=== PATIENT | male | born 1930 | race Caucasian/White ===

== ENCOUNTER 2018-04-06 18:01 | Inpatient (IN) | payer MEDICARE, BC ==
[2018-04-06 18:24] LABS: Hemoglobin 15.1 g/dL (14.0-18.0); Mean Corpuscular HGB CONC 32.2 g/dL (32.0-36.0); Mean Corpuscular Hemoglobin 29.1 pg (27.0-31.0); Mean Corpuscular Volume 90.1 fl (80.0-94.0); Mean Platelet Volume 6.5 fL (7.4-10.4); Platelet Count 284 thou/uL (130-400); RBC Distribution Width 13.9 % (11.5-14.5); Red Blood Cell (RBC) Count 5.21 mill/uL (4.70-6.10); White Blood Cell (WBC) Count 26.2 thou/uL (4.8-10.8)
[2018-04-06 18:26] LABS: INR-International Normal Ratio 1.2; PTT 25.7 SEC (22.9-36.1); Prothrombin Time 15.7 SEC (12.0-14.7)
[2018-04-06 18:32] LABS: ALT (SGPT) 14 U/L (8-55); AST (SGOT) 42 U/L (5-34); Albumin 4.3 g/dL (3.4-4.8); Alkaline Phosphatase 98 U/L (40-150); Anion Gap 15 mmol/L (10-20); BUN (Urea Nitrogen) 20 mg/dL (8.4-25.7); Bilirubin, Total 1.6 mg/dL (0.2-1.2); CK (CPK) 898 U/L (30-200); Calc. Creatinine Clearance 0 mL/min (70-130); Calcium 9.5 mg/dL (7.8-10.44); Carbon Dioxide 23 mmol/L (23-31); Chloride 107 mmol/L (98-107); Estimated GFR-MDRD 60; Globulin 2.3 g/dL (2.4-3.5); Glucose 120 mg/dL (83-110); Potassium 4.6 mmol/L (3.5-5.1); Protein, Total 6.6 g/dL (5.8-8.1); Sodium 140 mmol/L (136-145)
[2018-04-06 18:36] LABS: Troponin I 0.061 ng/mL (< 0.028)
[2018-04-06 18:38] LABS: CKMB 8.1 ng/mL (0-6.6)
[2018-04-06 18:46] LABS: Lymphocytes 19 % (21-51); MDiff Complete? YES; Monocytes 6 % (0-10); Neutrophil 74 % (42-75); Reactive Lymphocytes 1 % (0-10)
--- NOTE | 2018-04-06 19:19 | CT ---
CT OF BRAIN PERFORMED WITHOUT CONTRAST ENHANCEMENT: 04/06/18 HISTORY: Left sided weakness. There is generalized ventricular and sulcal prominence. There is some asymmetric decreased attenuatio n of the right middle cerebral artery territory and in the right posterior [id number]- occipital junction there is a foci of hemorrhage measuring slightly greater than 1 cm. There is also a smaller foci of hemorrhage along the gyri in the parietal region. There is no mass effect associate d with this. The mastoid air cells and visualized sinuses are clear. IMPRESSION: Decreased attenuation of the right middle cerebral artery territory suggesting a right MCA infarct wh ich appears acute. There is a hemorrhagic component to this. The findings discussed with Dr. Johnson. POS: [facility]
--- NOTE | 2018-04-06 20:30 | RAD ---
PORTABLE CHEST: 04/06/18 COMPARISON: 12/28/14 study. HISTORY: Stroke symptoms. Heart size is borderline. There are atherosclerotic changes of the aorta. The lungs are clear of infi ltrates. No signs of failure. A right humeral prosthesis is present. IMPRESSION: Borderline heart size. POS: [facility]
[2018-04-06 20:45] LABS: Bilirubin Negative (Negative); Blood, Urine Large (Negative); Clarity CLOUDY (Clear); Glucose, Urine (Dipstick) Negative (Negative); Leukocyte Negative (Negative); Nitrite Negative (Negative); Protein, Urine (Dipstick) Trace mg/dL (Neg-Trace); Specific Gravity, Urine 1.013 (1.002-1.036); Urobilinogen 0.2 mg/dL (0.2-1.0)
[2018-04-06 20:49] LABS: Bacteria/HPF None Seen HPF (None Seen); Hyaline Casts/LPF 0-3 HYALINE CAST LPF (0-3 Hyaline); Pathc Cast-AUWi Flag 0.29 (0-2.49); Squamous Epithelial 0-3 HPF (0-3); WBC/HPF 0-3 HPF (0-3)
[2018-04-06 23:11] LABS: Lactic Acid 1.7 mmol/L (0.5-2.2)
[2018-04-07] MEDS ORDERED: Sodium Chloride 0.9% 1,000 ML IV SCH ×2 (00:45→02:30)
[2018-04-07 01:55] LABS: Troponin I 0.064 ng/mL (< 0.028)
[2018-04-07] MEDS ORDERED: Nitroglycerin 0.4 MG TAB (25 Tab Bottle) PO PRN (01:59)
[2018-04-07] MEDS ORDERED: Ondansetron ODT 4 MG TAB PO PRN (02:14)
[2018-04-07] MEDS ORDERED: Senokot 8.6 MG TAB PO PRN (02:14)
[2018-04-07] MEDS ORDERED: Ondansetron HCl/PF 4 MG/2 ML Vial IVP PRN (02:14)
[2018-04-07] MEDS ORDERED: Calcium Carbonate 500 MG ChewTAB PO PRN (02:14)
--- NOTE | 2018-04-07 02:50 | HP ---
DATE OF ADMISSION: 04/06/2018 PRIMARY CARE PHYSICIAN: Rikki Capps M.D. PRIMARY TRANSPORTATION CONSULTANT: Dr. Chauhan. CHIEF COMPLAINT: Sudden onset of left-sided weakness. HISTORY OF PRESENT ILLNESS: The patient is an 88-year-old white male with paroxysmal atrial fibrilla tion on Eliquis, presented to the emergency room with stroke like symptoms. Around 2:00 p.m. while he was at home, he had sudden onset of left-sided weakness along with numbness and slurring of speech with facial droop. He was alone at that time. He was last seen normal by amina ladd around 12:00 p.m. He denies any double vision, blurring of vision, chest pain, palpitations or fall. He is compliant with all of his medications. In the emergency room, his initial vital signs showed temperature 98.4, respirations 16, pulse of 97, blood pressure of 164/102 with O2 saturation 96% on room air. CT scan of the brain without contrast showed right MCA territory infarct with a hemorrhagic component. Neurology and Neurosurgery were no tified by the ER. His EKG showed atrial fibrillation with left bundle branch block. PAST MEDICAL HISTORY: 1. Paroxysmal atrial fibrillation on anticoagulation. 2. Coronary artery disease. 3. Hypertension. 4. Hypothyroidism. 5. Hyperlipidemia. 6. Anxiety and depression. 7. History of hemothorax in 2013 requiring chest tube. His INR at that time was 16. 8. Urinary retention requiring intermittent straight catheterization. 9. Diverticulosis. PAST SURGICAL HISTORY: 1. Chest tube placement. 2. Colonoscopy. 3. Partial colectomy. 4. Tonsillectomy. 5. Vasectomy. 6. Thyroidectomy. 7. Prostate biopsies. 8. Shoulder replacement. ALLERGIES: The patient is allergic to PENICILLIN. CURRENT HOME MEDICATIONS: The patient is unable to recall all of his home medications. Family to br ing the accurate list of medications. SOCIAL HISTORY: The patient currently lives at home alone. His last year. He rosemary es current use of tobacco, alcohol, or drug use. He makes his own decisions with the help of his fam yudy. FAMILY HISTORY: Father with liver cancer. REVIEW OF SYSTEMS: The following complete review of systems was negative, unless otherwise mentioned in the HPI or below: Constitutional: Weight loss or gain, ability to conduct usual activities. Sk in: Rash, itching. Eyes: Double vision, pain. ENT/Mouth: Nose bleeding, neck stiffness, pain, ten derness. Cardiovascular: Palpitations, dyspnea on exertion, orthopnea. Respiratory: Shortness of breath, wheezing, cough, hemoptysis, fever or night sweats. Gastrointestinal: Poor appetite, abdomi nal pain, heartburn, nausea, vomiting, constipation, or diarrhea. Genitourinary: Urgency, frequency , dysuria, nocturia. Musculoskeletal: Pain, swelling. Neurologic/Psychiatric: Anxiety, depression . Allergy/Immunologic: Skin rash, bleeding tendency. PHYSICAL EXAMINATION: VITAL SIGNS: As discussed above. GENERAL: An 88-year-old male in no apparent distress, facial droop noted. HEENT: Head atraumatic, normocephalic. Sclerae are anicteric. Moist mucous membranes. No oral les ion. NECK: Supple, no JVD appreciated. No carotid bruit. LUNGS: Clear to auscultation bilaterally, no wheezing, rales or rhonchi appreciated. HEART: S1, S2 present. Irregularly irregular, 2/6 systolic murmur over the mitral area. ABDOMEN: Soft and nontender. Bowel sounds present, no rebound or guarding. EXTREMITIES: No significant edema or calf tenderness. NEUROLOGIC: There was 2-3/5 weakness in the left upper extremity and 3/5 weakness in the left lower extremity. His NIH score in the ER was 17. Sensation was diminished on the left. Right side had no rmal power. Facial droop was noted. Otherwise, cranial nerves II-XII were normal on examination. PSYCHIATRY: Alert, awake, oriented x3. SKIN: Warm and dry. LYMPH NODES: No palpable lymph nodes in the neck. PERIPHERAL VASCULAR: Radial pulses palpable bilaterally. MUSCULOSKELETAL: No joint swelling or tenderness. LABORATORY FINDINGS: CBC showed WBC 26.2 without left shift. INR 1.2. Chemistries showed sodium 14 0, potassium 4.6, chloride 107, bicarbonate 23, BUN 20, creatinine 1.1, glucose of 120. Lactic acid 2.6, repeat lactic acid 1.7. Troponin was 0.061. CK was 898, total bilirubin 1.6, AST 42. Urinalys is was negative for wbc or bacteria. Chest x-ray by my review was negative for infiltrate or edema. CT scan of the brain by my review as discussed above. EKG by my review as discussed above. IMPRESSION: 1. 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 Eliquis will be discontinued. Neurology and Neurosurgery will be consulted. We will repeat CT scan of the brain in a.m. 2. Chronic atrial fibrillation with intermittent rapid ventricular response. We will consult Cardio logy. The patient normally follows Dr. Chauhan. Anticoagulation will be discontinued as discussed above. We will resume his home medications once confirmed. 3. Hypothyroidism. We will resume levothyroxine once dose confirmed. 4. Hypertension. We will continue to monitor. We will keep his blood pressure below 150-160. 5. Urinary retention. The patient requires urinary straight catheterization on and off at home. We will place a Palm catheter. 6. Anxiety and depression. The patient denies any suicidal ideation. We will resume home medicatio ns once confirmed. 7. Hyperlipidemia. The patient will be started on statins. 8. PENICILLIN allergy. 9. Leukocytosis without significant left shift. We will continue to monitor. A chest x-ray was neg ative. Urinalysis was negative. 10. Lactic acidosis, probably secondary to dehydration. His lactic acid improved after IV hydration . 11. Elevated CK. The patient denies any recent fall or injuries. We will continue IV hydration. 12. Elevated troponins, probably secondary to demand ischemia. 13. Chronic kidney disease stage 2. 14. Abnormal liver function tests of unclear etiology. We will monitor. 15. Coronary artery disease. 16. 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 17. Degenerative joint disease. Plan of care was discussed with the patient in detail. He stated understanding.
[2018-04-07] MEDS: Labetalol HCl 100 MG/20 ML VIAL SLOW IVP PRN (03:59)
[2018-04-07 05:20] LABS: Anion Gap 11 mmol/L (10-20); BUN (Urea Nitrogen) 17 mg/dL (8.4-25.7); Calc. Creatinine Clearance 82 mL/min (70-130); Calcium 9.1 mg/dL (7.8-10.44); Carbon Dioxide 26 mmol/L (23-31); Chloride 104 mmol/L (98-107); Estimated GFR-MDRD 75; Glucose 116 mg/dL (83-110); Magnesium 1.9 mg/dL (1.6-2.6); Phosphorus 2.5 mg/dL (2.3-4.7); Potassium 3.8 mmol/L (3.5-5.1); Sodium 137 mmol/L (136-145)
[2018-04-07 05:46] LABS: Hemoglobin 14.1 g/dL (14.0-18.0); Mean Corpuscular HGB CONC 32.6 g/dL (32.0-36.0); Mean Corpuscular Hemoglobin 29.1 pg (27.0-31.0); Mean Corpuscular Volume 89.2 fl (80.0-94.0); Mean Platelet Volume 6.5 fL (7.4-10.4); Platelet Count 196 thou/uL (130-400); RBC Distribution Width 13.7 % (11.5-14.5); Red Blood Cell (RBC) Count 4.83 mill/uL (4.70-6.10); White Blood Cell (WBC) Count 19.3 thou/uL (4.8-10.8)
[2018-04-07 05:47] LABS: Band 2 % (5-11); Lymphocytes 16 % (21-51); MDiff Complete? YES; Monocytes 6 % (0-10); Neutrophil 76 % (42-75)
--- NOTE | 2018-04-07 07:26 | CON ---
DATE OF CONSULTATION: 04/07/2018 REASON FOR EVALUATION: Small amount of hemorrhagic conversion of an ischemic stroke. HISTORY OF PRESENT ILLNESS: Mr. Russ Flores is a very pleasant 88-year-old gentleman with paroxys mal atrial fibrillation on Eliquis who came to the emergency room yesterday with new onset dysarthria and left-sided weakness that started at 2:00 p.m. when he was at home where this is painless and by the time he is in the emergency department, CT examination of the brain showed hypodensity in the MCA distribution in the right hemisphere. There was a small amount of hemorrhagic conversion of the wed ge shaped ischemic defect. Neurosurgery was consulted for that reason. He was admitted to the ICU o vernight and watched carefully by our nursing staff. His neurological examination has been stable to slightly improved this morning and a new CT scan has been done. PAST MEDICAL HISTORY: Atrial fibrillation, coronary artery disease, hypertension, hypothyroidism, hy perlipidemia, anxiety, depression, history of hemothorax in 2018 (his INR at that time on Coumadin wa s 16) urinary retention, diverticulosis. PAST SURGICAL HISTORY: Chest tube placement, colonoscopy, partial colectomy, tonsillectomy, vasectom y, thyroidectomy, prostate biopsies and shoulder replacement. ALLERGIES: PENICILLIN. HOME MEDICATIONS: Family has brought an accurate list of medications which is on the chart. SOCIAL HISTORY: Mr. Flores is recently . He does not currently use tobacco, alcohol or cameron gs. He lives independently. FAMILY HISTORY: His father had liver cancer. REVIEW OF SYSTEMS: Otherwise negative. PHYSICAL EXAMINATION: VITAL SIGNS: This morning, blood pressure of 147/57, heart rate of 80, respiratory rate is 17, oxyge n saturation of 98. Most recent temperature was 98.2 degrees Fahrenheit. GENERAL: When I entered the room, Mr. Flores is speaking with his nurses on return from his CAT sc an. HEENT: His speech is slurred, but appropriate. He has difficulty getting the words out with good pr onunciation, but the content of his speech is perfectly normal and his comprehension is normal. EXTREMITIES: There is pronator drift and weakness of the left upper extremity. There is weakness of the left lower extremity, but is not as profound as the arm and face. NEUROLOGIC: There is upper motor neuron weakness of the left face. There is no severe neglect. He does extinguish to double simultaneous stimulation, but when I asked him about feeling the left side independently, he does appreciate touch. He can converse with me as I am standing on the left side o f his visual field and on his left body. IMAGING FINDINGS: Reviewed. CT examination of the brain this morning when compared with a CT examin ation last night, I do not see any significant increase in the hemorrhagic portion of the large ische nacho stroke. This is very unlikely to require any surgical intervention. The ischemic stroke is than kfully not the entire MCA distribution, the wedge that looks infarcted may have some swelling, but I think there is room to tolerate it and without any consideration for craniectomy or decompressive pro cedure. PLAN: He will be monitored closely by the medical and Neurology team for his ischemic stroke. Decis ions will be made on how to proceed with a blood thinning going forward as the Eliquis seem to be ine ffective. The Neurosurgery team will be available for questions should the need arise during this hospitalizati on. I would stay off of Eliquis until all blood products are resolved and a decision for future anti coagulation should be made once there is resolution of the hypodensities on the CT.
--- NOTE | 2018-04-07 08:21 | CT ---
CT OF HEAD NONCONTRAST: INDICATION: Intracranial hemorrhage, followup, stroke with hemorrhagic conversion. FINDINGS: Redemonstration of intracranial hemorrhage centered about the right frontoparietal region including i ntraparenchymal and adjacent extraaxial hemorrhage. There is surrounding vasogenic/cytotoxic edema. No significant shift of midline structures. Ventricular system is stable in size. There is mild ag e-related atrophy. There has been interval evolution since exam of previous day with progressive andres ma and slight increase in hemorrhage. There is prominence of the right frontoparietal and temporal s calp. Correlate clinically. IMPRESSION: Progressive hemorrhage and edema in the right frontoparietal region. Continued followup is advised. POS: [facility]
[2018-04-07] MEDS: Famotidine 20 MG TAB PO SCH (10:52)
[2018-04-07] MEDS: Docusate 100 MG CAP PO SCH ×2 (10:53→20:54)
[2018-04-07] MEDS ORDERED: Furosemide 20 MG/2 ML VIAL SLOW IVP SCH (11:00)
[2018-04-07] MEDS: Sodium Chloride 0.9% 1,000 ML IV SCH (11:00)
[2018-04-07] MEDS ORDERED: Potassium Chloride 10 MEQ TAB PO SCH (11:00)
[2018-04-07] MEDS: Furosemide 20 MG/2 ML VIAL SLOW IVP SCH (11:01)
[2018-04-07] MEDS: Potassium Chloride 10 MEQ TAB PO SCH ×2 (11:01→16:52)
--- NOTE | 2018-04-07 14:37 | PQF ---
CLINICAL DOCUMENTATION IMPROVEMENT CLARIFICATION FORM: ICD-10 Updated PLEASE DO AN ADDENDUM TO THE PROGRESS NOTE WITH ANY DOCUMENTATION UPDATES OR ADDITIONS AND CARRY THROUGH TO DC SUMMARY. THANK YOU. DATE: 04/07 ATTN: DR. Juan SMITH Please exercise your independent, professional judgment in responding to the clarification form. Clinical indicators are provided on the bottom of this form for your review Please check appropriate box(s): [ x ] Concur with 04/07 CT findings of Vasogenic/cytotoxic edema [ ] Do not concur with 04/07 CT findings of Vasogenic/cytotoxic edema [ ] Other diagnosis [ ] Unable to determine For continuity of documentation, please document condition throughout progress notes and discharge summary. Thank You. CLINICAL INDICATORS - SIGNS / SYMPTOMS / LABS 04/07 CT FINDINGS: THERE IS SURROUNDING VASOGENIC/CYTOTOXIC EDEMA. NO SIGNIFICANT SHIFT OF MIDLINE STRUCTURES. ...THERE HAS BEEN INTERVAL EVOLUTION SINCE EXAM OF PREVIOUS DAY W/PROGRESSIVE EDEMA & SLIGHT INCREASE IN HEMORRHAGE. NEUROSURGERY CONSULT DOCUMENTATION 04/07: IMAGING FINDINGS: CT EXAMINATION OF THE BRAIN THIS MORNING (04/07) WHEN COMPARED W/CT EXAMINATION LAST NIGHT, I DO NOT SEE ANY SIGNIFICANT INCREASE IN THE HEMORRHAGIC PORTION... THE WEDGE THAT LOOKS INFARCTED MAY HAVE SOME SWELLING, BUT I THINK THERE IS ROOM TO TOLERATE IT... RISK FACTORS: ACUTE R MCA CVA W/HEMORRHAGIC CONVERSION CHRONIC AFIB ON ELIQUIS AT HOME TREATMENTS: IV LASIX (STARTED 04/07) CCU MONITORING NEURO SURGERY CONSULT THANK YOU! Magda (This form is maintained as a part of the permanent medical record) 2014 [employer]. All Rights Reserved Magda Rogel RN, BSN [email or web address] Office: [phone] [facility]
--- NOTE | 2018-04-07 15:50 | PDOC.PN ---
- Subjective Encounter Start Date: 04/07/18 Encounter Start Time: 12:15 Subjective: awake, no sob or chest pain -: responds well to verbal questions -: is moving all extremities including left leg - Objective Resuscitation Status: Resuscitation Status FULL:Full Resuscitation MAR Reviewed: Yes Vital Signs & Weight: Vital Signs (12 hours) Temp Pulse Pulse Pulse Resp BP BP 04/07/18 12:00 98.2 F 04/07/18 11:38 94 88 154/77 H 04/07/18 08:24 86 82 150/79 H 04/07/18 08:00 98.9 F 90 20 04/07/18 04:00 98.2 F 04/07/18 03:59 88 184/79 H BP Pulse Ox Pulse Ox Pulse Ox 04/07/18 12:00 04/07/18 11:38 160/76 H 99 100 04/07/18 08:24 144/76 H 99 100 04/07/18 08:00 100 04/07/18 04:00 04/07/18 03:59 Weight Admit Weight 235 lb Weight 235 lb 14.314 oz Most Recent Monitor Data Heart Rate from ECG 99 NIBP 157/75 NIBP BP-Mean 106 Respiration from ECG 18 SpO2 100 I&O: 04/06/18 04/07/18 04/08/18 06:59 06:59 06:59 Intake Total 513 Output Total 635 1775 Balance -122 -1775 Result Diagrams: 04/07/18 04:22 04/07/18 04:22 Phys Exam - Physical Examination HEENT: PERRLA dry mucosa Neck: no JVD, supple Respiratory: no wheezing, no rales Cardiovascular: RRR, no significant murmur Gastrointestinal: soft, non-tender, positive bowel sounds Musculoskeletal: pulses present, edema present Neurological: moves all 4 limbs left hemiparesis, facial palsy, dysarthria Psychiatric: A&O x 3 Dx/Plan (1) Acute CVA (cerebrovascular accident) Code(s): I63.9 - CEREBRAL INFARCTION, UNSPECIFIED Status: Acute Comment: right mca infarct with hemorrhagic conversion, dysarthria, left hemiparesis improving, facial palsy (2) Cerebral hemorrhage Code(s): I61.9 - NONTRAUMATIC INTRACEREBRAL HEMORRHAGE, UNSPECIFIED Status: Acute Comment: sec to above with vasogenic edema (3) Afib Code(s): I48.91 - UNSPECIFIED ATRIAL FIBRILLATION Status: Chronic Qualifiers: Atrial fibrillation type: chronic Qualified Code(s): I48.2 - Chronic atrial fibrillation (4) CLL (chronic lymphocytic leukemia) Code(s): C91.90 - LYMPHOID LEUKEMIA, UNSPECIFIED NOT HAVING ACHIEVED REMISSION Status: Chronic (5) HTN (hypertension) Code(s): I10 - ESSENTIAL (PRIMARY) HYPERTENSION Status: Chronic Qualifiers: Hypertension type: essential hypertension Qualified Code(s): I10 - Essential (primary) hypertension (6) Dyslipidemia Code(s): E78.5 - HYPERLIPIDEMIA, UNSPECIFIED Status: Chronic (7) Hypothyroidism Code(s): E03.9 - HYPOTHYROIDISM, UNSPECIFIED Status: Chronic Qualifiers: Hypothyroidism type: unspecified Qualified Code(s): E03.9 - Hypothyroidism , unspecified (8) Demand ischemia of myocardium Code(s): I24.8 - OTHER FORMS OF ACUTE ISCHEMIC HEART DISEASE Status: Acute - Plan is off eliquis, sbp to less than 140's and above 120 -: oral diet per speech advice -: is on oral cardizem, lasix, lipitor and pepcid -: may tx to stroke unit, bleed is stable in size -: inr is 1.2, ptt is 25, to mobilize with PT as tolerated * . Review of Systems - Medications/Allergies Allergies/Adverse Reactions: Allergies Allergy/AdvReac Type Severity Reaction Status Date / Time Penicillins Allergy Anaphylaxis Verified 09/06/16 15:33 Medications: Current Medications Acetaminophen (Tylenol) 650 mg PO Q4H PRN PRN Reason: Headache/Fever or Pain Atorvastatin Calcium (Lipitor) 20 mg PO HS PENDING SALE TO [facility] Calcium Carbonate (Tums) 1,000 mg PO Q4H PRN PRN Reason: Heartburn or Indigestion Diltiazem HCl (Cardizem) 30 mg PO Q6H PRN PRN Reason: HR >120 sustained Docusate Sodium (Colace) 100 mg PO BID PENDING SALE TO [facility] Last Admin: 04/07/18 10:53 Dose: 100 mg Famotidine (Pepcid) 20 mg PO DAILY PENDING SALE TO [facility] Last Admin: 04/07/18 10:52 Dose: 20 mg Furosemide (Lasix) 20 mg SLOW IVP DAILY PENDING SALE TO [facility] Last Admin: 04/07/18 11:01 Dose: Not Given Sodium Chloride (Normal Saline 0.9%) 1,000 mls @ 80 mls/hr IV .[id number] PENDING SALE TO [facility] Last Admin: 04/07/18 11:00 Dose: 1,000 mls Labetalol HCl (Normodyne) 10 mg SLOW IVP Q1H PRN PRN Reason: Systolic BP > 160 Last Admin: 04/07/18 03:59 Dose: 10 mg Nitroglycerin (Nitrostat) 0.4 mg PO Q5MIN PRN PRN Reason: Chest Pain Ondansetron HCl (Zofran Odt) 4 mg PO Q6H PRN PRN Reason: Nausea/Vomiting Ondansetron HCl (Zofran) 4 mg IVP Q6H PRN PRN Reason: Nausea/Vomiting Potassium Chloride (Klor-Con 10) 10 meq PO BID-[facility] Last Admin: 04/07/18 11:01 Dose: Not Given Senna (Senokot) 2 tab PO HSPRN PRN PRN Reason: Constipation Sodium Chloride (Flush - Normal Saline) 10 ml IVF PRN PRN PRN Reason: Saline Flush
--- NOTE | 2018-04-07 18:03 | CON ---
DATE OF CONSULTATION: 04/07/2018 REASON FOR CONSULTATION: Stroke and atrial fibrillation. HISTORY OF PRESENT ILLNESS: Mr. Russ Flores is a pleasant 88-year-old gentleman, a patient of Dr. Rock Chauhan in [place]. The patient was admitted to the hospital with stroke symptoms and has been found to have an ischemic stroke, which was converted to hemorrhagic. The patient has severe left-sided weakness. From what I can tell in talking to him is chronic atrial fibrillation. He is on Coumadin years ago, but had significant bleeding into his chest including chest tube placement. Eventually had to take him off Coumadin. He has been maintained on Eliquis. He has done well up until at this time. He does not have any coronary disease as far as he knows. He does have history of hypertension. PAST MEDICAL HISTORY: 1. Atrial fibrillation. 2. Coronary artery disease. 3. Hyperlipidemia. 4. History of hemothorax, it is noted in the chart that his INR was 16 at that time. PAST SURGICAL HISTORY: 1. Chest tube placement. 2. Colonoscopy. 3. Partial colectomy. ALLERGIES: PENICILLIN. MEDICATIONS: The patient tells me he was taking Eliquis 2.5 mg twice a day. SOCIAL HISTORY: No alcohol or tobacco. FAMILY HISTORY: Father with cancer. REVIEW OF SYSTEMS: CONSTITUTIONAL: No significant weight gain or loss. VISION : No changes. HEARING: No changes. PULMONARY: No cough or wheezing. GASTROINTESTINAL: No nausea, vomiting, diarrhea. SKIN: No rashes. NEUROLOGIC : No unilateral weakness or numbness. PSYCHIATRIC: No unusual depression or anxiety. HEMATOLOGIC: No unusual bruising. GENITOURINARY: No burning with urination. PHYSICAL EXAMINATION: GENERAL: This is a pleasant gentleman resting comfortably. VITAL SIGNS: His blood pressure is 142/72, pulse is 80, its irregular, atrial fibrillation. EYES: Sclerae nonicteric. MOUTH: Mucous membranes moist. NECK: Supple, no lymphadenopathy. LUNGS: Clear, no wheezing, rales or rhonchi. CARDIAC: Irregularly irregular. ABDOMEN: Soft, nontender. EXTREMITIES: There is moderate to severe peripheral edema. SKIN: Warm and dry. PSYCHIATRIC: Not moving his left side. He is conversing. PERTINENT LABORATORY DATA AND X-RAY FINDINGS: Lactic acid was 2.6. Troponin 0.07. Creatinine is 0.95. EKG reveals atrial fibrillation. CONCLUSION: 1. Atrial fibrillation, status post stroke, probably ischemic, with converted to hemorrhagic, right middle cerebral artery, most likely embolic from heart. 2. History of hemothorax, on Coumadin. PLAN: 1. Obviously have to stop anticoagulation at this point. 2. Will give him intravenous Lasix as appears somewhat volume overloaded. 3. Echocardiogram pending. 4. Reduce intravenous fluid. 5. We have requested from Dr. Chauhan office recent note to see what his medications are. MTDD
--- NOTE | 2018-04-07 19:44 | CON ---
DATE OF CONSULTATION: 04/07/2018 HISTORY OF PRESENT ILLNESS: The patient is an 88-year-old male. He presented to this hospital with right frontoparietal hemorrhage. CT this morning showed interval progression. He has been seen by the Hospitalist, Neurosurgery and Cardiology. I was consulted to assist in his management in the ICU. He has a history of paroxysmal atrial fibrillation, on anticoagulants. He presented with dysarthria and left-sided weakness. PAST MEDICAL HISTORY: Otherwise remarkable for; 1. Coronary artery disease. 2. Hypertension. 3. Hypothyroidism. 4. Lipid disorder. 5. Anxiety and depression. 6. History of a hemothorax with excessive anticoagulation (he had an INR on warfarin was 16). 7. History of urinary retention. 8. History of diverticulosis. 9. History of chest tube placement with his hemothorax. 10. History of colonoscopy. 11. History of a colectomy. 12. History of tonsillectomy. 13. History of vasectomy. 14. History of thyroidectomy. 15. History of prostate biopsies. 16. History of shoulder replacement. SOCIAL HISTORY: He is nonsmoker, nondrinker. He does not use drugs. ALLERGIES: Reports PENICILLIN allergy. MEDICATIONS: Have been reviewed. FAMILY HISTORY: Positive for cancer. Negative for lung disease in early age. REVIEW OF SYSTEMS: 10 point otherwise negative. PHYSICAL EXAMINATION: GENERAL: 88 y/o male with right frontoparietal hemorrhage. VITAL SIGNS: Blood pressure is 135/75, heart rate 74, respiratory rate is 18, oximetry is 97. He is protecting his airways, in no distress. HEENT: Pupils react. Sclerae is anicteric. He is still dysarthric. LUNGS: Clear. HEART: Regular rhythm. S1 and S2 are normal. ABDOMEN: Soft and nontender. EXTREMITIES: Without clubbing, cyanosis, or edema. NEUROLOGICAL: Shows equal 4 extremities strength. The neurosurgeons opinion was a CT had not changed significantly since yesterday. IMPRESSION: Brain hemorrhage on anticoagulants, paroxysmal atrial fibrillation. PLAN: Continue supportive care. He probably should never have anticoagulation again since he has had two major complications from anticoagulation. He appears to be stable. He is protecting his airway. There are no acute pulmonary issues at this point in time. If Neurosurgery agrees, he would appear to be stable to move to the stroke unit. This is a 70-minute consult with greater than 50% of the consult time was spent on the unit coordinating care. CLARK
[2018-04-07] MEDS: Acetaminophen 325 MG TAB PO PRN (20:53)
[2018-04-07] MEDS: Atorvastatin Calcium 20 MG TAB PO SCH (20:54)
--- NOTE | 2018-04-07 21:16 | CON ---
DATE OF CONSULTATION: 04/07/2018 REFERRING PHYSICIAN: PÉREZ Ariza REASON FOR CONSULTATION: Stroke. HISTORY OF PRESENT ILLNESS: Mr. Flores is a pleasant 88-year-old male who has been consu lted for evaluation of a stroke. History was obtained from patient as well as the patient's medical chart. The patient reports that yesterday around 2:00 p.m., he had a sudden onset of left-sided weak ness along with numbness and slurring of his speech with facial droop. He was alone at that time. Jeff marcos was last seen normal by his caregiver around 12:00 p.m. He was brought to the [facility] where he had a CT scan of the head done, which showed acute hypodensity in the right MCA distri bution with a small hemorrhagic conversion. For this reason, stroke alert was not initiated. He was not a candidate for IV TPA due to this reason. I am being asked to further evaluate for this new fi ndings on the CT scan of the head. Today, patient reports that he feels somewhat better and improved in his strength. He denies any headache, chest pain, palpitation, nausea, vomiting, abdominal pain. He does have a history of atrial fibrillation. He had been on Coumadin in the past; however, had a complication with a supratherapeutic INR and thus he was switched to Eliquis about 2 years ago. He has been doing well on Eliquis up until this visit. 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 PAST SURGICAL HISTORY: Significant for chest tube placement, colonoscopy, partial colectomy, tonsill ectomy, vasectomy, thyroidectomy, and shoulder replacement. CURRENT MEDICATIONS: Please review MAR. ALLERGIES: Include PENICILLIN. SOCIAL HISTORY: He denies smoking, alcohol use, or illicit drug use. FAMILY HISTORY: Significant for father with liver cancer. REVIEW OF SYSTEMS: As mentioned in HPI, otherwise negative. PHYSICAL EXAMINATION: VITAL SIGNS: Blood pressure of 157/75, pulse of 99, temperature of 98.2, respirations of 18, O2 sats of 100% on room air. GENERAL: Well-developed, well-nourished male in no apparent distress. RESPIRATORY: Clear to auscultation bilaterally. CARDIOVASCULAR: Regular rate and rhythm. NEUROLOGIC: Mental status: The patient is awake, alert, oriented x3. Speech and language: Mildly dysarthric speech noted. Cranial nerves: Pupils are 3 mm and reactive. Visual sparks are intact. External muscles are intact. He has a left facial droop. Tongue and uvula are midline. Motor exam showed normal tone and bulk on the right upper and right lower extremity. He has a decreased tone on the left upper and left lower extremity. His strength in the left upper extremity is 3-4/5 with a p ronator drift on the left upper extremity. His strength in the left lower extremity is 4+/5 with a p ronator drift present on the left lower extremity. Sensory: Sensation is diminished on the left upp er and left lower extremity. Babinski: Plantar responses extensor on the left, flexion on the right . Gait and Romberg coordination could not be tested. LABORATORY DATA: Reviewed, which included CBC, coag panel, CMP, troponin, urinalysis which is signif icant for WBC of 19.3. PT of 15.7, INR 1.2, PTT of 25.7. Troponin of 0.064. Otherwise, unremarkabl e. IMAGING STUDIES: CT head without contrast done from today was reviewed which showed right frontal pa rietal region ischemic infarct with hemorrhagic conversion. IMPRESSION: 1. 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 2. Hemorrhagic conversion to the ischemic infarct. 3. Left-sided weakness, noted to #1. PLAN: Mr. Flores is a pleasant 88-year-old male who presented with the acute onset left- sided weakness and numbness. He has a history of atrial fibrillation. He is on Eliquis. He did hav e a CT head without contrast which did show acute right middle cerebral artery distribution ischemic infarct with mild hemorrhagic conversion. At this time, I will hold off on using Eliquis. I would r ecommend repeating CT head without contrast on tomorrow morning. If he continues to have a hemorrhag ic conversion, we will hold off until the hemorrhage is resolved and then can restart on anticoagulat ion therapy. Since he had a stroke while on Eliquis, he feels Eliquis therapy and thus I would recom mend switching him to Xarelto when he is able to continue supportive care.
[2018-04-08] MEDS: Sodium Chloride 0.9% 1,000 ML IV SCH (00:08)
[2018-04-08] MEDS: Acetaminophen 325 MG TAB PO PRN ×3 (00:56→14:38)
[2018-04-08 04:39] LABS: #Lymphocytes 2.6 thou/uL (1.20-3.40); #Monocytes 0.9 thou/uL (0.11-0.59); #Neutrophils 9.9 thou/uL (1.40-6.50); %Basophils 0.1 % (0.0-1.0); %Eosinophils 0.1 % (0.0-10.0); %Lymphocytes 19.3 % (21.0-51.0); %Monocytes 6.8 % (0.0-10.0); %Neutrophils 73.7 % (42.0-75.0); Hemoglobin 13.9 g/dL (14.0-18.0); Mean Corpuscular HGB CONC 33.9 g/dL (32.0-36.0); Mean Corpuscular Hemoglobin 30.2 pg (27.0-31.0); Mean Platelet Volume 6.2 fL (7.4-10.4); Platelet Count 152 thou/uL (130-400); RBC Distribution Width 13.6 % (11.5-14.5); Red Blood Cell (RBC) Count 4.61 mill/uL (4.70-6.10); White Blood Cell (WBC) Count 13.4 thou/uL (4.8-10.8)
[2018-04-08 05:08] LABS: Anion Gap 11 mmol/L (10-20); BUN (Urea Nitrogen) 17 mg/dL (8.4-25.7); CK (CPK) 241 U/L (30-200); Calc. Creatinine Clearance 81 mL/min (70-130); Calcium 8.8 mg/dL (7.8-10.44); Carbon Dioxide 27 mmol/L (23-31); Cardiac Risk 2.9 (Less than 4.5); Chloride 103 mmol/L (98-107); Cholesterol 118 mg/dl (< 200 Desired); Estimated GFR-MDRD 78; Glucose 114 mg/dL (83-110); HDL Cholesterol 41 mg/dL (>60 Neg Risk); LDL Cholesterol, Calculated 57 mg/dL; Magnesium 1.8 mg/dL (1.6-2.6); Phosphorus 2.8 mg/dL (2.3-4.7); Potassium 3.6 mmol/L (3.5-5.1); Sodium 137 mmol/L (136-145); Triglycerides 98 mg/dL (Less than 150)
[2018-04-08] MEDS: Docusate 100 MG CAP PO SCH ×2 (09:19→21:02)
[2018-04-08] MEDS: Famotidine 20 MG TAB PO SCH (09:19)
[2018-04-08] MEDS: Potassium Chloride 10 MEQ TAB PO SCH ×2 (09:19→16:56)
[2018-04-08] MEDS: Furosemide 20 MG/2 ML VIAL SLOW IVP SCH (09:19)
[2018-04-08] MEDS ORDERED: Morphine 4 MG/ML VIAL SLOW IVP PRN (09:32)
--- NOTE | 2018-04-08 10:09 | CT ---
NONCONTRAST HEAD CT: COMPARISON: 04/07/18. History Followup intracranial hemorrhage. FINDINGS: Redemonstration of a hemorrhagic contusion centered in the right temporal lobe. This contusion appea rs to be associated with an intraparenchymal mass. Overall, this mass measures 1.5 x 1.5 cm. There is evidence of associated vasogenic edema. Additional areas of subarachnoid blood are noted. Small foci of cytotoxic edema may also be present. When compared to the previous examination, no significa nt interval change. No new areas of hemorrhage. IMPRESSION: Stable intracranial hemorrhage. Redemonstration of vasogenic and cytotoxic edema. The possibility o f a hemorrhagic metastatic lesion in the right cerebrum cannot be completely excluded. MRI would be beneficial. POS: NILESH
--- NOTE | 2018-04-08 11:02 | PDOC.PN ---
- Subjective Encounter Start Date: 04/08/18 Encounter Start Time: 09:00 Subjective: awake, a bit lethargic than yesterday -: has good trademark paralegal in his left hand but cant lift his elbow or shoulder up -: no nausea or headache, daughter and brother at bedside - Objective Resuscitation Status: Resuscitation Status FULL:Full Resuscitation MAR Reviewed: Yes Vital Signs & Weight: Vital Signs (12 hours) Temp Pulse Resp BP Pulse Ox 04/08/18 08:00 97.4 F L 102 H 20 165/93 H 97 04/08/18 05:55 80 155/89 H 04/08/18 03:51 98.1 F 79 16 163/88 H 97 04/08/18 00:09 98.7 F 83 16 154/81 H 97 Weight Admit Weight 235 lb Weight 223 lb 14.4 oz Most Recent Monitor Data Heart Rate from ECG 99 NIBP 157/75 NIBP BP-Mean 106 Respiration from ECG 18 SpO2 100 I&O: 04/07/18 04/08/18 04/09/18 06:59 06:59 06:59 Intake Total 513 797 720 Output Total 635 2825 250 Balance -122 -2027 470 Result Diagrams: 04/08/18 04:29 04/08/18 04:29 Phys Exam - Physical Examination HEENT: PERRLA, sclera anicteric Neck: no JVD, supple Respiratory: no wheezing, no rales Cardiovascular: RRR, no significant murmur Gastrointestinal: soft, non-tender, positive bowel sounds Musculoskeletal: pulses present, edema present left UE skin tear x2 with oozing left hemiparesis, dysarthria+ oriented well Dx/Plan (1) Acute CVA (cerebrovascular accident) Code(s): I63.9 - CEREBRAL INFARCTION, UNSPECIFIED Status: Acute Comment: right mca infarct with hemorrhagic conversion, dysarthria, left hemiparesis improving, facial palsy (2) Cerebral hemorrhage Code(s): I61.9 - NONTRAUMATIC INTRACEREBRAL HEMORRHAGE, UNSPECIFIED Status: Acute Comment: sec to above with vasogenic edema (3) Afib Code(s): I48.91 - UNSPECIFIED ATRIAL FIBRILLATION Status: Chronic Qualifiers: Atrial fibrillation type: chronic Qualified Code(s): I48.2 - Chronic atrial fibrillation (4) CLL (chronic lymphocytic leukemia) Code(s): C91.90 - LYMPHOID LEUKEMIA, UNSPECIFIED NOT HAVING ACHIEVED REMISSION Status: Chronic (5) HTN (hypertension) Code(s): I10 - ESSENTIAL (PRIMARY) HYPERTENSION Status: Chronic Qualifiers: Hypertension type: essential hypertension Qualified Code(s): I10 - Essential (primary) hypertension (6) Dyslipidemia Code(s): E78.5 - HYPERLIPIDEMIA, UNSPECIFIED Status: Chronic (7) Hypothyroidism Code(s): E03.9 - HYPOTHYROIDISM, UNSPECIFIED Status: Chronic Qualifiers: Hypothyroidism type: unspecified Qualified Code(s): E03.9 - Hypothyroidism , unspecified (8) Demand ischemia of myocardium Code(s): I24.8 - OTHER FORMS OF ACUTE ISCHEMIC HEART DISEASE Status: Acute - Plan repeat CT brain results noted, MRI per radio advice to r/o met (has vasogen -: -ic edema), on lipitor, lasix 20mg iv (edema in lower extr has reduced sign -: -ificantly), dc iv fluids for now -: ldl is 57, will get CT of chest/abd/pelvis if MRI confirms it to be met -: PT to mobilize as tolerated, elevated wbc is due to CLL * . D/w daughter who is also cotton gin yard supervisor extensively at bedside, is aware of all w/u done so far including imaging. Review of Systems - Medications/Allergies Allergies/Adverse Reactions: Allergies Allergy/AdvReac Type Severity Reaction Status Date / Time Penicillins Allergy Anaphylaxis Verified 09/06/16 15:33 Medications: Current Medications Acetaminophen (Tylenol) 650 mg PO Q4H PRN PRN Reason: Headache/Fever or Pain Last Admin: 04/08/18 05:27 Dose: 650 mg Atorvastatin Calcium (Lipitor) 20 mg PO HS [facility] Last Admin: 04/07/18 20:54 Dose: 20 mg Calcium Carbonate (Tums) 1,000 mg PO Q4H PRN PRN Reason: Heartburn or Indigestion Diltiazem HCl (Cardizem) 30 mg PO Q6H PRN PRN Reason: HR >120 sustained Docusate Sodium (Colace) 100 mg PO BID [facility] Last Admin: 04/08/18 09:19 Dose: 100 mg Famotidine (Pepcid) 20 mg PO DAILY [facility] Last Admin: 04/08/18 09:19 Dose: 20 mg Furosemide (Lasix) 20 mg SLOW IVP DAILY [facility] Last Admin: 04/08/18 09:19 Dose: 20 mg Labetalol HCl (Normodyne) 10 mg SLOW IVP Q1H PRN PRN Reason: Systolic BP > 160 Last Admin: 04/07/18 03:59 Dose: 10 mg Levothyroxine Sodium (Synthroid) 125 mcg PO 0600 [facility] Lorazepam (Ativan) 0.5 mg PO BID [facility] Metoprolol Tartrate (Lopressor) 25 mg PO BID [facility] Morphine Sulfate (Morphine) 2 mg SLOW IVP Q4H PRN PRN Reason: Chest Pain/BP Elevations Nitroglycerin (Nitrostat) 0.4 mg PO Q5MIN PRN PRN Reason: Chest Pain Ondansetron HCl (Zofran Odt) 4 mg PO Q6H PRN PRN Reason: Nausea/Vomiting Ondansetron HCl (Zofran) 4 mg IVP Q6H PRN PRN Reason: Nausea/Vomiting Potassium Chloride (Klor-Con 10) 10 meq PO BID-[facility] Last Admin: 04/08/18 09:19 Dose: 10 meq Senna (Senokot) 2 tab PO HSPRN PRN PRN Reason: Constipation Sertraline HCl (Zoloft) 50 mg PO QAM [facility] Sodium Chloride (Flush - Normal Saline) 10 ml IVF PRN PRN PRN Reason: Saline Flush Tramadol HCl (Ultram) 50 mg PO QID PRN PRN Reason: Moderate Pain (4-6)
[2018-04-08] MEDS: traMADol HCl 50 MG TAB PO PRN (11:10)
--- NOTE | 2018-04-08 15:18 | PRG ---
DATE OF SERVICE: 04/08/2018 SUBJECTIVE: Mr. Flores is a pleasant 88-year-old male with a history of chronic atrial f ibrillation, on Eliquis, presented with an acute onset of left hemiparesis and dysarthria. He is fou nd to have a right MCA distribution ischemic infarct with hemorrhagic conversion. Today, there is no t significant change in his neurological exam. The daughter is at bedside, who is a aesthetics instructor [facility] [employer] [facility], who reports that according to his son, he felt that there may be some weakness on his l eft upper extremity, but his left lower extremity has improved compared to yesterday. His speech and swallowing they feel is also improved. PHYSICAL EXAMINATION: VITAL SIGNS: Blood pressure 155/91, pulse of 84, temperature of 98.5, respirations of 18, and sats 9 7% on room air. GENERAL: A well-developed, well-nourished male in no apparent distress. RESPIRATORY: Clear to auscultation bilaterally. CARDIOVASCULAR: Regular rate and rhythm. NEUROLOGICAL EXAM: Essentially unchanged compared to yesterday. IMAGING STUDIES: CT head without contrast from today was reviewed, which showed stable appearance of the right middle cerebral artery distribution ischemic infarct with hemorrhagic conversion. Per Rad iology, there may be a possibility of hemorrhagic metastatic lesion that cannot be completely exclude d. IMPRESSION: 1. 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 2. Chronic atrial fibrillation, on anticoagulation therapy. 3. Left-sided weakness, due to #1. ASSESSMENT AND PLAN: Mr. Flores is a pleasant 88-year-old male with a history of chronic atrial fibrillation, on Eliquis, presented with acute onset left hemiparesis and dysarthria. He is found to have large right MCA distribution ischemic infarct with the hemorrhagic conversion. His rep eat CT head did not show any significant changes. It appears stable. I have discussed this with the patient's daughter and explained that we will continue to hold anticoagulation therapy. I will obta in MRI brain with and without contrast on Tuesday. As per Radiology, there is a concern for possible hemorrhagic metastatic lesion. We will continue PT, OT, speech therapy. I have explained to the win hinton that given his risk for hemorrhage in the past with the Coumadin as well as Eliquis, restarting on another anticoagulation therapy may increase the risk for hemorrhage in the future. The risk of having a stroke while off of anticoagulation therapy is there; however, the risk for hemorrhagic comp lication is higher and thus I would probably prefer to use antiplatelet therapy with aspirin. She wi ll decide on this and let us know. Continue supportive care.
--- NOTE | 2018-04-08 18:24 | PRG ---
DATE OF SERVICE: 04/08/2018 SUBJECTIVE: Mr. Flores is doing well. He is recovering from a stroke. OBJECTIVE: VITAL SIGNS: His blood pressure is variable, most recent 146/74, pulse is in the 80s. LUNGS: Clear. CARDIAC: Irregular. IMAGING: Echocardiogram reveals ejection fraction of 50% to 55%, moderately enlarged left atrium, ma rkedly enlarged right atrium, elevation of pulmonary artery pressure. ASSESSMENT: 1. Recent embolic stroke, which is a hemorrhagic conversion. 2. Atrial fibrillation, chronic. 3. Left bundle branch block pattern. PLAN: 1. Continue rate controlled. 2. Not a candidate for anticoagulation at this point. 3. Long discussion with the family, especially his daughter, who is visiting from [place], about the possibility of a Watchman device ultimately. Once the anticoagulation can be resumed, then this could be placed and he could go off the anticoagulation after 6 weeks.
[2018-04-08] MEDS: Metoprolol Tartrate 25 MG TAB PO SCH (21:02)
[2018-04-08] MEDS: Atorvastatin Calcium 20 MG TAB PO SCH (21:02)
[2018-04-08] MEDS: Lorazepam 0.5 MG TAB PO SCH (21:02)
[2018-04-09] MEDS: Labetalol HCl 100 MG/20 ML VIAL SLOW IVP PRN ×2 (00:38→06:06)
[2018-04-09] MEDS: Levothyroxine Sodium 125 MCG TAB PO SCH (06:06)
[2018-04-09] MEDS ORDERED: Potassium Chloride 20 MEQ TAB PO SCH (07:45)
[2018-04-09] MEDS ORDERED: Furosemide 20 MG/2 ML VIAL SLOW IVP SCH (08:00)
[2018-04-09] MEDS: Famotidine 20 MG TAB PO SCH (08:57)
[2018-04-09] MEDS: Potassium Chloride 10 MEQ TAB PO SCH ×2 (08:57→16:07)
[2018-04-09] MEDS: Metoprolol Tartrate 25 MG TAB PO SCH ×2 (08:57→21:24)
[2018-04-09] MEDS: Potassium Chloride 20 MEQ TAB PO SCH (08:57)
[2018-04-09] MEDS: Docusate 100 MG CAP PO SCH ×2 (08:57→21:24)
[2018-04-09] MEDS: Lorazepam 0.5 MG TAB PO SCH ×2 (08:57→21:24)
[2018-04-09 09:21] LABS: Anion Gap 13 mmol/L (10-20); BUN (Urea Nitrogen) 19 mg/dL (8.4-25.7); Calc. Creatinine Clearance 81 mL/min (70-130); Calcium 8.8 mg/dL (7.8-10.44); Carbon Dioxide 28 mmol/L (23-31); Chloride 101 mmol/L (98-107); Estimated GFR-MDRD 81; Glucose 95 mg/dL (83-110); Potassium 3.8 mmol/L (3.5-5.1); Sodium 138 mmol/L (136-145)
--- NOTE | 2018-04-09 12:32 | PDOC.PN ---
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 -: no headache - Objective Resuscitation Status: Resuscitation Status FULL:Full Resuscitation MAR Reviewed: Yes Vital Signs & Weight: Vital Signs (12 hours) Temp Pulse Resp BP BP Pulse Ox 04/09/18 12:00 97.5 F L 72 14 144/70 H 96 04/09/18 08:00 97.4 F L 71 16 04/09/18 07:36 97.4 F L 71 16 160/89 H 96 04/09/18 06:06 72 164/91 H 04/09/18 05:34 98 04/09/18 05:30 97.2 F L 71 18 164/91 H 93 L 04/09/18 02:48 156/99 H 04/09/18 00:38 70 167/97 H Weight Admit Weight 235 lb Weight 216 lb 14.4 oz Most Recent Monitor Data Heart Rate from ECG 99 NIBP 157/75 NIBP BP-Mean 106 Respiration from ECG 18 SpO2 100 I&O: 04/08/18 04/09/18 04/10/18 06:59 06:59 06:59 Intake Total 797 2054 Output Total 2825 250 Balance -2027 1804 Result Diagrams: 04/08/18 04:29 04/09/18 08:47 Phys Exam - Physical Examination HEENT: PERRLA, moist MMs Neck: no JVD, supple Respiratory: no wheezing, no rales Cardiovascular: RRR, no significant murmur Gastrointestinal: soft, non-tender, positive bowel sounds Musculoskeletal: no edema, pulses present Neurological: moves all 4 limbs left hemiparesis, dysarthria Psychiatric: A&O x 3 Dx/Plan (1) Acute CVA (cerebrovascular accident) Code(s): I63.9 - CEREBRAL INFARCTION, UNSPECIFIED Status: Acute Comment: right mca infarct with hemorrhagic conversion, dysarthria, left hemiparesis improving, facial palsy (2) Cerebral hemorrhage Code(s): I61.9 - NONTRAUMATIC INTRACEREBRAL HEMORRHAGE, UNSPECIFIED Status: Acute Comment: sec to above with vasogenic edema (3) Afib Code(s): I48.91 - UNSPECIFIED ATRIAL FIBRILLATION Status: Chronic Qualifiers: Atrial fibrillation type: chronic Qualified Code(s): I48.2 - Chronic atrial fibrillation (4) CLL (chronic lymphocytic leukemia) Code(s): C91.90 - LYMPHOID LEUKEMIA, UNSPECIFIED NOT HAVING ACHIEVED REMISSION Status: Chronic (5) HTN (hypertension) Code(s): I10 - ESSENTIAL (PRIMARY) HYPERTENSION Status: Chronic Qualifiers: Hypertension type: essential hypertension Qualified Code(s): I10 - Essential (primary) hypertension (6) Dyslipidemia Code(s): E78.5 - HYPERLIPIDEMIA, UNSPECIFIED Status: Chronic (7) Hypothyroidism Code(s): E03.9 - HYPOTHYROIDISM, UNSPECIFIED Status: Chronic Qualifiers: Hypothyroidism type: unspecified Qualified Code(s): E03.9 - Hypothyroidism , unspecified (8) Demand ischemia of myocardium Code(s): I24.8 - OTHER FORMS OF ACUTE ISCHEMIC HEART DISEASE Status: Acute - Plan MRI official results are pending, will f/u -: d/w daughter at bedside, PT to mobilize as tolerated, rehab eval -: encourage po intake, ensure 1 can tid -: speech to advance diet as tolerated -: increase lasix to bid iv, continue lopressor, kdur * . Review of Systems - Medications/Allergies Allergies/Adverse Reactions: Allergies Allergy/AdvReac Type Severity Reaction Status Date / Time Penicillins Allergy Anaphylaxis Verified 09/06/16 15:33 Medications: Current Medications Acetaminophen (Tylenol) 650 mg PO Q4H PRN PRN Reason: Headache/Fever or Pain Last Admin: 04/08/18 14:38 Dose: 650 mg Atorvastatin Calcium (Lipitor) 20 mg PO HS [facility] Last Admin: 04/08/18 21:02 Dose: 20 mg Calcium Carbonate (Tums) 1,000 mg PO Q4H PRN PRN Reason: Heartburn or Indigestion Diltiazem HCl (Cardizem) 30 mg PO Q6H PRN PRN Reason: HR >120 sustained Docusate Sodium (Colace) 100 mg PO BID [facility] Last Admin: 04/09/18 08:57 Dose: 100 mg Famotidine (Pepcid) 20 mg PO DAILY [facility] Last Admin: 04/09/18 08:57 Dose: 20 mg Furosemide (Lasix) 20 mg SLOW IVP 0600,1400 [facility] Labetalol HCl (Normodyne) 10 mg SLOW IVP Q1H PRN PRN Reason: Systolic BP > 160 Last Admin: 04/09/18 06:06 Dose: 10 mg Levothyroxine Sodium (Synthroid) 125 mcg PO 0600 [facility] Last Admin: 04/09/18 06:06 Dose: 125 mcg Lorazepam (Ativan) 0.5 mg PO BID [facility] Last Admin: 04/09/18 08:57 Dose: 0.5 mg Metoprolol Tartrate (Lopressor) 25 mg PO BID [facility] Last Admin: 04/09/18 08:57 Dose: 25 mg Morphine Sulfate (Morphine) 2 mg SLOW IVP Q4H PRN PRN Reason: Chest Pain/BP Elevations Nitroglycerin (Nitrostat) 0.4 mg PO Q5MIN PRN PRN Reason: Chest Pain Ondansetron HCl (Zofran Odt) 4 mg PO Q6H PRN PRN Reason: Nausea/Vomiting Ondansetron HCl (Zofran) 4 mg IVP Q6H PRN PRN Reason: Nausea/Vomiting Potassium Chloride (Klor-Con 10) 10 meq PO BID-[facility] Last Admin: 04/09/18 08:57 Dose: 10 meq Potassium Chloride (K-Dur) 40 meq PO QAM-[facility] Last Admin: 04/09/18 08:57 Dose: 40 meq Senna (Senokot) 2 tab PO HSPRN PRN PRN Reason: Constipation Sertraline HCl (Zoloft) 50 mg PO QAM [facility] Last Admin: 04/09/18 08:57 Dose: 50 mg Sodium Chloride (Flush - Normal Saline) 10 ml IVF PRN PRN PRN Reason: Saline Flush Tramadol HCl (Ultram) 50 mg PO QID PRN PRN Reason: Moderate Pain (4-6) Last Admin: 04/08/18 11:10 Dose: 50 mg
--- NOTE | 2018-04-09 12:51 | MRI ---
BRAIN MRI WITH AND WITHOUT CONTRAST: HISTORY: Abnormal CT with areas of hyperdensity and cytotoxic/vasogenic edema. Evaluate for stroke versus hem orrhagic metastases. COMPARISON: None. TECHNIQUE: Brain MRI is performed with and without intravenous Gadolinium administration. Multisequential, mult iplanar imaging is performed. FINDINGS: There is evidence of hemorrhage in the area of abnormal attenuation noted on previous CT. There is a ssociated T2 and FLAIR white matter hyperintensity due to edema. There is no evidence of enhancement to suggest an underlying neoplastic process. There is evidence of heterogeneous restricted diffusio n, compatible with infarct. The remainder of the right cerebrum and the left cerebrum have appropriate signal intensity. Small f oci of cortical restricted diffusion in the right frontal lobe are noted. No restricted diffusion in the cerebellum or left cerebrum. No pathologic enhancement of the brain parenchyma. There is evidence of edema and sulcal effacement involving the right temporal lobe and parietal lobe. Findings are compatible with an MCA distribution infarction. Adequate aeration of the sinuses and mastoid air cells. IMPRESSION: Right middle cerebral artery distribution infarction with areas of hemorrhagic conversion. POS: [facility]
[2018-04-09] MEDS: Furosemide 20 MG/2 ML VIAL SLOW IVP SCH (14:36)
[2018-04-09] MEDS: traMADol HCl 50 MG TAB PO PRN (16:07)
[2018-04-09] MEDS ORDERED: Oxybutynin 5 MG TAB PO SCH (17:45)
[2018-04-09] MEDS ORDERED: Tamsulosin HCl 0.4 MG CAP PO SCH (17:45)
[2018-04-09] MEDS: Phenazopyridine HCl 97.5 MG TABLET PO SCH (18:49)
[2018-04-09] MEDS: Atorvastatin Calcium 20 MG TAB PO SCH (21:24)
[2018-04-10] MEDS: Furosemide 20 MG/2 ML VIAL SLOW IVP SCH (05:47)
[2018-04-10] MEDS: Levothyroxine Sodium 125 MCG TAB PO SCH (05:47)
[2018-04-10 05:52] LABS: Anion Gap 13 mmol/L (10-20); BUN (Urea Nitrogen) 30 mg/dL (8.4-25.7); Calc. Creatinine Clearance 61 mL/min (70-130); Calcium 9.7 mg/dL (7.8-10.44); Carbon Dioxide 30 mmol/L (23-31); Chloride 98 mmol/L (98-107); Estimated GFR-MDRD 58; Glucose 102 mg/dL (83-110); Potassium 4.2 mmol/L (3.5-5.1); Sodium 137 mmol/L (136-145)
[2018-04-10] MEDS ORDERED: Tamsulosin HCl 0.4 MG CAP PO SCH (09:00)
[2018-04-10] MEDS ORDERED: Oxybutynin 5 MG TAB PO SCH (09:00)
[2018-04-10 09:23] VITALS: BMI 26.0
[2018-04-10] MEDS: Famotidine 20 MG TAB PO SCH (10:48)
[2018-04-10] MEDS: Docusate 100 MG CAP PO SCH (10:50)
[2018-04-10] MEDS: Phenazopyridine HCl 97.5 MG TABLET PO SCH ×2 (10:52→12:50)
[2018-04-10] MEDS: Potassium Chloride 10 MEQ TAB PO SCH (10:59)
[2018-04-10] MEDS: Metoprolol Tartrate 25 MG TAB PO SCH (10:59)
[2018-04-10] MEDS: Potassium Chloride 20 MEQ TAB PO SCH (10:59)
[2018-04-10] MEDS: Lorazepam 0.5 MG TAB PO SCH (11:07)
--- NOTE | 2018-04-10 15:34 | PDOC.PN ---
- Subjective Encounter Start Date: 04/10/18 Encounter Start Time: 08:45 Subjective: awake, eating breakfast by self -: no new weakness, feels good -: no chest pain or palpitations - Objective Resuscitation Status: Resuscitation Status FULL:Full Resuscitation MAR Reviewed: Yes Vital Signs & Weight: Vital Signs (12 hours) Temp Pulse Pulse Pulse Resp BP BP 04/10/18 11:21 97.8 F 98 16 04/10/18 09:14 72 77 140/78 143/75 H 04/10/18 08:05 97.8 F 98 16 04/10/18 07:35 97.3 F L 84 16 04/10/18 04:00 97.9 F 84 16 BP Pulse Ox 04/10/18 11:21 153/80 H 98 04/10/18 09:14 04/10/18 08:05 94 L 04/10/18 07:35 145/83 H 94 L 04/10/18 04:00 131/79 96 Weight Admit Weight 235 lb Weight 203 lb Most Recent Monitor Data Heart Rate from ECG 99 NIBP 157/75 NIBP BP-Mean 106 Respiration from ECG 18 SpO2 100 I&O: 04/09/18 04/10/18 04/11/18 06:59 06:59 06:59 Intake Total 2054 550 Output Total 250 600 Balance 1804 -50 Result Diagrams: 04/08/18 04:29 04/10/18 04:54 Phys Exam - Physical Examination HEENT: PERRLA, moist MMs Neck: no JVD, supple Respiratory: no wheezing, no rales Cardiovascular: RRR, no significant murmur Gastrointestinal: soft, non-tender, positive bowel sounds Musculoskeletal: no edema, pulses present Neurological: non-focal left hemiparesis Psychiatric: A&O x 3 Dx/Plan (1) Acute CVA (cerebrovascular accident) Code(s): I63.9 - CEREBRAL INFARCTION, UNSPECIFIED Status: Acute Comment: right mca infarct with hemorrhagic conversion, dysarthria, left hemiparesis improving, facial palsy (2) Cerebral hemorrhage Code(s): I61.9 - NONTRAUMATIC INTRACEREBRAL HEMORRHAGE, UNSPECIFIED Status: Acute Comment: sec to above with vasogenic edema (3) Afib Code(s): I48.91 - UNSPECIFIED ATRIAL FIBRILLATION Status: Chronic Qualifiers: Atrial fibrillation type: chronic Qualified Code(s): I48.2 - Chronic atrial fibrillation (4) CLL (chronic lymphocytic leukemia) Code(s): C91.90 - LYMPHOID LEUKEMIA, UNSPECIFIED NOT HAVING ACHIEVED REMISSION Status: Chronic (5) HTN (hypertension) Code(s): I10 - ESSENTIAL (PRIMARY) HYPERTENSION Status: Chronic Qualifiers: Hypertension type: essential hypertension Qualified Code(s): I10 - Essential (primary) hypertension (6) Dyslipidemia Code(s): E78.5 - HYPERLIPIDEMIA, UNSPECIFIED Status: Chronic (7) Hypothyroidism Code(s): E03.9 - HYPOTHYROIDISM, UNSPECIFIED Status: Chronic Qualifiers: Hypothyroidism type: unspecified Qualified Code(s): E03.9 - Hypothyroidism , unspecified (8) Demand ischemia of myocardium Code(s): I24.8 - OTHER FORMS OF ACUTE ISCHEMIC HEART DISEASE Status: Acute - Plan hemostable -: had 2 sec pauses overnight, likely due to labetalol prn, norvasc and lopres -: dc all av akila blockers -: dc pt to [facility], d/w daughter at bedside -: to f/u with and Sharita * . Review of Systems - Medications/Allergies Allergies/Adverse Reactions: Allergies Allergy/AdvReac Type Severity Reaction Status Date / Time Penicillins Allergy Anaphylaxis Verified 09/06/16 15:33 Medications: Current Medications Acetaminophen (Tylenol) 650 mg PO Q4H PRN PRN Reason: Headache/Fever or Pain Last Admin: 04/08/18 14:38 Dose: 650 mg Atorvastatin Calcium (Lipitor) 20 mg PO HS [facility] Last Admin: 04/09/18 21:24 Dose: 20 mg Calcium Carbonate (Tums) 1,000 mg PO Q4H PRN PRN Reason: Heartburn or Indigestion Docusate Sodium (Colace) 100 mg PO BID [facility] Last Admin: 04/10/18 10:50 Dose: Not Given Famotidine (Pepcid) 20 mg PO DAILY [facility] Last Admin: 04/10/18 10:48 Dose: 20 mg Levofloxacin (Levaquin) 500 mg PO 0600 [facility] Last Admin: 04/10/18 05:47 Dose: 500 mg Levothyroxine Sodium (Synthroid) 125 mcg PO 0600 [facility] Last Admin: 04/10/18 05:47 Dose: 125 mcg Lisinopril (Zestril) 5 mg PO BID [facility] Lorazepam (Ativan) 0.5 mg PO BID [facility] Last Admin: 04/10/18 11:07 Dose: Not Given Morphine Sulfate (Morphine) 2 mg SLOW IVP Q4H PRN PRN Reason: Chest Pain/BP Elevations Last Admin: 04/09/18 18:03 Dose: 2 mg Nitroglycerin (Nitrostat) 0.4 mg PO Q5MIN PRN PRN Reason: Chest Pain Ondansetron HCl (Zofran Odt) 4 mg PO Q6H PRN PRN Reason: Nausea/Vomiting Ondansetron HCl (Zofran) 4 mg IVP Q6H PRN PRN Reason: Nausea/Vomiting Oxybutynin Chloride (Ditropan) 5 mg PO DAILY [facility] Last Admin: 04/10/18 10:48 Dose: 5 mg Phenazopyridine HCl (Azo Standard) 97.5 mg PO PC [facility] Last Admin: 04/10/18 12:50 Dose: 97.5 mg Senna (Senokot) 2 tab PO HSPRN PRN PRN Reason: Constipation Sertraline HCl (Zoloft) 50 mg PO QAM [facility] Last Admin: 04/10/18 10:48 Dose: 50 mg Sodium Chloride (Flush - Normal Saline) 10 ml IVF PRN PRN PRN Reason: Saline Flush Last Admin: 04/10/18 10:53 Dose: 10 ml Tamsulosin HCl (Flomax) 0.4 mg PO DAILY [facility] Last Admin: 04/10/18 10:48 Dose: 0.4 mg Tramadol HCl (Ultram) 50 mg PO QID PRN PRN Reason: Moderate Pain (4-6) Last Admin: 04/09/18 16:07 Dose: 50 mg
[2018-04-10 15:49] VITALS: BP 109/75; TEMP 97.5
[2018-04-10] MEDS ORDERED: Lisinopril 5 MG TAB PO SCH (21:00)
--- NOTE | 2018-04-11 04:35 | DIS ---
DATE OF ADMISSION: 04/06/2018 DATE OF DISCHARGE: 04/10/2018 DISCHARGE DISPOSITION: To [facility]. 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 SECONDARY DISCHARGE DIAGNOSES: Chronic atrial fibrillation; chronic lymphatic leukemia; hypertension; dyslipidemia; hypothyroidism; demand ischemia due to cerebrovascular accident, stable. PROCEDURES DONE DURING HOSPITALIZATION: CT brain done on the day of admission showed right middle cerebral artery territory infarct with hemorrhagic component , a focus of hemorrhage was measuring slightly greater than 1 cm. Chest x-ray done showed mild cardiomegaly. The patient has had serial CAT scans done, which have not shown any further increase in the size of the hemorrhage. MRI brain done on 04/09/2018 confirmed the right middle cerebral artery distribution infarct with areas of hemorrhagic conversion. No pathologic enhancement of the brain parenchyma was seen. There was no evidence of enhancement to suggest an underlying neoplastic process. Echo with 2D Doppler showed EF of 50% to 55%, mild concentric LVH, bundle branch block was seen, paradoxical septal motion due to bundle branch block, severe elevated pulmonary artery pressure with PA systolic pressure measuring around 66 mmHg. Urine culture grew gram negative shyla less than 10,000 colony forming units per mL. Blood cultures x2 no growth. Had an initial white count of 26 with discharge numbers of 13 due to CLL, H&H 13 and 41, platelet count 152, MCV is 89. INR 1.2 on the day of admission. Troponin I was indeterminate, peaking up to 0.07. CK-MB 8.1, CK levels 898, albumin is 4.3, BUN 20, creatinine 1.1 on the day of admission. Total cholesterol 118, triglycerides 98, LDL 57, HDL 41. INPATIENT CONSULTS: Dr. Francisca Kathleen for Neurology, Dr. Truong for Neurosurgery, Dr. Prather for Cardiology. DISCHARGE MEDICATIONS: Norvasc 10 mg p.o. daily, Lipitor 20 mg p.o. q.a.m., Colace 100 mg twice daily, Pepcid 20 mg daily, Levaquin 500 mg p.o. daily for another 5 days for urinary tract infection for which the patient was symptomatic , levothyroxine 125 mcg p.o. daily, lisinopril 5 mg twice daily, lorazepam 0.5 mg twice daily, oxybutynin 5 mg daily for another 3 days for bladder spasms, phenazopyridine 97.5 mg p.o. daily for another 2 days for bladder spasms, sertraline 100 mg p.o. q.a.m., Flomax 0.4 mg p.o. daily, Ultram 50 mg 4 times daily p.r.n. ALLERGIES: PENICILLIN. DISCHARGE PLAN: The patient to follow up with Dr. Chauhan, his microstrategy bi developer, in 2 weeks and primary care physician in 1 week. He also needs follow up with Dr. Francisca Kathleen, Neurology in 2-4 weeks. BRIEF COURSE DURING HOSPITALIZATION: The patient initially was brought to emergency room for left-sided weakness. He had slurred speech and facial droop along with this. The initial CT on arrival done showed right MCA territory infarct with hemorrhagic component. The patient was admitted to ICU and has had consultation with Dr. Truong for Neurosurgery. His EKG showed atrial fibrillation, which was rate controlled with left bundle branch block. The patient was on Eliquis prior to arrival. This was held all through his hospitalization. He has had serial CAT scans done, which have shown stable right MCA infarct with no increase in the hemorrhage size. The patient has a known history of urinary retention and does straight catheterization prior to arrival at home. In view of this, he was on a Palm catheter, which has been removed. His atrial fibrillation is rate controlled on current medications. The patient had two-second pauses on the telemetry after he was downgraded due to p.r.n. medications including labetalol IV, Lopressor oral and in view of this , his Lopressor has been completely discontinued. His systolic blood pressure has remained stable around 140s and is currently on Norvasc and lisinopril. Please note, no anticoagulants or antiplatelet agents have been given to him in view of his hemorrhagic conversion from right MCA infarct. His left lower extremity strength is improving, it is around 3-4/5 and left upper extremity hand order runner is 5/5, but he is unable to lift his left upper extremity likely due to shoulder issue. His facial palsy and dysarthria is also improving. He is currently on mechanical soft diet and is improving with his dysarthria as well. He needs ongoing speech and physical therapy evaluations at the [facility]. I have given complete updates to patient's daughter who is also a cupola melting supervisor at bedside. A total of 35 minutes was spent on discharge plan. Please see a [id number] documentation on [facility] for the day of discharge. CLARK
== END 2018-04-10 18:17 | DRG 64 ==
LOC: ERS 18:01 → CCU 20:00 → 2SE 04-07 15:54
PROVIDERS: ADMIT Internal Medicine; ATTEND Internal Medicine
DX: I63.9 Cerebral infarction, unspecified (principal); G93.6 Cerebral edema; I61.9 Nontraumatic intracerebral hemorrhage, unspecified; E87.2 Acidosis; I24.8 Other forms of acute ischemic heart disease; G81.94 Hemiplegia, unspecified affecting left nondominant side; C91.90 Lymphoid leukemia, unspecified not having achieved remission; Z79.01 Long term (current) use of anticoagulants; I48.0 Paroxysmal atrial fibrillation; R29.810 Facial weakness; R47.81 Slurred speech; I44.7 Left bundle-branch block, unspecified; I25.10 Atherosclerotic heart disease of native coronary artery without angina pectoris; E78.5 Hyperlipidemia, unspecified; F32.9 Major depressive disorder, single episode, unspecified; F41.9 Anxiety disorder, unspecified; R33.9 Retention of urine, unspecified; K57.90 Diverticulosis of intestine, part unspecified, without perforation or abscess without bleeding; Z90.49 Acquired absence of other specified parts of digestive tract; Z96.619 Presence of unspecified artificial shoulder joint; E03.9 Hypothyroidism, unspecified; Z88.0 Allergy status to penicillin; E86.0 Dehydration; I12.9 Hypertensive chronic kidney disease with stage 1 through stage 4 chronic kidney disease, or unspecified chronic kidney disease; N18.2 Chronic kidney disease, stage 2 (mild)
CPT/HCPCS: 36415; 36416; 51701; 70450; 70553; 71045; 80048; 80053; 80061; 81003; 81015; 82550; 82553; 83605; 83735; 84100; 84484; 85025; 85610; 85730; 87040; 87086; 93005; 93306; 94760; 96361; 96365; G8978-GP-CM; G8979-GP-CK; G8987-GO-CM; G8988-GO-CK; G8996-GN-CK; G8997-GN-CI; J1940; J2270; J3370

== ENCOUNTER 2018-04-26 21:03 | Inpatient (IN) | payer MEDICARE, BC ==
[2018-04-26 23:34] LABS: Band 19 % (5-11); Hemoglobin 15.3 g/dL (14.0-18.0); Lymphocytes 28 % (21-51); MDiff Complete? YES; Mean Corpuscular HGB CONC 33.1 g/dL (32.0-36.0); Mean Corpuscular Hemoglobin 29.7 pg (27.0-31.0); Mean Corpuscular Volume 89.7 fl (80.0-94.0); Mean Platelet Volume 6.7 fL (7.4-10.4); Monocytes 2 % (0-10); Neutrophil 51 % (42-75); PLT Morphology Comment Appears Adequate; Platelet Count 179 thou/uL (130-400); RBC Distribution Width 14.1 % (11.5-14.5); Red Blood Cell (RBC) Count 5.17 mill/uL (4.70-6.10); White Blood Cell (WBC) Count 16.9 thou/uL (4.8-10.8)
--- NOTE | 2018-04-26 23:40 | ULT ---
RIGHT UPPER QUADRANT ABDOMINAL ULTRASOUND: 04/26/18 HISTORY: Epigastric and right upper quadrant abdominal pain with nausea and vomiting. COMPARISON: CT abdomen/pelvis 04/26/18. TECHNIQUE: Multiplanar lakhani scale and color doppler images were obtained in a right upper quadrant abdominal ult rasound. FINDINGS: The liver is normal in echogenicity without focal lesions or intrahepatic ductal dilatation. The gall bladder is distended and contains sludge. No shadowing stones are seen in the gallbladder. There is n o gallbladder wall thickening but a small amount of pericholecystic fluid. The common bile duct canno t be visualized. The pancreas was obscured by bowel gas. The right kidney demonstrates normal cortical echogenicity wi thout hydronephrosis and measures 9.7 cm in length. There is a nonshadowing echogenic focus in the ri ght kidney which likely does not represent a calcification as no calcification is seen in this locati on on CT. IMPRESSION: Distended gallbladder with pericholecystic fluid may be secondary to acalculous cholecystitis. POS: NILESH
[2018-04-27] MEDS ORDERED: Sodium Chloride 0.9% 1,000 ML IV SCH (02:05)
[2018-04-27] MEDS ORDERED: Morphine 4 MG/ML VIAL IV PRN (02:06)
[2018-04-27 02:25] VITALS: BMI 29.5
--- NOTE | 2018-04-27 02:51 | PDOC.PN ---
- Subjective Encounter Start Date: 04/27/18 Encounter Start Time: 02:49 Pt seen for management of medical comorbidities, including hypertension. Denies chest pain, shortness of breath, fevers or chills. c/o RUQ pain. - Objective MAR Reviewed: Yes Vital Signs & Weight: Vital Signs (12 hours) Temp Pulse Resp BP Pulse Ox 04/27/18 01:35 97.9 F 93 18 137/81 96 Weight Weight 218 lb Result Diagrams: 04/26/18 23:00 Additional Labs: Labs reviewed by me Phys Exam - Physical Examination Constitutional: NAD HEENT: moist MMs Neck: supple Respiratory: clear to auscultation bilateral Cardiovascular: RRR Gastrointestinal: soft, positive bowel sounds RUQ tenderness L sided weakness Psychiatric: normal affect Dx/Plan (1) HTN (hypertension) Code(s): I10 - ESSENTIAL (PRIMARY) HYPERTENSION Status: Chronic Qualifiers: Hypertension type: essential hypertension Qualified Code(s): I10 - Essential (primary) hypertension Comment: Start PRN IV hydralazine. Continue metoprolol during periop period (2) Afib Code(s): I48.91 - UNSPECIFIED ATRIAL FIBRILLATION Status: Chronic Qualifiers: Atrial fibrillation type: chronic Qualified Code(s): I48.2 - Chronic atrial fibrillation Comment: Pt not on anticoagulation due to hemorrhagic stroke (3) Dyslipidemia Code(s): E78.5 - HYPERLIPIDEMIA, UNSPECIFIED Status: Chronic Comment: continue statin when pt is able to take oral medications (4) Hypothyroidism Code(s): E03.9 - HYPOTHYROIDISM, UNSPECIFIED Status: Chronic Qualifiers: Hypothyroidism type: unspecified Qualified Code(s): E03.9 - Hypothyroidism , unspecified Comment: continue synthroid when pt is able to take oral medications - Plan * . Discussed with pt re: code status. He wishes to be DNR Review of Systems - Medications/Allergies Allergies/Adverse Reactions: Allergies Allergy/AdvReac Type Severity Reaction Status Date / Time Penicillins Allergy Anaphylaxis Verified 09/06/16 15:33 Medications: Current Medications Sodium Chloride (Normal Saline 0.9%) 1,000 mls @ 75 mls/hr IV .[id number] MAYRA Stop: 04/27/18 12:20 Levofloxacin 500 mg/ Device 100 mls @ 100 mls/hr IVPB Q24HR MAYAR Stop: 04/27/18 12:20 Morphine Sulfate (Morphine) 2 mg IV Q4H PRN PRN Reason: Pain Stop: 04/27/18 12:20 Sodium Chloride (Flush - Normal Saline) 10 ml IVF Q12HR MAYRA Sodium Chloride (Flush - Normal Saline) 10 ml IVF PRN PRN PRN Reason: Saline Flush
[2018-04-27] MEDS ORDERED: hydrALAZINE 20 MG/ML VIAL SLOW IVP PRN (04:15)
[2018-04-27] MEDS: Metoprolol Tartrate 25 MG TAB PO SCH ×3 (06:12→20:47)
[2018-04-27 10:12] LABS: ALT (SGPT) 19 U/L (8-55); AST (SGOT) 26 U/L (5-34); Alkaline Phosphatase 91 U/L (40-150); Bilirubin, Direct 0.6 mg/dL (0.1-0.3); Bilirubin, Total 1.1 mg/dL (0.2-1.2); Protein, Total 5.2 g/dL (5.8-8.1)
[2018-04-27] MEDS ORDERED: Ketorolac Tromethamine 30 MG/ML VIAL IVP PRN (10:31)
--- NOTE | 2018-04-27 10:44 | HP ---
HISTORY OF PRESENT ILLNESS: Russ Flores is an 88-year-old male patient, DNR, who presents with acute cholecystitis. He has been to [place] recovering from a right hemispheric stroke with re sidual left hemiplegia. He is nonambulatory, but physical therapy has been working with him. He had developed abdominal pain, right upper quadrant epigastrium thought initially to constipation, treate d for such and after multiple bowel movements he still had persistent pain. He has an elevated bilir ubin at 1.9. Ultrasound reveals gallbladder sludge with pericholecystic fluid and CAT scan reveals i nflammatory changes. He has persistent tenderness. His white count is 16, hemoglobin 15. He has be en admitted by hospitalist service and I have been consulted from the emergency room last night. The patient has history of atrial fibrillation, has been on anticoagulation in the past, but this was discontinued due to a hemorrhagic stroke suffered and hospitalized 04/06/2018 through 04/10/2018 and transferred to [facility]. The patient's speech has returned to normal. His anticoag ulation has been held due to the stroke. ALLERGIES: PENICILLIN. TOBACCO: Never. ALCOHOL: None. MEDICATIONS: Phenazopyridine 97.5 mg p.c., Ditropan 5 mg daily, calcium with iron and vitamins daily , cholecalciferol 2000 units daily, atorvastatin 20 mg p.m., Norvasc 5 mg daily, lisinopril 5 mg b.i. d., lorazepam 0.5 mg b.i.d., sertraline 50 mg a.m., Colace 100 mg b.i.d., Flomax 0.4 mg daily, levoth yroxine 125 mcg daily, Senokot 2 tabs p.m., Famotidine 20 mg daily, Tylenol p.r.n., Levaquin 500 mg p .o. daily, metoprolol 25 mg b.i.d., calcium 1 tab p.o. daily. PAST SURGICAL HISTORY: Right shoulder replacement, cataract surgery, thyroid surgery. He has inject ions in his knees due to degenerative arthritis. He has had a right colectomy for a cecal polyp. He had a colonoscopy in 2016 that was normal. PAST MEDICAL HISTORY: Atrial fibrillation, no history of coronary disease. Echocardiogram normal wi th minimal valvular disease evaluated earlier this year. He is followed by Dr. Chauhan. No history of chest pain. The patient is . His last year. REVIEW OF SYSTEMS: Ten point noncontributory. The patient does have some urinary problems since his stroke. He has to in and out cath himself abou t every two or three days, but has been urinating in between. He has been started on Flomax, which h as helped. PHYSICAL EXAMINATION: VITAL SIGNS: 6 feet tall, 218 pounds, 29 BMI, 97.8, 82, 16, 106/64. HEENT: Unremarkable. LUNGS: Clear to auscultation. CARDIAC: Regular rate and rhythm without murmur or gallop. ABDOMEN: Soft, tenderness in right upper quadrant with guarding and rebound, positive Smith's sign. EXTREMITIES: Unremarkable except for left hemiplegia. He is able to raise his left arm, left leg. He has some strength, but he is very weak. LABORATORY: White count 16, hemoglobin 15, bilirubin 1.1 this morning, 1.9 yesterday, direct bilirub in 0.6. ASSESSMENT AND PLAN: 1. Acute cholecystitis and cholelithiasis. He is on Levaquin IV. His renal function is normal. We will change his Levaquin to 500 mg IV daily. Continue his home medications, we will begin Toradol O firmev IV to avoid narcotics. 2. Recent stroke. We will order physical therapy. I expect him to be able to be discharged home ba to [facility], tomorrow, after laparoscopic cholecystectomy today. 3. Risk of infection, bleeding, visceral and biliary injury explained and he consents. 4. History of a hemorrhagic stroke. The patient is slowly recovering. His speech has returned to n ormal. He is having some urinary difficulty, controlled with Flomax. We will monitor this on this h ospitalization.
[2018-04-27 10:45] LABS: Anion Gap 15 mmol/L (10-20); BUN (Urea Nitrogen) 25 mg/dL (8.4-25.7); Calc. Creatinine Clearance 76 mL/min (70-130); Calcium 8.9 mg/dL (7.8-10.44); Carbon Dioxide 19 mmol/L (23-31); Chloride 110 mmol/L (98-107); Estimated GFR-MDRD 74; Glucose 100 mg/dL (83-110); Sodium 140 mmol/L (136-145)
[2018-04-27] MEDS: Acetaminophen 1,000 MG in Premix Bag 1 BAG IVPB SCH ×2 (11:37→17:06)
[2018-04-27] MEDS: Phenazopyridine HCl 97.5 MG TABLET PO SCH ×2 (14:40→17:06)
[2018-04-27] MEDS: Lisinopril 5 MG TAB PO SCH (20:47)
[2018-04-28] MEDS: Acetaminophen 1,000 MG in Premix Bag 1 BAG IVPB SCH ×3 (00:40→11:30)
[2018-04-28] MEDS: Metoprolol Tartrate 25 MG TAB PO SCH ×3 (05:41→21:58)
[2018-04-28] MEDS ORDERED: Fentanyl 100 MCG/2 ML VIAL ONE ×2 (06:41→08:59)
[2018-04-28] MEDS ORDERED: Iothalamate Meglumine 60% 50 ML VIAL FS ONE (06:45)
[2018-04-28] MEDS ORDERED: Bupivacaine HCl 0.5%/Epinephrine 1:200,000/PF 30 ml Vial ONE (06:45)
[2018-04-28] MEDS ORDERED: Levofloxacin 500 mg/D5W 100 ml Premix Bag ONE (06:54)
[2018-04-28] MEDS ORDERED: Morphine Sulfate 2 MG/ML SYRINGE SLOW IVP PRN (08:44)
[2018-04-28] MEDS: Amlodipine 10 MG TAB PO SCH (08:44)
[2018-04-28] MEDS ORDERED: Promethazine HCl 25 MG/ML VIAL SLOW IVP PRN (08:44)
[2018-04-28] MEDS ORDERED: Ondansetron HCl/PF 4 MG/2 ML Vial IVP PRN (08:44)
[2018-04-28] MEDS: Lisinopril 5 MG TAB PO SCH ×2 (08:44→21:58)
[2018-04-28] MEDS ORDERED: Promethazine HCl 25 MG/ML VIAL IM PRN (08:44)
[2018-04-28] MEDS: Phenazopyridine HCl 97.5 MG TABLET PO SCH ×3 (08:45→17:36)
[2018-04-28] MEDS: Tamsulosin HCl 0.4 MG CAP PO SCH (08:45)
[2018-04-28] MEDS: Oxybutynin 5 MG TAB PO SCH (08:45)
--- NOTE | 2018-04-28 08:52 | OP ---
DATE OF PROCEDURE: 04/28/2018 PREOPERATIVE DIAGNOSES: Acute cholecystitis, cholelithiasis. POSTOPERATIVE DIAGNOSES: Acute gangrenous cholecystitis, cholelithiasis. PROCEDURE: Laparoscopic video cholecystectomy, negative intraoperative cholangiograms using fluorosc opy. #19 Gold JOSEPHINE drain. FINDINGS: Acute cholecystitis with gangrenous gallbladder. SURGEON: Dr. Gurdeep Woods ANESTHESIA: General. Local 0.5% Marcaine with epinephrine, 30 mL. PROCEDURE IN DETAIL: The patient was taken to the operating room where under general anesthesia, abd omen was prepared with ChloraPrep, draped in routine fashion. Local anesthetic infiltrated into the skin and subcutaneous tissue about all port sites. Infraumbilical incision made and pneumoperitoneum to 15 mmHg obtained with Veress needle placing with a 5 port and video laparoscope inserted. The ga llbladder was acutely inflamed with gangrene. Liver appeared to be normal. Fundus cauterized, opene d, gallbladder contents evacuated with suction to enable grasping of the fundus reflecting cephalad. Acute inflammatory adhesions of small bowel, omentum and duodenum taken down carefully. Infundibulu m grasped and reflected laterally. Cystic artery and duct dissected free. Critical view obtained. Cystic artery double clipped proximally, single clipped distally. Cystic duct single clipped on the gallbladder side, opening made in the cystic duct, cholangiocath inserted and cholangiogram was obtai nancy using fluoroscopy revealing free flow of contrast into the duodenum without filling defects in th e common hepatic, common bile, left or right hepatic ducts. Cholangiocath removed. Cystic duct stum p doubly clipped. Cystic artery and duct divided. The gallbladder dissected free from inflammatory edematous adhesions and attachments using cautery and good hemostasis obtained with the cautery, the gallbladder and contents placed in Endobag and removed. Subxiphoid fascia was closed with figure-of- eight suture of 0 Vicryl. A #19 Gold JOSEPHINE drain placed in the subhepatic space and brought out through the lateral subcostal port secured with 3-0 nylon. Irrigant and pneumoperitoneum evacuated after en suring good hemostasis and all instruments removed and all skin incisions approximated with interrupt ed subdermal 4-0 Monocryl and DermaGlue applied.
[2018-04-28] MEDS ORDERED: Ibuprofen 600 MG TAB PO PRN (09:08)
[2018-04-28] MEDS ORDERED: Acetaminophen 500 MG TAB PO PRN (09:08)
[2018-04-28] MEDS ORDERED: traMADol HCl 50 MG TAB PO PRN ×2 (09:09)
--- NOTE | 2018-04-28 10:16 | RAD ---
INTRAOPERATIVE CHOLANGIOGRAM: EXPOSURE: 0.608 mGy 0.155 Gy per cm2. FINDINGS: A single fluoroscopic view demonstrates opacification of the cystic duct remnant. Contrast opacifies a normal appearing intrahepatic and extrahepatic biliary system. Contrast is noted in the duodenum. IMPRESSION: Intraoperative fluoroscopy as above. POS: NILESH
[2018-04-28] MEDS ORDERED: Morphine 4 MG/ML VIAL SLOW IVP PRN (12:12)
[2018-04-28] MEDS ORDERED: ePHEDrine/0.9% NaCl/PF SYRINGE 50 mg/10 ml ONE (13:45)
[2018-04-28] MEDS ORDERED: PHENYLEPHRINE-NS 100 MCG/ML 10 ML SYRINGE ONE (13:45)
[2018-04-28] MEDS ORDERED: PROPOFOL 200 MG/20 ML VIAL ONE (13:45)
[2018-04-28] MEDS ORDERED: Glycopyrrolate 0.2 MG/ML 5 ML SYRINGE ONE ×2 (13:45)
[2018-04-28] MEDS ORDERED: Lidocaine 1% PF 5 ML VIAL ONE (13:45)
[2018-04-28] MEDS ORDERED: Sodium Chloride 0.9% 500 ML IVPB SCH (18:15)
--- NOTE | 2018-04-28 20:54 | PDOC.PN ---
- Subjective Encounter Start Date: 04/28/18 Encounter Start Time: 12:30 Subjective: pt up in bed has some pain to his surgical sites - Objective Resuscitation Status: Resuscitation Status DNR:Do Not Resuscitate Vital Signs & Weight: Vital Signs (12 hours) Temp Pulse Resp BP Pulse Ox 04/28/18 20:00 98.2 F 77 16 129/77 93 L 04/28/18 15:50 98.3 F 76 16 117/76 96 04/28/18 12:30 73 16 102/66 94 L 04/28/18 09:35 97.4 F L 61 16 94 L 04/28/18 09:25 97.4 F L 61 16 104/65 94 L Weight Admit Weight 218 lb Weight 218 lb I&O: 04/27/18 04/28/18 04/29/18 06:59 06:59 06:59 Intake Total 2845 1487 Output Total 170 Balance 2845 1317 Result Diagrams: 04/26/18 23:00 04/27/18 09:36 Phys Exam - Physical Examination HEENT: PERRLA, moist MMs, sclera anicteric, TM's clear, oral pharynx no lesions , 2+ tonsils Neck: no nodes, no JVD, supple, full ROM Respiratory: no wheezing, no rales, no rhonchi, wheezing present, clear to auscultation bilateral Cardiovascular: RRR, no significant murmur, no rub, gallop, irregular Gastrointestinal: soft x5 laproscopic inscisions with JOSEPHINE Musculoskeletal: no edema, pulses present, edema present decrease movement to left upper and lower ext Dx/Plan - Plan * R MCA infract with hemorrhagic conversion * s/p cholecystectomy gangernous gall bladder). * afib * htn * hypothyroidism * * plan: Per last discharge surgery no AC no antiplatelets. will continue statin. vitals stable. will add flagyl in additional to levaquin given his gangernous gallbladder and advance age. Afib rate controlled. will check labs in am. Review of Systems - Review of Systems Eyes: negative: Pain, Vision Change, Conjunctivae Inflammation, Eyelid Inflammation, Redness, Other ENT: negative: Ear Pain, Ear Discharge, Nose Pain, Nose Discharge, Nose Congestion, Mouth Pain, Mouth Swelling, Throat Pain, Throat Swelling, Other Respiratory: negative: Cough, Dry, Shortness of Breath, Hemoptysis, SOB with Excertion, Pleuritic Pain, Sputum, Wheezing Cardiovascular: negative: chest pain, palpitations, orthopnea, paroxysmal nocturnal dyspnea, edema, light headedness, other Gastrointestinal: Abdominal Pain Genitourinary: negative: Dysuria, Frequency, Incontinence, Hematuria, Retention , Other Musculoskeletal: negative: Neck Pain, Shoulder Pain, Arm Pain, Back Pain, Hand Pain, Leg Pain, Foot Pain, Other - Medications/Allergies Allergies/Adverse Reactions: Allergies Allergy/AdvReac Type Severity Reaction Status Date / Time Penicillins Allergy Anaphylaxis Verified 09/06/16 15:33 Medications: Current Medications Acetaminophen (Tylenol) 1,000 mg PO Q6H PRN PRN Reason: Moderate to Severe Pain (6-10) Amlodipine Besylate (Norvasc) 5 mg PO DAILY [facility] Last Admin: 04/28/18 08:44 Dose: Not Given Hydralazine HCl (Apresoline) 10 mg SLOW IVP Q6H PRN PRN Reason: SBP Greater Than 170 Levofloxacin 500 mg/ Device 100 mls @ 100 mls/hr IVPB 0600 [facility] Stop: 04/29/18 12:00 Sodium Chloride (Normal Saline 0.9%) 1,000 mls @ 125 mls/hr IV .Q8H [facility] Metronidazole 500 mg/ Device 100 mls @ 100 mls/hr IVPB Q8HR [facility] Ibuprofen (Motrin) 600 mg PO Q6H PRN PRN Reason: Pain Last Admin: 04/28/18 09:53 Dose: 600 mg Ketorolac Tromethamine (Toradol) 15 mg IVP Q6H PRN PRN Reason: Pain Stop: 05/02/18 10:32 Levofloxacin (Levaquin) 500 mg PO 0600 [facility] Stop: 05/04/18 16:00 Lisinopril (Zestril) 5 mg PO BID [facility] Last Admin: 04/28/18 08:44 Dose: Not Given Metoprolol Tartrate (Lopressor) 25 mg PO BID [facility] Last Admin: 04/28/18 08:44 Dose: Not Given Morphine Sulfate (Morphine) 2 mg SLOW IVP Q4H PRN PRN Reason: PAIN 1ST LINE Morphine Sulfate (Morphine) 4 mg SLOW IVP Q4H PRN PRN Reason: PAIN 2ND LINE Last Admin: 04/28/18 12:25 Dose: 4 mg Oxybutynin Chloride (Ditropan) 5 mg PO DAILY [facility] Last Admin: 04/28/18 08:45 Dose: Not Given Phenazopyridine HCl (Azo Standard) 97.5 mg PO PC [facility] Last Admin: 04/28/18 17:36 Dose: 97.5 mg Polyethylene Glycol (Miralax) 17 gm PO DAILY [facility] Sertraline HCl (Zoloft) 50 mg PO QAM [facility] Last Admin: 04/28/18 08:45 Dose: Not Given Sodium Chloride (Flush - Normal Saline) 10 ml IVF Q12HR [facility] Last Admin: 04/28/18 08:45 Dose: Not Given Sodium Chloride (Flush - Normal Saline) 10 ml IVF PRN PRN PRN Reason: Saline Flush Tamsulosin HCl (Flomax) 0.4 mg PO DAILY [facility] Last Admin: 04/28/18 08:45 Dose: Not Given Tramadol HCl (Ultram) 50 mg PO Q6H PRN PRN Reason: Pain Tramadol HCl (Ultram) 100 mg PO Q6H PRN PRN Reason: Pain
[2018-04-28] MEDS: metroNIDAZOLE 500 MG in Premix Bag 1 BAG IVPB SCH (21:54)
[2018-04-28] MEDS: Lorazepam 1 MG TAB PO SCH (21:56)
[2018-04-28] MEDS: Senokot 8.6 MG TAB PO SCH (21:58)
[2018-04-28] MEDS: Atorvastatin Calcium 20 MG TAB PO SCH (21:58)
[2018-04-28] MEDS: Sodium Chloride 0.9% 1,000 ML IV SCH (22:30)
[2018-04-28] MEDS: Morphine 4 MG/ML VIAL SLOW IVP PRN (22:30)
[2018-04-29] MEDS: Sodium Chloride 0.9% 1,000 ML IV SCH ×4 (03:30→22:28)
[2018-04-29 04:36] LABS: ALT (SGPT) 28 U/L (8-55); AST (SGOT) 41 U/L (5-34); Albumin 2.6 g/dL (3.4-4.8); Alkaline Phosphatase 86 U/L (40-150); Anion Gap 10 mmol/L (10-20); BUN (Urea Nitrogen) 23 mg/dL (8.4-25.7); Bilirubin, Total 0.5 mg/dL (0.2-1.2); Calc. Creatinine Clearance 96 mL/min (70-130); Calcium 8.5 mg/dL (7.8-10.44); Carbon Dioxide 21 mmol/L (23-31); Chloride 111 mmol/L (98-107); Estimated GFR-MDRD Greater than 90; Glucose 94 mg/dL (83-110); Potassium 3.9 mmol/L (3.5-5.1); Protein, Total 4.6 g/dL (5.8-8.1); Sodium 138 mmol/L (136-145)
[2018-04-29 04:38] LABS: Band 1 % (5-11); Eosinophils 3 % (0-10); Hemoglobin 12.4 g/dL (14.0-18.0); Lymphocytes 37 % (21-51); MDiff Complete? YES; Mean Corpuscular HGB CONC 32.8 g/dL (32.0-36.0); Mean Corpuscular Hemoglobin 29.9 pg (27.0-31.0); Mean Corpuscular Volume 91.1 fl (80.0-94.0); Mean Platelet Volume 7.1 fL (7.4-10.4); Monocytes 3 % (0-10); Neutrophil 56 % (42-75); PLT Morphology Comment Appears Adequate; Platelet Count 134 thou/uL (130-400); Red Blood Cell (RBC) Count 4.13 mill/uL (4.70-6.10); White Blood Cell (WBC) Count 9.1 thou/uL (4.8-10.8)
[2018-04-29] MEDS: Morphine 4 MG/ML VIAL SLOW IVP PRN ×2 (05:13→22:21)
[2018-04-29] MEDS: Levothyroxine Sodium 125 MCG TAB PO SCH (05:16)
[2018-04-29] MEDS: metroNIDAZOLE 500 MG in Premix Bag 1 BAG IVPB SCH (05:17)
[2018-04-29] MEDS: Amlodipine 10 MG TAB PO SCH (08:37)
[2018-04-29] MEDS: Oxybutynin 5 MG TAB PO SCH (08:38)
[2018-04-29] MEDS: Lisinopril 5 MG TAB PO SCH ×2 (08:39→20:08)
[2018-04-29] MEDS: Metoprolol Tartrate 25 MG TAB PO SCH ×2 (08:40→20:08)
[2018-04-29] MEDS: Tamsulosin HCl 0.4 MG CAP PO SCH (08:43)
[2018-04-29] MEDS: Phenazopyridine HCl 97.5 MG TABLET PO SCH ×3 (08:43→18:02)
[2018-04-29] MEDS: Polyethylene Glycol 3350 17 GM Packet PO SCH (08:44)
[2018-04-29] MEDS: Lorazepam 1 MG TAB PO SCH ×2 (08:44→20:05)
--- NOTE | 2018-04-29 13:06 | PDOC.PN ---
- Subjective Encounter Start Date: 04/29/18 Encounter Start Time: 12:30 Subjective: pt up in bed states he has some abdominal pain - Objective Resuscitation Status: Resuscitation Status DNR:Do Not Resuscitate Vital Signs & Weight: Vital Signs (12 hours) Temp Pulse Resp BP BP Pulse Ox 04/29/18 11:23 98.6 F 73 18 151/80 H 95 04/29/18 08:39 73 155/71 H 04/29/18 08:37 98.5 F 73 18 155/71 H 94 L 04/29/18 07:41 98.5 F 73 18 155/71 H 94 L 04/29/18 04:00 97.7 F 74 14 132/75 96 Weight Admit Weight 218 lb Weight 218 lb I&O: 04/28/18 04/29/18 04/30/18 06:59 06:59 06:59 Intake Total 2845 1487 Output Total 310 Balance 2845 1177 Result Diagrams: 04/29/18 03:33 04/29/18 03:33 Phys Exam - Physical Examination HEENT: PERRLA, moist MMs, sclera anicteric, TM's clear, oral pharynx no lesions , 2+ tonsils Neck: no nodes, no JVD, supple, full ROM Respiratory: no wheezing, no rales, no rhonchi, wheezing present, clear to auscultation bilateral Cardiovascular: RRR, no significant murmur, no rub, gallop, irregular Gastrointestinal: soft 5 incision with estephania Musculoskeletal: no edema mild weakness to left upper and lower ext Dx/Plan - Plan R MCA infract with hemorrhagic conversion * s/p cholecystectomy gangernous gall bladder). * afib * htn * hypothyroidism * * plan: Per last discharge surgery no AC no antiplatelets. will continue statin. vitals stable. will add flagyl in additional to levaquin given his gangernous gallbladder and advance age. Afib rate controlled. will check labs in am. * * 6/2 pt up in bed, encourage to dangle but pt complains of pain. pt was able to transfer to chair with assistance. Pt states his pain improves with morphine. will continue flagyl and levaquin. labs appear stable. scd for dvt ppx. * . Review of Systems - Review of Systems Eyes: negative: Pain, Vision Change, Conjunctivae Inflammation, Eyelid Inflammation, Redness, Other ENT: negative: Ear Pain, Ear Discharge, Nose Pain, Nose Discharge, Nose Congestion, Mouth Pain, Mouth Swelling, Throat Pain, Throat Swelling, Other Respiratory: negative: Cough, Dry, Shortness of Breath, Hemoptysis, SOB with Excertion, Pleuritic Pain, Sputum, Wheezing Cardiovascular: negative: chest pain, palpitations, orthopnea, paroxysmal nocturnal dyspnea, edema, light headedness, other Gastrointestinal: Abdominal Pain Genitourinary: negative: Dysuria, Frequency, Incontinence, Hematuria, Retention , Other Musculoskeletal: negative: Neck Pain, Shoulder Pain, Arm Pain, Back Pain, Hand Pain, Leg Pain, Foot Pain, Other - Medications/Allergies Allergies/Adverse Reactions: Allergies Allergy/AdvReac Type Severity Reaction Status Date / Time Penicillins Allergy Anaphylaxis Verified 09/06/16 15:33 Medications: Current Medications Acetaminophen (Tylenol) 1,000 mg PO Q6H PRN PRN Reason: Moderate to Severe Pain (6-10) Amlodipine Besylate (Norvasc) 5 mg PO DAILY [facility] Last Admin: 04/29/18 08:37 Dose: 5 mg Atorvastatin Calcium (Lipitor) 20 mg PO QPM [facility] Last Admin: 04/28/18 21:58 Dose: 20 mg Hydralazine HCl (Apresoline) 10 mg SLOW IVP Q6H PRN PRN Reason: SBP Greater Than 170 Sodium Chloride (Normal Saline 0.9%) 1,000 mls @ 70 mls/hr IV .[id number] [facility] Last Admin: 04/29/18 10:52 Dose: Not Given Ibuprofen (Motrin) 600 mg PO Q6H PRN PRN Reason: Pain Last Admin: 04/28/18 09:53 Dose: 600 mg Ketorolac Tromethamine (Toradol) 15 mg IVP Q6H PRN PRN Reason: Pain Stop: 05/02/18 10:32 Levofloxacin (Levaquin) 500 mg PO 0600 [facility] Stop: 05/04/18 16:00 Levothyroxine Sodium (Synthroid) 125 mcg PO 0600 [facility] Last Admin: 04/29/18 05:16 Dose: 125 mcg Lisinopril (Zestril) 5 mg PO BID [facility] Last Admin: 04/29/18 08:39 Dose: 5 mg Lorazepam (Ativan) 0.5 mg PO BID [facility] Last Admin: 04/29/18 08:44 Dose: 0.5 mg Metoprolol Tartrate (Lopressor) 25 mg PO BID [facility] Last Admin: 04/29/18 08:40 Dose: 25 mg Metronidazole (Flagyl) 500 mg PO TID [facility] Morphine Sulfate (Morphine) 2 mg SLOW IVP Q4H PRN PRN Reason: PAIN 1ST LINE Last Admin: 04/29/18 05:13 Dose: 2 mg Morphine Sulfate (Morphine) 4 mg SLOW IVP Q4H PRN PRN Reason: PAIN 2ND LINE Last Admin: 04/28/18 12:25 Dose: 4 mg Oxybutynin Chloride (Ditropan) 5 mg PO DAILY [facility] Last Admin: 04/29/18 08:38 Dose: 5 mg Phenazopyridine HCl (Azo Standard) 97.5 mg PO PC [facility] Last Admin: 04/29/18 12:59 Dose: 97.5 mg Polyethylene Glycol (Miralax) 17 gm PO DAILY [facility] Last Admin: 04/29/18 08:44 Dose: 17 gm Senna (Senokot) 2 tab PO QPM [facility] Last Admin: 04/28/18 21:58 Dose: 2 tab Sertraline HCl (Zoloft) 50 mg PO QAM [facility] Last Admin: 04/29/18 08:44 Dose: 50 mg Sodium Chloride (Flush - Normal Saline) 10 ml IVF Q12HR [facility] Last Admin: 04/29/18 08:48 Dose: Not Given Sodium Chloride (Flush - Normal Saline) 10 ml IVF PRN PRN PRN Reason: Saline Flush Tamsulosin HCl (Flomax) 0.4 mg PO DAILY [facility] Last Admin: 04/29/18 08:43 Dose: 0.4 mg Tramadol HCl (Ultram) 50 mg PO Q6H PRN PRN Reason: Pain Tramadol HCl (Ultram) 100 mg PO Q6H PRN PRN Reason: Pain
[2018-04-29] MEDS: metroNIDAZOLE 500 MG TAB PO SCH ×2 (15:59→20:02)
[2018-04-29] MEDS: Senokot 8.6 MG TAB PO SCH (20:02)
[2018-04-29] MEDS: Atorvastatin Calcium 20 MG TAB PO SCH (20:08)
[2018-04-30] MEDS: Levothyroxine Sodium 125 MCG TAB PO SCH (05:34)
[2018-04-30] MEDS: Tamsulosin HCl 0.4 MG CAP PO SCH (08:32)
[2018-04-30] MEDS: metroNIDAZOLE 500 MG TAB PO SCH (08:32)
[2018-04-30] MEDS: Amlodipine 10 MG TAB PO SCH (08:33)
[2018-04-30] MEDS: Oxybutynin 5 MG TAB PO SCH (08:33)
[2018-04-30] MEDS: Lorazepam 1 MG TAB PO SCH (08:33)
[2018-04-30] MEDS: Phenazopyridine HCl 97.5 MG TABLET PO SCH ×2 (08:33→12:47)
[2018-04-30] MEDS: Lisinopril 5 MG TAB PO SCH (08:34)
[2018-04-30] MEDS: Polyethylene Glycol 3350 17 GM Packet PO SCH (08:34)
[2018-04-30] MEDS: Metoprolol Tartrate 25 MG TAB PO SCH (08:34)
[2018-04-30] MEDS ORDERED: Lorazepam 0.5 MG TAB PO PRN (11:26)
[2018-04-30] MEDS ORDERED: Sodium Chloride 0.9% 1,000 ML IV SCH (11:30)
--- NOTE | 2018-04-30 14:14 | PDOC.PN ---
- Subjective Encounter Start Date: 04/30/18 Encounter Start Time: 12:00 Subjective: pt up in bed has some abdominal pain - Objective Resuscitation Status: Resuscitation Status DNR:Do Not Resuscitate Vital Signs & Weight: Vital Signs (12 hours) Temp Pulse Resp BP BP Pulse Ox 04/30/18 11:39 98.7 F 72 18 122/68 95 04/30/18 08:34 69 123/82 04/30/18 08:33 69 123/82 04/30/18 08:32 98.5 F 69 18 98 04/30/18 07:31 98.5 F 69 18 123/82 98 04/30/18 04:10 99 F 72 18 146/77 H 94 L Weight Admit Weight 218 lb Weight 218 lb I&O: 04/29/18 04/30/18 05/01/18 06:59 06:59 06:59 Intake Total 1487 2820 Output Total 310 300 Balance 1177 2520 Result Diagrams: 04/29/18 03:33 04/29/18 03:33 Phys Exam - Physical Examination HEENT: PERRLA, moist MMs, sclera anicteric, TM's clear, oral pharynx no lesions , 2+ tonsils Neck: no nodes, no JVD, supple, full ROM Respiratory: no wheezing, no rales, no rhonchi, wheezing present, clear to auscultation bilateral Cardiovascular: RRR, no significant murmur, no rub, gallop, irregular Gastrointestinal: soft mild tenderness on palpation around his surgical sites, estephania drain Musculoskeletal: no edema, pulses present, edema present Neurological: non-focal, normal sensation, moves all 4 limbs Dx/Plan - Plan R MCA infract with hemorrhagic conversion * s/p cholecystectomy gangernous gall bladder). * afib * htn * hypothyroidism * * plan: Per last discharge surgery no AC no antiplatelets. will continue statin. vitals stable. will add flagyl in additional to levaquin given his gangernous gallbladder and advance age. Afib rate controlled. will check labs in am. * * 6/2 pt up in bed, encourage to dangle but pt complains of pain. pt was able to transfer to chair with assistance. Pt states his pain improves with morphine. will continue flagyl and levaquin. labs appear stable. scd for dvt ppx. * 6/3 pt still has some abd pain. Estephania continues to have drainage. pt had a bm. Spoke with son that he needs to follow up with neurology to have a start date on his asa for stroke prevention. will change pt's ativan to prn and lower the dose. Review of Systems - Review of Systems Eyes: negative: Pain, Vision Change, Conjunctivae Inflammation, Eyelid Inflammation, Redness, Other ENT: negative: Ear Pain, Ear Discharge, Nose Pain, Nose Discharge, Nose Congestion, Mouth Pain, Mouth Swelling, Throat Pain, Throat Swelling, Other Respiratory: negative: Cough, Dry, Shortness of Breath, Hemoptysis, SOB with Excertion, Pleuritic Pain, Sputum, Wheezing Cardiovascular: negative: chest pain, palpitations, orthopnea, paroxysmal nocturnal dyspnea, edema, light headedness, other Gastrointestinal: Abdominal Pain Genitourinary: negative: Dysuria, Frequency, Incontinence, Hematuria, Retention , Other - Medications/Allergies Allergies/Adverse Reactions: Allergies Allergy/AdvReac Type Severity Reaction Status Date / Time Penicillins Allergy Anaphylaxis Verified 09/06/16 15:33 Medications: Current Medications Acetaminophen (Tylenol) 1,000 mg PO Q6H PRN PRN Reason: Moderate to Severe Pain (6-10) Amlodipine Besylate (Norvasc) 5 mg PO DAILY [facility] Last Admin: 04/30/18 08:33 Dose: 5 mg Atorvastatin Calcium (Lipitor) 20 mg PO QPM [facility] Last Admin: 04/29/18 20:08 Dose: 20 mg Hydralazine HCl (Apresoline) 10 mg SLOW IVP Q6H PRN PRN Reason: SBP Greater Than 170 Sodium Chloride (Normal Saline 0.9%) 1,000 mls @ 30 mls/hr IV .Q24H [facility] Last Admin: 04/30/18 12:47 Dose: Not Given Ibuprofen (Motrin) 600 mg PO Q6H PRN PRN Reason: Pain Last Admin: 04/28/18 09:53 Dose: 600 mg Ketorolac Tromethamine (Toradol) 15 mg IVP Q6H PRN PRN Reason: Pain Stop: 05/02/18 10:32 Levofloxacin (Levaquin) 500 mg PO 0600 [facility] Stop: 05/04/18 16:00 Last Admin: 04/30/18 05:33 Dose: 500 mg Levothyroxine Sodium (Synthroid) 125 mcg PO 0600 [facility] Last Admin: 04/30/18 05:34 Dose: 125 mcg Lisinopril (Zestril) 5 mg PO BID [facility] Last Admin: 04/30/18 08:34 Dose: 5 mg Lorazepam (Ativan) 0.25 mg PO BID PRN PRN Reason: Anxiety Metoprolol Tartrate (Lopressor) 25 mg PO BID [facility] Last Admin: 04/30/18 08:34 Dose: 25 mg Metronidazole (Flagyl) 500 mg PO TID [facility] Last Admin: 04/30/18 08:32 Dose: 500 mg Morphine Sulfate (Morphine) 2 mg SLOW IVP Q4H PRN PRN Reason: PAIN 1ST LINE Last Admin: 04/29/18 22:21 Dose: 2 mg Oxybutynin Chloride (Ditropan) 5 mg PO DAILY [facility] Last Admin: 04/30/18 08:33 Dose: 5 mg Phenazopyridine HCl (Azo Standard) 97.5 mg PO PC [facility] Last Admin: 04/30/18 12:47 Dose: 97.5 mg Polyethylene Glycol (Miralax) 17 gm PO DAILY [facility] Last Admin: 04/30/18 08:34 Dose: 17 gm Senna (Senokot) 2 tab PO QPM [facility] Last Admin: 04/29/18 20:02 Dose: 2 tab Sertraline HCl (Zoloft) 50 mg PO QAM [facility] Last Admin: 04/30/18 08:33 Dose: 50 mg Sodium Chloride (Flush - Normal Saline) 10 ml IVF Q12HR [facility] Last Admin: 04/30/18 08:34 Dose: Not Given Sodium Chloride (Flush - Normal Saline) 10 ml IVF PRN PRN PRN Reason: Saline Flush Tamsulosin HCl (Flomax) 0.4 mg PO DAILY [facility] Last Admin: 04/30/18 08:32 Dose: 0.4 mg Tramadol HCl (Ultram) 50 mg PO Q6H PRN PRN Reason: Pain
--- NOTE | 2018-04-30 14:21 | PRG ---
DATE OF SERVICE: 04/30/2018 SUBJECTIVE: The patient is doing well. He is tolerating a regular diet. His pain is controlled on oral medications. His bowels are working well. His JOSEPHINE has been putting out a lot of serous fluid, b ut it is not bile tinge. His white count is normal at 9.1. Vital signs are good. Plan is to go and remove the JOSEPHINE and have him sent back to long term.
[2018-04-30 14:26] VITALS: BP 123/65; TEMP 98.9
[2018-04-30] MEDS ORDERED: Lorazepam 0.5 MG TAB PO SCH (21:00)
--- NOTE | 2018-05-02 17:55 | EKG ---
Test Reason : PREOP Blood Pressure : / mmHG Vent. Rate : 072 BPM Atrial Rate : 096 BPM P-R Int : 000 ms QRS Dur : 150 ms QT Int : 432 ms P-R-T Axes : 000 -57 089 degrees QTc Int : 473 ms Atrial fibrillation Left axis deviation Left bundle branch block Abnormal ECG When compared with ECG of 27-APR-2018 00:27, (Unconfirmed) No significant change was found Confirmed by Phong LICONA ([id number]) on 05/02/2018 5:55:29 PM Referred By: KENROY Confirmed By:Phong LICONA
== END 2018-04-30 14:53 | DRG 418 ==
LOC: ERS 21:03 → SURG A 04-27 00:20
PROVIDERS: ADMIT Specialist; ATTEND Specialist
PROC: 0FT44ZZ Resection of Gallbladder, Percutaneous Endoscopic Approach (ICD-10-PCS; principal; 2018-04-28)
PROC: BF10YZZ Fluoroscopy of Bile Ducts using Other Contrast (ICD-10-PCS; 2018-04-28)
DX: K80.00 Calculus of gallbladder with acute cholecystitis without obstruction (principal); I69.354 Hemiplegia and hemiparesis following cerebral infarction affecting left non-dominant side; I48.2 Chronic atrial fibrillation; I10 Essential (primary) hypertension; E78.5 Hyperlipidemia, unspecified; E03.9 Hypothyroidism, unspecified; Z96.611 Presence of right artificial shoulder joint; Z90.49 Acquired absence of other specified parts of digestive tract; Z86.010 Personal history of colon polyps; Z66 Do not resuscitate; Z79.01 Long term (current) use of anticoagulants
CPT/HCPCS: 36415; 76000; 76705; 80048; 80053; 80076; 83605; 85007; 85027; 88304; 93005; 93010; 96360; A4216; J0131; J0670; J1610; J1956; J2001; J2270; J2704; J3010; J7050; Q9961

== ENCOUNTER 2018-07-10 12:53 | Observation (INO) | payer MEDICARE, BC ==
[2018-07-10 13:38] LABS: Hemoglobin 14.1 g/dL (14.0-18.0); Mean Corpuscular HGB CONC 33.2 g/dL (32.0-36.0); Mean Corpuscular Hemoglobin 31.7 pg (27.0-31.0); Mean Corpuscular Volume 95.4 fL (78.0-98.0); Mean Platelet Volume 5.9 fL (7.4-10.4); Platelet Count 136 thou/uL (130-400); RBC Distribution Width 14.1 % (11.5-14.5); Red Blood Cell (RBC) Count 4.46 mill/uL (4.70-6.10); White Blood Cell (WBC) Count 17.3 thou/uL (4.8-10.8)
[2018-07-10 14:01] LABS: CKMB 1.4 ng/mL (0-6.6); Troponin I Less than 0.010 ng/mL (< 0.028)
[2018-07-10 14:02] LABS: ALT (SGPT) 17 U/L (8-55); AST (SGOT) 12 U/L (5-34); Alkaline Phosphatase 69 U/L (40-150); Anion Gap 10 mmol/L (10-20); BUN (Urea Nitrogen) 22 mg/dL (8.4-25.7); Band 4 % (5-11); Bilirubin, Total 1.2 mg/dL (0.2-1.2); CK (CPK) 24 U/L (30-200); Calc. Creatinine Clearance 0 mL/min (70-130); Calcium 9.2 mg/dL (7.8-10.44); Carbon Dioxide 28 mmol/L (23-31); Chloride 105 mmol/L (98-107); Estimated GFR-MDRD 65; Glucose 88 mg/dL (83-110); Lymphocytes 31 % (21-51); MDiff Complete? YES; Monocytes 2 % (0-10); Neutrophil 62 % (42-75); PLT Morphology Comment Appears Adequate; Potassium 4.3 mmol/L (3.5-5.1); RBC Morphology Normal; Sodium 139 mmol/L (136-145)
[2018-07-10 15:24] LABS: Bacteria/HPF None Seen HPF (None Seen); Leukocyte Moderate (Negative); Pathc Cast-AUWi Flag 0.29 (0-2.49); Squamous Epithelial None Seen HPF (0-3); pH, Urine 5.5 (5.0-9.0)
--- NOTE | 2018-07-10 15:26 | RAD ---
CHEST ONE VIEW: HISTORY: Syncope. COMPARISON: 04/06/2018 FINDINGS: The cardiac silhouette is magnified by projection. The pulmonary vasculature are unremarkable. The mediastinum is midline with aortic calcification. No lobar consolidation or evidence of pneumothorax . potline monitor leads overly the chest. Right shoulder prosthesis. Degenerative changes of the l eft shoulder. IMPRESSION: Atherosclerosis. Chronic type findings are stable. POS: [facility]
[2018-07-10 15:27] LABS: Bilirubin Unable to Interpret (Negative); Blood, Urine Small (Negative); Clarity Hazy (Clear); Glucose, Urine (Dipstick) Unable to Interpret mg/dL (Negative); Nitrite Unable to Interpret (Negative); Urobilinogen UNABLE TO INTERPRET mg/dL (0.2-1.0)
[2018-07-10 15:28] LABS: Protein, Urine (Dipstick) Negative (Neg-Trace); Specific Gravity, Urine 1.022 (1.002-1.036)
[2018-07-10 15:37] LABS: Hyaline Casts/LPF 0-3 HYALINE CAST LPF (0-3 Hyaline); RBC/HPF 0-3 HPF (0-3)
[2018-07-10] MEDS ORDERED: cefTRIAXone\\ROCEPHIN 2 GM VIAL ONE (16:16)
[2018-07-10] MEDS ORDERED: Acetaminophen 325 MG TAB PO PRN (18:37)
[2018-07-10] MEDS ORDERED: HYDROcodone/Acetaminophen 10/325 mg Tablet PO PRN (18:48)
[2018-07-10] MEDS ORDERED: Senokot 8.6 MG TAB PO PRN (18:48)
[2018-07-10] MEDS ORDERED: Docusate 100 MG CAP PO PRN (18:48)
[2018-07-10 19:21] LABS: Troponin I Less than 0.010 ng/mL (< 0.028)
--- NOTE | 2018-07-10 21:34 | HP ---
DATE OF SERVICE: 07/10/2018 CHIEF COMPLAINT: "Blacked out." HISTORY OF PRESENT ILLNESS: This is an 88-year-old male with history of ischemic stroke with hemorrhagic conversion, hypertension, chronic atrial fibrillation, only on aspirin therapy and hypothyroidism, who presents to the emergency room with the complaint of blacked out. The patient reports that he was in therapy at [facility] around 10:30 or 11:00 today and he had been standing and sitting for therapy when everything went dark. Reports that he lost vision; however, he did not lose consciousness or fall. He states that it lasted about 3-4 minutes, denies any headache or precipitating events. He does have a prior history one week before after therapy when this occurred that self resolved. He also reports that this has happened all of his life and it has been a risk of vagal response. He denies any fevers, chills, nausea, vomiting, abdominal pain, shortness of breath, chest pain, headache or any other symptoms. He notes his urine has been orange for the past 3 months because he has been on AZO 3 times daily for what he was told is a bladder infection. He denies any recent antibiotics. He reports an urge to urinate; however, cannot feel himself urinate and reports urinary retention after his stroke. The only recent change in his care was injection in both of his knees with steroids by his daughter who is churn driller helper approximately 10 days ago for chronic arthritis type pain. He denies any change in medications or new medications. In the emergency room, patient's presentation concerning for near syncope, found to have a UTI, he received 2 grams of Rocephin and Hospitalist called for admission. ALLERGIES TO MEDICINE: PENICILLIN. CURRENT MEDICATIONS: Reviewed with the list from [facility] on his chart. 1. Senokot 2 tablets every evening. 2. Colace 100 mg b.i.d. p.r.n. 3. Lorazepam 0.5 mg b.i.d. 4. Pro-Stat 30 mL b.i.d. 5. Synthroid 150 mcg daily. 6. Aspirin 81 mg daily. 7. Tamsulosin 0.4 mg daily. 8. Calcium 600 mg daily. 9. Ditropan XL 5 mg daily. 10. Tylenol 500 mg 2 tablets every 6 hours as needed. 11. Zofran 4 mg q.4 hours p.r.n. 12. AZO 97.5 mg t.i.d. 13. [place] 10/325 every 4 hours as needed. 14. Ibuprofen 600 mg every 6 hours as needed. 15. MiraLax 17 grams once daily. 16. Dulcolax suppository 10 mg [place] daily as needed. 17. Metoprolol tartrate 25 mg b.i.d., holding for blood pressure less than 105 or pulse less than 55. 18. Lipitor 20 mg at bedtime. 19. Vitamin D 2000 units daily. 20. Nitrostat 0.4 mg sublingual every 5 minutes as needed. 21. Lisinopril 5 mg b.i.d. 22. Pepcid 20 mg once daily. 23. Imodium 2 tablets p.r.n. 24. Tylenol with Codeine 1 tablet every 6 hours as needed. 25. Zoloft 50 mg daily. SOCIAL HISTORY: Patient is at the [facility], code status is DO NOT RESUSCITATE. This was confirmed with him and his surrogate decision maker is his daughter, Nidia Loyola, telephone number [phone]. No alcohol or tobacco. PAST MEDICAL HISTORY: 1. Atrial fibrillation, chronic, was on full anticoagulation with Eliquis until the stroke with hemorrhagic conversion, and now is maintained on daily low -dose aspirin. His residential director is Dr. Chauhan. 2. Hypertension. 3. BPH. 4. Hypothyroidism. 5. Chronic arthritis pain. 6. Ischemic stroke with hemorrhagic conversion in March of this year. The patient reports changes in his speech, weakness in his left arm greater than his left leg, nerve pain in his left elbow since the stroke. 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 Cholecystectomy. 2. Right shoulder replacement. 3. Cataract. 4. Thyroid surgery. 5. Injections due to arthritis. 6. Right colectomy for polyp. REVIEW OF SYSTEMS: As noted above is negative for nausea, vomiting, fevers, chills, abdominal pain, shortness of breath. All remaining review of systems is reviewed and negative. PHYSICAL EXAMINATION: VITAL SIGNS: His blood pressure 133/70, pulse 59, respirations 18, saturations 97% on room air. GENERAL: Awake, alert, responsive, in no apparent distress, able to speak in full sentences with slightly slowed speech. HEENT: His pupils are equal and round. Oral mucosa is pink and moist. NECK: Supple, nontender. LYMPHATICS: No palpable cervical or supraclavicular lymphadenopathy. LUNGS: Clear to auscultation bilateral. No audible wheezing, rhonchi or rales. HEART: Normal S1 and S2. Irregularly irregular without audible murmurs. ABDOMEN: Soft. Present bowel sounds. Nontender, nondistended. EXTREMITIES: No pitting edema. SKIN: He has multiple areas of ecchymosis on his arms as well as his legs that he reports is chronic and secondary to the prior history of Eliquis. No visible rashes. NEUROLOGIC: Limited ability to raise his left arm up which he reports is secondary to the nerve pain in the elbow. Full movement of his left lower extremity as well as his right side. PSYCHIATRIC: The patient appears euthymic, linear, logical, goal directed thought process. IMAGING DATA: EKG reviewed, atrial fibrillation with a rate of 59. Left axis deviation, left bundle branch block, no ST changes. Chest x-ray is personally reviewed, no acute process, chronic type findings such as atherosclerosis. LABORATORY DATA: 1. CBC; 17.3, 14.1, 42.6, 136. 2. Chemistry; 139, 4.3, 105, 28, 22, 1.08, 88. 3. LFTs normal. 4. Troponin negative. CK 24. 5. Urinalysis, moderate leukocyte esterase, greater than 50 white blood cells. IMPRESSION: 1. Near syncope, likely secondary to urinary tract infection. 2. Urinary tract infection in a patient who has chronically been on AZO, with possible urinary retention. 3. Leukocytosis may be secondary to urinary tract infection and/or recent steroid injections in his knees. 5. Hypertension, well controlled. 6. Chronic atrial fibrillation, rate controlled. 7. History of ischemic stroke with hemorrhagic conversion, not on anticoagulation for the atrial fibrillation due to this, with some residual deficits in his left arm, leg, and speech. 8. Hypothyroidism. 9. Benign prostatic hypertrophy. PLAN: 1. Observation status in the hospital. 2. Continuing the Rocephin following the urine culture, bladder scanning 4 times daily and in and out straight catheterization if residual is greater than 200 mL after voiding. 3. Continuing his usual home medications with the exception of the Ditropan, which may be causing or contributing to urinary retention. We will also hold the AZO as I am not sure why patient continues to be on it. 4. We will request PT/OT while the patient is here. 5. Follow his white blood cell count for change with treatment of the urinary tract infection. 6. Fall precautions. 7. Deep venous thrombosis prophylaxis. We will use pneumatic compression devices. 8. Gastrointestinal prophylaxis not indicated. We will continue the daily famotidine that [facility]. 9. Code status is DNR, confirmed with the patient and surrogate decision maker as noted above, his daughter. 10. Reviewed the plan of care with the patient who demonstrates understanding. No questions or further needs at end of evaluation. 11. The patient is at high risk given age, comorbidities, and current presentation. MTDD
[2018-07-10 22:53] VITALS: BMI 28.3
[2018-07-10] MEDS: Lisinopril 5 MG TAB PO SCH (23:12)
[2018-07-10] MEDS: Atorvastatin Calcium 20 MG TAB PO SCH (23:12)
[2018-07-10] MEDS: Metoprolol Tartrate 25 MG TAB PO SCH (23:13)
[2018-07-10] MEDS: Lorazepam 0.5 MG TAB PO SCH (23:18)
[2018-07-11] MEDS: Levothyroxine 150 MCG TAB PO SCH (05:51)
[2018-07-11 06:31] LABS: Anion Gap 14 mmol/L (10-20); BUN (Urea Nitrogen) 20 mg/dL (8.4-25.7); Calc. Creatinine Clearance 71 mL/min (70-130); Carbon Dioxide 21 mmol/L (23-31); Chloride 107 mmol/L (98-107); Estimated GFR-MDRD 72; Glucose 86 mg/dL (83-110); Potassium 4.2 mmol/L (3.5-5.1); Sodium 138 mmol/L (136-145)
[2018-07-11 06:33] LABS: #Basophils 0.1 thou/uL (0.0-0.2); #Eosinphils 0.1 thou/uL (0.0-0.7); #Lymphocytes 3.9 thou/uL (1.20-3.40); #Monocytes 0.5 thou/uL (0.11-0.59); #Neutrophils 5.8 thou/uL (1.40-6.50); %Basophils 0.5 % (0.0-1.0); %Monocytes 4.4 % (0.0-10.0); %Neutrophils 56.1 % (42.0-75.0); Hemoglobin 13.1 g/dL (14.0-18.0); Mean Corpuscular Hemoglobin 31.8 pg (27.0-31.0); Mean Corpuscular Volume 96.3 fL (78.0-98.0); Mean Platelet Volume 6.6 fL (7.4-10.4); Platelet Count 123 thou/uL (130-400); RBC Distribution Width 14.1 % (11.5-14.5); Red Blood Cell (RBC) Count 4.11 mill/uL (4.70-6.10); White Blood Cell (WBC) Count 10.4 thou/uL (4.8-10.8)
[2018-07-11] MEDS: Aspirin 81 mg Enteric Coated Tablet PO SCH (08:45)
[2018-07-11] MEDS: Lorazepam 0.5 MG TAB PO SCH (08:45)
[2018-07-11] MEDS: Famotidine 20 MG TAB PO SCH (08:45)
[2018-07-11] MEDS: Polyethylene Glycol 3350 17 GM Packet PO SCH (08:45)
[2018-07-11] MEDS: Metoprolol Tartrate 25 MG TAB PO SCH ×2 (08:45→20:43)
[2018-07-11] MEDS: Tamsulosin HCl 0.4 MG CAP PO SCH (08:45)
[2018-07-11] MEDS: Lisinopril 5 MG TAB PO SCH ×2 (08:46→20:44)
--- NOTE | 2018-07-11 14:30 | PDOC.PN ---
- Subjective Encounter Start Date: 07/11/18 (f/u near syncope) Encounter Start Time: 14:28 Subjective: Pt denies any pain or problems. Denies any further feeling of lost -: vision. Talked with daughter by phone who reports heart rate generally in -: the 70's. No residual urine by bladder scan since admit - Objective Resuscitation Status: Resuscitation Status DNR:Do Not Resuscitate Vital Signs & Weight: Vital Signs (12 hours) Temp Pulse Pulse Pulse Resp BP BP 07/11/18 11:54 98.5 F 62 18 07/11/18 09:57 71 71 151/82 H 187/84 H 07/11/18 08:46 63 07/11/18 08:32 68 75 174/81 H 177/79 H 07/11/18 07:55 97.8 F 63 18 07/11/18 07:46 97.8 F 63 18 07/11/18 04:00 97.9 F 54 L 18 BP Pulse Ox 07/11/18 11:54 140/65 93 L 07/11/18 09:57 07/11/18 08:46 07/11/18 08:32 07/11/18 07:55 07/11/18 07:46 140/62 93 L 07/11/18 04:00 137/70 97 Weight Admit Weight 209 lb Weight 209 lb I&O: 07/10/18 07/11/18 07/12/18 06:59 06:59 06:59 Intake Total 100 240 Output Total 400 Balance -300 240 Result Diagrams: 07/11/18 06:02 07/11/18 06:02 EKG Reviewed by me: Yes (tele - a fib/flutter 50-60s) Phys Exam - Physical Examination Constitutional: NAD Respiratory: no wheezing, no rales, no rhonchi, clear to auscultation bilateral Cardiovascular: no significant murmur, irregular bradycardic Gastrointestinal: soft, non-tender, no distention, positive bowel sounds Musculoskeletal: no edema Neurological: moves all 4 limbs unchanged from yesterday Psychiatric: normal affect Deviation from normal: multiple areas of ecchymosis along arms and few areas on legs Dx/Plan (1) Bradycardia Code(s): R00.1 - BRADYCARDIA, UNSPECIFIED Status: Acute (2) UTI (urinary tract infection) Status: Acute Qualifiers: Urinary tract infection type: acute cystitis Hematuria presence: without hematuria Qualified Code(s): N30.00 - Acute cystitis without hematuria (3) Near syncope Status: Acute (4) Afib Code(s): I48.91 - UNSPECIFIED ATRIAL FIBRILLATION Status: Chronic Qualifiers: Atrial fibrillation type: chronic Qualified Code(s): I48.2 - Chronic atrial fibrillation (5) CLL (chronic lymphocytic leukemia) Code(s): C91.90 - LYMPHOID LEUKEMIA, UNSPECIFIED NOT HAVING ACHIEVED REMISSION Status: Chronic (6) Dyslipidemia Code(s): E78.5 - HYPERLIPIDEMIA, UNSPECIFIED Status: Chronic (7) HTN (hypertension) Code(s): I10 - ESSENTIAL (PRIMARY) HYPERTENSION Status: Chronic Qualifiers: Hypertension type: essential hypertension Qualified Code(s): I10 - Essential (primary) hypertension (8) Hypothyroidism Code(s): E03.9 - HYPOTHYROIDISM, UNSPECIFIED Status: Chronic Qualifiers: Hypothyroidism type: unspecified Qualified Code(s): E03.9 - Hypothyroidism , unspecified - Plan * Urine culture with gram negative shyla - anticipate ID & sensitivities tomorrow , is on rocephin, wbc improved * near syncope - likely secondary to UTI. May also be a component of bradycardia, as well as pt reports chronic vasovagal sx. * bradycardia - discussed with the patient's daughter who reports pt is normally around 70 bpm. Here he has been 50's-60's in afib/flutter. Called but his Front Desk Supervisor Dr. Chauhan is out of town. Will need to follow up as an outpatient on this issue. For now, will decrease the metoprolol to 12.5 mg bid and maintain hold parameters * htn - initially normal bp earlier and lisinopril changed to once daily, however bp's have increased to 150's - changed back to 5 mg bid. * * anticipate d/c tomorrow after monitoring for urine cx results and effect of change in metoprolol. * * continue other meds as ordered. No indication for detrol or azo. * * dvt prophy - scd's * gi prophy - not indicated * code status dnr * * reviewed plan of care with patient, no questions or further needs at end of eval.
[2018-07-11] MEDS ORDERED: cefTRIAXone\\ROCEPHIN 2 GM in Sodium Chloride 0.9% 100 ML IVPB SCH (17:00)
--- NOTE | 2018-07-11 18:12 | PDOC.EVN ---
Event Note - Event Note Event Note: Called by RN for concern of aspiration while feeding dinner - respirations increased to low 30's. REquested that pt be NPO and evaluated by speech therapy tomorrow.
--- NOTE | 2018-07-11 18:14 | PDOC.EVN ---
Event Note - Event Note Event Note: event note entered at 18:11 today for this patient is an error -please disregard.
[2018-07-11] MEDS: Atorvastatin Calcium 20 MG TAB PO SCH (20:43)
[2018-07-12] MEDS: Levothyroxine 150 MCG TAB PO SCH (05:13)
[2018-07-12 06:03] LABS: #Basophils 0.1 thou/uL (0.0-0.2); #Eosinphils 0.1 thou/uL (0.0-0.7); #Lymphocytes 4.7 thou/uL (1.20-3.40); #Monocytes 0.6 thou/uL (0.11-0.59); #Neutrophils 5.6 thou/uL (1.40-6.50); %Lymphocytes 42.5 % (21.0-51.0); %Monocytes 5.1 % (0.0-10.0); %Neutrophils 50.4 % (42.0-75.0); Hemoglobin 12.9 g/dL (14.0-18.0); Mean Corpuscular HGB CONC 34.3 g/dL (32.0-36.0); Mean Corpuscular Hemoglobin 32.9 pg (27.0-31.0); Mean Platelet Volume 6.6 fL (7.4-10.4); Platelet Count 129 thou/uL (130-400); RBC Distribution Width 14.3 % (11.5-14.5); Red Blood Cell (RBC) Count 3.92 mill/uL (4.70-6.10); White Blood Cell (WBC) Count 11.1 thou/uL (4.8-10.8)
[2018-07-12 06:24] LABS: Anion Gap 11 mmol/L (10-20); BUN (Urea Nitrogen) 24 mg/dL (8.4-25.7); Calc. Creatinine Clearance 60 mL/min (70-130); Calcium 9.1 mg/dL (7.8-10.44); Carbon Dioxide 25 mmol/L (23-31); Chloride 105 mmol/L (98-107); Estimated GFR-MDRD 59; Glucose 92 mg/dL (83-110); Potassium 4.1 mmol/L (3.5-5.1); Sodium 137 mmol/L (136-145)
[2018-07-12] MEDS: Polyethylene Glycol 3350 17 GM Packet PO SCH (08:35)
[2018-07-12] MEDS: Lisinopril 5 MG TAB PO SCH (08:41)
[2018-07-12] MEDS: Metoprolol Tartrate 25 MG TAB PO SCH (08:41)
[2018-07-12] MEDS: Tamsulosin HCl 0.4 MG CAP PO SCH (08:41)
[2018-07-12] MEDS: Famotidine 20 MG TAB PO SCH (08:44)
[2018-07-12] MEDS: Aspirin 81 mg Enteric Coated Tablet PO SCH (08:44)
[2018-07-12] MEDS ORDERED: Lisinopril 5 MG TAB PO SCH (09:00)
[2018-07-12 12:00] VITALS: BP 143/57; TEMP 98.6
--- NOTE | 2018-07-19 16:03 | EKG ---
Test Reason : NEAR SYNCOPE Blood Pressure : / mmHG Vent. Rate : 059 BPM Atrial Rate : 069 BPM P-R Int : 000 ms QRS Dur : 138 ms QT Int : 490 ms P-R-T Axes : 000 -57 038 degrees QTc Int : 485 ms Atrial fibrillation with slow ventricular response Left axis deviation Left bundle branch block Abnormal ECG Confirmed by KYA TOLBERT, ZOHRA ([id number]), content editor ROB MCLAIN ([id number]) on 07/19/2018 4:02:29 PM Referred By: Confirmed By:ZOHRA BOLAND MD
== END 2018-07-12 15:53 | disposition home or self-care (01) ==
LOC: ERS 12:53 → 2SE 21:55
PROVIDERS: ADMIT Family Medicine; ATTEND Family Medicine
DX: R55 Syncope and collapse (principal); R00.1 Bradycardia, unspecified; N39.0 Urinary tract infection, site not specified; I48.91 Unspecified atrial fibrillation; C91.90 Lymphoid leukemia, unspecified not having achieved remission; E78.5 Hyperlipidemia, unspecified; I10 Essential (primary) hypertension; E03.9 Hypothyroidism, unspecified; N40.0 Benign prostatic hyperplasia without lower urinary tract symptoms; Z88.0 Allergy status to penicillin; Z79.82 Long term (current) use of aspirin; Z79.899 Other long term (current) drug therapy
CPT/HCPCS: 71045; 80048 ×2; 80053; 82550; 82553; 84484 ×2; 85025 ×3; 87077; 87086; 87184; 87186; 93005; 94760; 96365 ×2; 97116; 97139 ×3; 97530; 99285; G0378 ×2; G8978; G8979; G8987; G8988; 36415; 81003; 81015; A4216; J0696; J7050

== ENCOUNTER 2018-11-06 13:33 | Inpatient (IN) | payer MEDICARE, BC ==
[2018-11-06 14:26] LABS: Actual Bicarbonate (HCO3a) 18.9 mEq/L (22-28); Analyzer IN Cardio ER; Base Excess (BEa) -6.8 mEq/L (-2.0 to +3.0); CO2 Tension 38.9 mmHg (35.0-45.0); Calcium, Ionized 1.25 mmol/L (1.12-1.30); Carboxyhemoglobin (COHb) 2.5 gm% (0.0-3.0); Hemoglobin (Hb) 13.3 g/dL (14.0-18.0); O2 Tension (PaO2) 79.8 mmHg (> 60.0); Potassium - ABG Lab 4.17 mmol/L (3.70-5.30); pH, Arterial 7.31 (7.35-7.45)
[2018-11-06 14:27] LABS: ALV-art Gradient 21.305 (0-20); Puncture Site RRA
[2018-11-06] MEDS ORDERED: Lorazepam 2 MG/ML VIAL SLOW IVP PRN (16:16)
[2018-11-06 17:19] LABS: Troponin I 0.055 ng/mL (< 0.028)
[2018-11-06] MEDS: cefTRIAXone\\ROCEPHIN 1 GM in Sodium Chloride 0.9% 100 ML IVPB SCH (17:59)
[2018-11-06] MEDS: Sodium Chloride 0.9% 1,000 ML IV SCH (17:59)
--- NOTE | 2018-11-06 22:45 | CON ---
DATE OF CONSULTATION: 11/06/2018 HISTORY OF PRESENT ILLNESS: This is an 88-year-old gentleman, who was brought from [place] with acute mental status changes. Son is at the bedside. He gives excellent history. He was well until March when he had his initial stroke with left-sided weakness following which he has had multiple problems including cholecystectomy, urinary tract infection, and syncopal episode. This morning, he had some further mental status change, aphasic, absent movement on his left side. He has extensive ecchymoses of both upper and lower extremities. A CT of his head was taken and apparently he has some difficulty breathing issues, for which he was transferred here on a BiPAP. He has been in the ER at [facility] for a period of time, but upon arrival, he was 100% non-rebreather, blood pressure 176/72, respirations 30. By the time he got to the MICU, his BiPAP was removed, his sats were appropriate. He was moaning and groaning because of pain. He does open his eyes. He is a DNR, not to be intubated, not to be resuscitated as per the son. He has been in the rehab for a period of time, now in a [facility]. PAST MEDICAL HISTORY: 1. Carotid disease. 2. Hypothyroidism. 3. Hyperlipidemia. 4. Hypertension. 5. . 6. Thyroid cancer. 7. Cerebrovascular accident with left-sided weakness. 8. Previous thyroid surgery. 9. Previous right lung rupture. 10. No history of smoking in the past. 11. Recent syncopal episode, which was felt to be secondary to urinary tract infection. PAST SURGICAL HISTORY: As noted, 1. Gallbladder. 2. Right shoulder. 3. Cataract. 4. Thyroid surgery. 5. Right colectomy. MEDICATIONS: His list of medicine includes, 1. Flomax 0.4. 2. Zoloft 50. 3. Ditropan 5. 4. Azo 97.5. 5. Zestril 5. 6. Lopressor 12.5. 7. Synthroid 125. 8. Ativan p.r.n. 9. Calcium. 10. Atorvastatin 25. 11. Aspirin 81. 12. He was now started on Keppra for his recent seizure activity. ALLERGIES: PENICILLIN. REVIEW OF SYSTEMS: Otherwise unobtainable. PHYSICAL EXAMINATION: VITAL SIGNS: Blood pressure of 160/70, pulse 80, . HEENT: He opens his eyes. EXTREMITIES: Not able to move the left side. Extensive bruising, ecchymoses in both upper and lower extremity. CHEST: Decreased breath sounds. No wheezing. CARDIAC: Normal S1 and S2. No gallops. ABDOMEN: No masses. LABORATORY DATA: White count 48,000, hemoglobin and hematocrit 15 and 47, platelet count is 290, and 68 segs. He had a blood gas done apparently venous, PO2 79, pCO2 38. Sodium was 143, BUN and creatinine are normal. Anion gap of 26. DIAGNOSTIC DATA: Chest x-ray showed mild cardiomegaly, but no obvious infiltrates. CT brain showed previously described and noted right temporal lobe consistent with previous cerebrovascular accident, stroke, hemorrhage. IMPRESSION: 1. Status post seizure activity. 2. Status post cerebrovascular accident with left-sided weakness. 3. Respiratory failure, improved. 4. Coronary artery disease. 5. Hypothyroidism. 6. Chronic pain. 7. Depression. 8. Leukocytosis. PLAN: He has significant leukocytosis probably as urinary tract infection, recurrent. I may consider starting empiric antibiotics. Supportive care. He is a DNR. TIME SPENT: This is a consultation note, 70 minutes, of which 50% in direct patient care. Job ID: [id number]
[2018-11-07 04:11] VITALS: BMI 30.3
--- NOTE | 2018-11-07 04:14 | HP ---
CHIEF COMPLAINT: Seizure. HISTORY OF PRESENT ILLNESS: This patient is an 88-year-old male who is transferred from [facility]. This patient has a history of CVA back in March, which unfortunately resulted in a hemorrhagic conversion in the right parietotemporal area and right MCA distribution. The patient has had some persistent left-sided weakness since that time. The patient went to rehab, but unfortunately, had some complications including cholecystitis, which set him back a bit. He also developed some autonomic dysfunction with drops in his blood pressure causing him some [id number] episodes in the past as well. The patient was in [facility] getting rehab and was making some progress after his orthostasis was improved with the use of midodrine. The patient was receiving rehab today when he experienced witnessed grand mal seizures. He was taken to the emergency department in [place]. There, the patient was profoundly postictal and he did well; however, he was DNR status and therefore, he was not intubated. Blood gas was obtained and his pH was profoundly low at 7.10 with a pCO2 of 58 and pO2 of 188. His EKG showed some left bundle-branch block. He was subsequently transferred to our facility for further management and workup. Of note, his chest x-ray there was clear and his CT brain showed no new findings and only evolution of the old prior infarct. On arrival to our facility, the patient had a repeat blood gas with a pH of 7.31, pCO2 of 39. At the time of my exam, the patient is unable to give any additional history. REVIEW OF SYSTEMS: Review of systems is unobtainable. Working with his prior admission records, the patient has the above-mentioned history of CVA, hemorrhagic conversion and persistent left-sided weakness. He has a history of atrial fibrillation, hypertension, BPH, hypothyroidism, chronic arthritis, pains, and orthostatic hypotension. PAST SURGICAL HISTORY: Cholecystectomy, right shoulder replacement, cataract ectomy, thyroid surgery, and right colectomy for polyp. FAMILY HISTORY: None known. SOCIAL HISTORY: The patient lives at the [facility]. No history of alcohol or tobacco abuse. He is a DNR and his daughter, Nidia Morrellbud, who is a barn manager in [place], is his surrogate decision maker, her number is #[phone]. ALLERGIES: PENICILLINS. HOME MEDICATIONS: Not yet obtained. The patient was previously on; 1. Flomax. 2. Zoloft. 3. Azo standard. 4. Ditropan. 5. Lopressor. 6. Zestril. 7. Synthroid. 8. Lorazepam. 9. [place]. 10. Atorvastatin. 11. Aspirin. 12. Calcium. 13. He has had the midodrine added as well. We will work to get full records from the nursing facility at [place], recommend to get him resumed on his usual medicines as soon as those can be identified and he is fully awake enough to tolerate that. PHYSICAL EXAMINATION: VITAL SIGNS: Temperature is 99.1, pulse 78, respirations 16, O2 saturation 99% on room air, and blood pressure is 124/68. GENERAL APPEARANCE: The patient, at the time my exam, was on BiPAP. He did have some spontaneous movement and would respond somewhat to external stimuli, but would not make eye contact and is not conversant. His pupils were reactive. He had no OP lesions. NECK: Supple. HEART: Regular rate and rhythm without murmurs. LUNGS: Clear with minimal diminished breath sounds at the bases. ABDOMEN: Soft, nontender, and nondistended. Positive bowel sounds. No masses. No organomegaly. EXTREMITIES: The right upper extremity from about the mid upper arm down is generally ecchymotic, appears to be more chronic than fresh. He also has some sarcopenia of the left upper extremities. Lower extremities have no edema. EKG shows left bundle-branch block, which is apparently not new. LABORATORY DATA: White count is 48.7, hemoglobin 15.2, platelet count 290, neutrophils 68, 2% bands, and 28% lymphocytes. INR is 1.0. Sodium 140, potassium 3.6, chloride 103, CO2 of 15, BUN 30, creatinine is 1.21, glucose 198, albumin 4.1, globulin 1.8. Troponin less than 0.01. IMPRESSION AND PLAN: 1. Seizure. Strongly suspect this is simply related to his prior cerebrovascular accident with hemorrhagic conversion for March. The patient also has some history of orthostasis, which could induce some seizure and also possibly could have had a new stroke, although the initial CT scan does not reveal that. The patient received a dose of Ativan in the emergency department at [place]. I will give him p.r.n. Ativan to use here if that becomes necessary. We will also start him on Keppra. We will consult Neurology. 2. Severe leukocytosis. Suspect this is related to the patient's chronic lymphocytic leukemia and some demargination. 3. Acute respiratory failure, I believe the patient was simply profoundly postictal and hence he has become more alert. His breathing is starting to improve. We will go ahead and consult Pulmonology. We will admit the patient to the [facility]. 4. History of hypertension with more recent onset of orthostatic hypotension. The patient follows with Dr. Chauhan, his claim attorney. He apparently does not have any coronary artery disease per se. We will need to certainly obtain an appropriate and correct medication list to get him back all of his usual medications. 5. History of hypothyroidism. We will continue that once he is capable of adequately taking p.o. 6. We will talk to the patient's daughter and POA for update on his situation. Job ID: [id number]
[2018-11-07] MEDS: Sodium Chloride 0.9% 1,000 ML IV SCH ×2 (04:50→18:06)
[2018-11-07 05:07] LABS: ALT (SGPT) 18 U/L (8-55); AST (SGOT) 19 U/L (5-34); Albumin 3.4 g/dL (3.4-4.8); Alkaline Phosphatase 59 U/L (40-150); Anion Gap 11 mmol/L (10-20); BUN (Urea Nitrogen) 26 mg/dL (8.4-25.7); Calc. Creatinine Clearance 90 mL/min (70-130); Carbon Dioxide 23 mmol/L (23-31); Chloride 107 mmol/L (98-107); Estimated GFR-MDRD 88; Globulin 1.9 g/dL (2.4-3.5); Glucose 105 mg/dL (83-110); Potassium 4.2 mmol/L (3.5-5.1); Protein, Total 5.3 g/dL (5.8-8.1); Sodium 137 mmol/L (136-145)
[2018-11-07 05:13] LABS: Bilirubin Negative (Negative); Blood, Urine Small (Negative); Clarity CLEAR (Clear); Glucose, Urine (Dipstick) Negative (Negative); Leukocyte Small (Negative); Nitrite Positive (Negative); Protein, Urine (Dipstick) Trace mg/dL (Neg-Trace)
[2018-11-07 05:18] LABS: Hyaline Casts/LPF 0-3 HYALINE CAST LPF (0-3 Hyaline); Pathc Cast-AUWi Flag 0.29 (0-2.49); Squamous Epithelial 0-3 HPF (0-3)
[2018-11-07 05:32] LABS: Band 8 % (5-11); Hemoglobin 13.8 g/dL (14.0-18.0); Lymphocytes 18 % (21-51); MDiff Complete? YES; Mean Corpuscular HGB CONC 33.1 g/dL (32.0-36.0); Mean Corpuscular Hemoglobin 31.4 pg (27.0-31.0); Mean Corpuscular Volume 95.1 fL (78.0-98.0); Mean Platelet Volume 6.3 fL (7.4-10.4); Monocytes 5 % (0-10); Neutrophil 69 % (42-75); Platelet Count 167 thou/uL (130-400); RBC Distribution Width 13.1 % (11.5-14.5); Red Blood Cell (RBC) Count 4.38 mill/uL (4.70-6.10); White Blood Cell (WBC) Count 22.1 thou/uL (4.8-10.8)
[2018-11-07 05:48] LABS: Yeast-AUWi Flag 68.6 (0-25.0)
[2018-11-07 06:31] LABS: Yeast-All Forms 1+ HPF (None Seen)
[2018-11-07 06:35] LABS: Bacteria/HPF 1+ HPF (None Seen)
[2018-11-07] MEDS ORDERED: Prevnar 13-Val Conj/PF 0.5 ML SYRINGE IM ONE (09:00)
[2018-11-07] MEDS ORDERED: Nitroglycerin 0.4 MG TAB (25 Tab Bottle) SL PRN (10:47)
[2018-11-07] MEDS ORDERED: Acetaminophen 325 MG TAB PO PRN (11:06)
[2018-11-07] MEDS ORDERED: Aspirin 81 mg Enteric Coated Tablet PO SCH (11:15)
[2018-11-07] MEDS ORDERED: Oxybutynin ER 5 MG TAB PO SCH (11:15)
--- NOTE | 2018-11-07 11:36 | ULT ---
BILATERAL LOWER EXTREMITY VENOUS ULTRASOUND: Comparison: None. History: Left lower extremity edema. Technique: Multiplanar grayscale and color doppler images were obtained in a bilateral lower extremit y venous ultrasound. Spectral analysis of the doppler waveforms were performed. FINDINGS: The bilateral common femoral vein, profunda femoral veins, superficial femoral veins, and popliteal v eins are normal in appearance without visible thrombus. These vessels demonstrate normal compression, flow, and augmentation. The posterior tibial veins and greater saphenous veins are also patent. IMPRESSION: No evidence of DVT. POS: [place]
[2018-11-07] MEDS: Acetaminophen/Codeine 30-300mg Tablet PO PRN (14:41)
[2018-11-07] MEDS: Midodrine HCl 5 MG TAB PO SCH ×2 (14:41→21:14)
[2018-11-07] MEDS: cefTRIAXone\\ROCEPHIN 1 GM in Sodium Chloride 0.9% 100 ML IVPB SCH (18:06)
[2018-11-07] MEDS ORDERED: levETIRAcetam 500 MG TAB PO SCH (21:00)
--- NOTE | 2018-11-07 21:47 | PDOC.PN ---
- Subjective Encounter Start Date: 11/07/18 Encounter Start Time: 10:30 Does not recall the events of yesterday. Has no other complaints. - Objective Resuscitation Status - Order Detail: 11/06/18 16:08 Resuscitation Status Routine Resuscitation Status: DNAR: NO Resuscitation Discussed with: Patient's daughter / POA Vital Signs & Weight: Vital Signs (12 hours) Temp Pulse Pulse Pulse Resp BP BP 11/07/18 15:08 98.1 F 76 16 11/07/18 13:20 65 116/92 H 11/07/18 11:45 99.0 F 71 18 11/07/18 11:15 68 66 112/62 98/51 L BP Pulse Ox Pulse Ox 11/07/18 15:08 119/90 94 L 11/07/18 13:20 96 11/07/18 11:45 119/60 98 11/07/18 11:15 Weight Weight 223 lb 9.6 oz I&O: 11/06/18 11/07/18 11/08/18 06:59 06:59 06:59 Intake Total 933 1300 Output Total 50 Balance 883 1300 Result Diagrams: 11/07/18 04:28 11/07/18 04:28 Phys Exam - Physical Examination Constitutional: NAD Respiratory: no wheezing, no rales, no rhonchi Cardiovascular: no significant murmur, irregular Gastrointestinal: soft, non-tender, no distention, positive bowel sounds Musculoskeletal: no edema Left hemiplegia. Deviation from normal: Still a little encephalopathic and groggy, but oriented. Skin: normal turgor Dx/Plan (1) Seizure Code(s): R56.9 - UNSPECIFIED CONVULSIONS Status: Acute Comment: Likely related to the hx of stroke with hemorrhagic conversion. Had ativan, the started on Keppra. Post-ictal. Neuro consult pending. (2) History of CVA (cerebrovascular accident) Code(s): Z86.73 - PRSNL HX OF TIA (TIA), AND CEREB INFRC W/O RESID DEFICITS Status: Acute Comment: Hemorrhagic conversion. Residual left hemiplegia. (3) Orthostatic hypotension Code(s): I95.1 - ORTHOSTATIC HYPOTENSION Status: Acute Comment: Has been severe, but improved with midodrine from his tripper, Dr. Chauhan. Concerned that his Tamsulosin may be contributing. May need to be held. Interferes with rehab. (4) Acute respiratory failure Code(s): J96.00 - ACUTE RESPIRATORY FAILURE, UNSP W HYPOXIA OR HYPERCAPNIA Status: Acute Comment: Post-ictal phase. Resolved spontaneously. (5) Demand ischemia of myocardium Code(s): I24.8 - OTHER FORMS OF ACUTE ISCHEMIC HEART DISEASE Status: Acute Comment: Related to the post-ictal respiratory failure. (6) Afib Code(s): I48.91 - UNSPECIFIED ATRIAL FIBRILLATION Status: Chronic Qualifiers: Atrial fibrillation type: chronic Qualified Code(s): I48.2 - Chronic atrial fibrillation (7) CLL (chronic lymphocytic leukemia) Code(s): C91.90 - LYMPHOID LEUKEMIA, UNSPECIFIED NOT HAVING ACHIEVED REMISSION Status: Chronic Comment: WBC initially higer due to demargination. Back to baseline. (8) HTN (hypertension) Code(s): I10 - ESSENTIAL (PRIMARY) HYPERTENSION Status: Chronic Qualifiers: Hypertension type: essential hypertension Qualified Code(s): I10 - Essential (primary) hypertension (9) Hypothyroidism Code(s): E03.9 - HYPOTHYROIDISM, UNSPECIFIED Status: Chronic Qualifiers: Hypothyroidism type: unspecified Qualified Code(s): E03.9 - Hypothyroidism , unspecified - Plan * Neuro Consult pending. * H[employer] primo campuzano. Recommended pureed and thin liquids. Continue to assess. * PT. * Continue to communicate with patient's daughter and son.
--- NOTE | 2018-11-08 01:08 | PRG ---
DATE OF SERVICE: 11/07/2018 NEUROLOGY FOLLOWUP NOTE REFERRING PHYSICIAN: Hospitalist Service. HISTORY OF PRESENT ILLNESS: Mr. Flores [facility] after having a witnessed seizure. The seizure was preceded by complaints of chest pain and significant elevation in blood pressure. He was given 2 doses of Nitrostat, and the chest pain apparently improved, but only to be followed by generalized tonic-clonic seizure. He was taken to the ER for evaluation, and a CT revealed evidence of his prior stroke in the right temporal region. He has since regained his consciousness and is nearly back to his baseline from a cognitive perspective. He complains of feeling a little fuzzy, but no complaints of new weakness. He had some residual left-sided weakness from his prior stroke. I discussed the situation with his daughter, who is a circuit manager. We discussed the pros and cons of anticonvulsant therapy and decided to go with Keppra 500 mg twice a day for maintenance dose. I will follow up with him in the office in 2 months. Job ID: [id number]
[2018-11-08] MEDS: Levothyroxine Sodium 125 MCG TAB PO SCH (05:31)
--- NOTE | 2018-11-08 09:07 | PRG ---
DATE OF SERVICE: 11/07/2018 SUBJECTIVE: Mr. Flores came into the hospital. He apparently had seizures. These have been controlled since admission. PAST MEDICAL HISTORY: Remarkable for: 1. Recent right-sided CVA with hemorrhagic conversion and left hemiplegia. Family tells me that he made tremendous progress with rehab and actually walked 200 feet. He stood up and sat down 19 times with physical therapy two days ago. 2. Cholecystitis. 3.Hemorhage after his stroke. 4. History of afib. 5. History of hypertension. 6. History of hypothyroidism, on replacement. 7. History of degenerative arthritis. 8. History of cholecystectomy. 9. History of right shoulder surgery. 10. surgery requiring colectomy. FAMILY HISTORY: Negative for lung disease in early age. SOCIAL HISTORY: Nonsmoker, nondrinker. REVIEW OF SYSTEMS: Ten-point review of system is otherwise negative. Per family , he is slow to respond to questions. PHYSICAL EXAMINATION: GENERAL: Per family, he is slow to respond to questions. VITAL SIGNS: Afebrile. Heart rate 71, respiratory rate 18, blood pressure 116/ 92. HEENT: Sclerae anicteric. NECK: Supple. LUNGS: Clear. HEART: Regular rhythm. No S3. ABDOMEN: Soft and nontender. EXTREMITIES: No clubbing, cyanosis, or edema. ASSESSMENT AND PLAN: Seizure most likely related to recent CVA. He seems to be stable at this time. Will follow. This was a 50 minute consult with greater than 50% of time spent coordinating care. Job ID: [id number] [facility]
[2018-11-08] MEDS: Oxybutynin ER 5 MG TAB PO SCH (09:15)
[2018-11-08] MEDS: Midodrine HCl 5 MG TAB PO SCH ×3 (09:15→20:49)
[2018-11-08] MEDS: Tamsulosin HCl 0.4 MG CAP PO SCH (09:15)
[2018-11-08] MEDS: Aspirin 81 mg Enteric Coated Tablet PO SCH (09:15)
[2018-11-08] MEDS: Sodium Chloride 0.9% 1,000 ML IV SCH (09:15)
[2018-11-08] MEDS: Calcium Carbonate 600 MG TAB PO SCH (09:15)
[2018-11-08] MEDS: Atorvastatin Calcium 20 MG TAB PO SCH (09:15)
[2018-11-08] MEDS: levETIRAcetam 500 MG TAB PO SCH ×2 (09:16→20:48)
[2018-11-08] MEDS: Acetaminophen/Codeine 30-300mg Tablet PO PRN (12:06)
--- NOTE | 2018-11-08 13:23 | PDOC.PN ---
- Subjective Encounter Start Date: 11/08/18 Encounter Start Time: 08:55 Subjective: is watching tv, no sob or palp -: responds well to verbal questions - Objective Resuscitation Status - Order Detail: 11/06/18 16:08 Resuscitation Status Routine Resuscitation Status: DNAR: NO Resuscitation Discussed with: Patient's daughter / POJeyson MARTIN Reviewed: Yes Vital Signs & Weight: Vital Signs (12 hours) Temp Pulse Pulse Pulse Pulse Resp BP 11/08/18 11:01 97.3 F L 73 18 11/08/18 10:48 77 72 73 109/80 11/08/18 08:00 11/08/18 07:28 98.1 F 71 17 11/08/18 03:49 97.1 F L 69 16 BP BP BP Pulse Ox Pulse Ox 11/08/18 11:01 109/80 100 11/08/18 10:48 112/69 95/70 100 11/08/18 08:00 97 11/08/18 07:28 137/71 99 11/08/18 03:49 112/46 L 98 Weight Weight 227 lb I&O: 11/07/18 11/08/18 11/09/18 06:59 06:59 06:59 Intake Total 933 2199 240 Output Total 50 Balance 883 2199 240 Result Diagrams: 11/07/18 04:28 11/07/18 04:28 Phys Exam - Physical Examination HEENT: PERRLA, moist MMs Neck: no JVD, supple Respiratory: no wheezing, no rales Cardiovascular: RRR, no significant murmur Gastrointestinal: soft, non-tender, positive bowel sounds Musculoskeletal: no edema, pulses present severe echymosis over both forearms Neurological: non-focal, moves all 4 limbs Dx/Plan (1) Seizure Code(s): R56.9 - UNSPECIFIED CONVULSIONS Status: Acute Comment: Likely related to the hx of stroke with hemorrhagic conversion, on Keppra. (2) Acute respiratory failure Code(s): J96.00 - ACUTE RESPIRATORY FAILURE, UNSP W HYPOXIA OR HYPERCAPNIA Status: Resolved Comment: Post-ictal phase. Resolved spontaneously. (3) History of CVA (cerebrovascular accident) Code(s): Z86.73 - PRSNL HX OF TIA (TIA), AND CEREB INFRC W/O RESID DEFICITS Status: Chronic Comment: Residual left hemiparesis (4) Demand ischemia of myocardium Code(s): I24.8 - OTHER FORMS OF ACUTE ISCHEMIC HEART DISEASE Status: Acute Comment: Related to the post-ictal respiratory failure. (5) UTI (urinary tract infection) Status: Acute Qualifiers: Urinary tract infection type: acute cystitis Hematuria presence: without hematuria Qualified Code(s): N30.00 - Acute cystitis without hematuria (6) Afib Code(s): I48.91 - UNSPECIFIED ATRIAL FIBRILLATION Status: Chronic Qualifiers: Atrial fibrillation type: chronic Qualified Code(s): I48.2 - Chronic atrial fibrillation (7) CLL (chronic lymphocytic leukemia) Code(s): C91.90 - LYMPHOID LEUKEMIA, UNSPECIFIED NOT HAVING ACHIEVED REMISSION Status: Chronic (8) Dyslipidemia Code(s): E78.5 - HYPERLIPIDEMIA, UNSPECIFIED Status: Chronic (9) HTN (hypertension) Code(s): I10 - ESSENTIAL (PRIMARY) HYPERTENSION Status: Chronic Qualifiers: Hypertension type: essential hypertension Qualified Code(s): I10 - Essential (primary) hypertension (10) Hypothyroidism Code(s): E03.9 - HYPOTHYROIDISM, UNSPECIFIED Status: Chronic Qualifiers: Hypothyroidism type: unspecified Qualified Code(s): E03.9 - Hypothyroidism , unspecified - Plan is on ceftriaxone for uti -: on keppra for seizure, no somnolence, is tolerating well -: continue asp, lipitor, synthroid and midodrine -: may tx to med floor if ok with other specialists -: PT to mobilize as tolerated * . Review of Systems - Medications/Allergies Allergies/Adverse Reactions: Allergies Allergy/AdvReac Type Severity Reaction Status Date / Time Penicillins Allergy Anaphylaxis Verified 09/06/16 15:33 Medications: Current Medications Acetaminophen (Tylenol) 650 mg PO Q4H PRN PRN Reason: Headache/Fever or MILD Pain Acetaminophen/Codeine Phosphate (Tylenol #3) 1 tab PO Q6H PRN PRN Reason: Moderate Pain (4-6) Last Admin: 11/08/18 12:06 Dose: 1 tab Aspirin (Ecotrin) 81 mg PO DAILY [facility] Last Admin: 11/08/18 09:15 Dose: 81 mg Atorvastatin Calcium (Lipitor) 20 mg PO DAILY [facility] Last Admin: 11/08/18 09:15 Dose: 20 mg Calcium Carbonate (Caltrate) 600 mg PO DAILY [facility] Last Admin: 11/08/18 09:15 Dose: 600 mg Cholecalciferol (Vitamin D3) 1,000 units PO DAILY [facility] Last Admin: 11/08/18 09:15 Dose: 1,000 units Sodium Chloride (Normal Saline 0.9%) 1,000 mls @ 75 mls/hr IV .[id number] [facility] Last Admin: 11/08/18 09:15 Dose: 1,000 mls Ceftriaxone Sodium 1 gm/ (Sodium Chloride) 100 mls @ 200 mls/hr IVPB Q24HR [facility] Last Admin: 11/07/18 18:06 Dose: 100 mls Levetiracetam (Keppra) 500 mg PO BID [facility] Last Admin: 11/08/18 09:16 Dose: 500 mg Levothyroxine Sodium (Synthroid) 125 mcg PO 0600 [facility] Last Admin: 11/08/18 05:31 Dose: 125 mcg Lorazepam (Ativan) 1 mg SLOW IVP Q4H PRN PRN Reason: Seizures Midodrine (Proamatine) 5 mg PO TID [facility] Last Admin: 11/08/18 09:15 Dose: 5 mg Nitroglycerin (Nitrostat) 0.4 mg SL Q5MIN PRN PRN Reason: Chest Pain Oxybutynin Chloride (Ditropan Xl) 5 mg PO DAILY [facility] Last Admin: 11/08/18 09:15 Dose: 5 mg Sertraline HCl (Zoloft) 50 mg PO DAILY [facility] Last Admin: 11/08/18 09:15 Dose: 50 mg Sodium Chloride (Flush - Normal Saline) 10 ml IVF Q12HR [facility] Last Admin: 11/08/18 09:16 Dose: Not Given Sodium Chloride (Flush - Normal Saline) 10 ml IVF PRN PRN PRN Reason: Saline Flush Tamsulosin HCl (Flomax) 0.4 mg PO DAILY [facility] Last Admin: 11/08/18 09:15 Dose: 0.4 mg
--- NOTE | 2018-11-08 15:30 | EKG ---
Test Reason : NONRESPONSIVE Blood Pressure : / mmHG Vent. Rate : 069 BPM Atrial Rate : 375 BPM P-R Int : 000 ms QRS Dur : 134 ms QT Int : 462 ms P-R-T Axes : 000 -64 111 degrees QTc Int : 495 ms Atrial fibrillation with a competing junctional pacemaker with premature ventricular or aberrantly co nducted complexes Left axis deviation Non-specific intra-ventricular conduction block Inferior infarct , age undetermined Possible Anterolateral infarct , age undetermined Abnormal ECG Confirmed by YASMINE TOLBERT, PETER ([id number]), art editor ROB MCLAIN ([id number]) on 11/08/2018 3:29:38 PM Referred By: AKDebbie Confirmed By:PETER UNDERWOOD MD
[2018-11-08] MEDS: cefTRIAXone\\ROCEPHIN 1 GM in Sodium Chloride 0.9% 100 ML IVPB SCH (17:20)
--- NOTE | 2018-11-08 17:51 | PRG ---
DATE OF SERVICE: 11/08/2018 SUBJECTIVE: Mr. Flores did reasonably well overnight. He is resting comfortably. OBJECTIVE: VITAL SIGNS: When I saw him this morning, he was afebrile, heart rate 79, respiratory rate is 18, oximetry is 100% on room air, and blood pressure 118 /66. Lungs, heart, and abdomen are unchanged. IMPRESSION: Status post seizure, probably related to a recent cerebrovascular accident. PLAN: I would recommend trying to get him back into rehab as soon as possible. He has yeast in his urine, so his antibiotics can probably be discontinued. One dose of Diflucan probably would take care of the low degree yeast colonization he has. In my opinion, he could be transferred out of the Intermediate Care Unit. Job ID: [id number] [facility]
[2018-11-09] MEDS: Levothyroxine Sodium 125 MCG TAB PO SCH (05:53)
[2018-11-09 07:48] VITALS: BP 181/90; TEMP 98.1
[2018-11-09] MEDS: Midodrine HCl 5 MG TAB PO SCH (08:47)
[2018-11-09] MEDS: Aspirin 81 mg Enteric Coated Tablet PO SCH (08:57)
[2018-11-09] MEDS: Atorvastatin Calcium 20 MG TAB PO SCH (08:57)
[2018-11-09] MEDS: Tamsulosin HCl 0.4 MG CAP PO SCH (08:57)
[2018-11-09] MEDS: levETIRAcetam 500 MG TAB PO SCH (08:57)
[2018-11-09] MEDS: Oxybutynin ER 5 MG TAB PO SCH (08:57)
[2018-11-09] MEDS: Calcium Carbonate 600 MG TAB PO SCH (08:57)
--- NOTE | 2018-11-09 14:06 | PRG ---
DATE OF SERVICE: 11/09/2018 SUBJECTIVE: Mr. Flores has had no further seizures. He has felt to be stable. OBJECTIVE: He is afebrile. Heart rate 82, respiratory rate mid teens, o2 sat is 100%, blood pressure 181/90. He becomes significantly weaker since he has been here, laid up in bed. He will go back to a Longterm Unit for rehab. Lungs are clear. Heart, regular rhythm. LABORATORY DATA: No new lab today. IMPRESSION: Status post seizures after cerebrovascular accident with hemorrhagic conversion. He actually improved dramatically. At the detention, where he was standing up and sitting down 19 times in a row and walking over 200 feet. I do not believe he can walk 20 feet at this point. Hopefully, he will be able to regain strength that he has lost while he has been here. We will see him as needed in the future. Job ID: [id number] [facility]
--- NOTE | 2018-11-09 14:32 | PDOC.PN ---
- Subjective Encounter Start Date: 11/09/18 Encounter Start Time: 09:00 Subjective: no sob, feels good, is watching tv - Objective Resuscitation Status - Order Detail: 11/06/18 16:08 Resuscitation Status Routine Resuscitation Status: DNAR: NO Resuscitation Discussed with: Patient's daughter / POA MARIO Reviewed: Yes Vital Signs & Weight: Vital Signs (12 hours) Temp Pulse Resp BP Pulse Ox 11/09/18 08:00 100 11/09/18 07:47 98.1 F 82 13 181/90 H 100 11/09/18 04:00 97.8 F 79 20 197/97 H 100 Weight Weight 227 lb I&O: 11/08/18 11/09/18 11/10/18 06:59 06:59 06:59 Intake Total 2199 1469 240 Output Total 100 Balance 2199 1369 240 Result Diagrams: 11/07/18 04:28 11/07/18 04:28 Phys Exam - Physical Examination HEENT: PERRLA, moist MMs Neck: no JVD, supple Respiratory: no wheezing, no rales Cardiovascular: RRR, no significant murmur Gastrointestinal: soft, non-tender, positive bowel sounds Musculoskeletal: no edema, pulses present Neurological: non-focal, moves all 4 limbs Psychiatric: A&O x 3 Dx/Plan (1) Seizure Code(s): R56.9 - UNSPECIFIED CONVULSIONS Status: Acute Comment: Likely related to the hx of stroke with hemorrhagic conversion, on Keppra. (2) Acute respiratory failure Code(s): J96.00 - ACUTE RESPIRATORY FAILURE, UNSP W HYPOXIA OR HYPERCAPNIA Status: Resolved Comment: Post-ictal phase. Resolved spontaneously. (3) History of CVA (cerebrovascular accident) Code(s): Z86.73 - PRSNL HX OF TIA (TIA), AND CEREB INFRC W/O RESID DEFICITS Status: Chronic Comment: Residual left hemiparesis (4) Demand ischemia of myocardium Code(s): I24.8 - OTHER FORMS OF ACUTE ISCHEMIC HEART DISEASE Status: Acute Comment: Related to the post-ictal respiratory failure. (5) UTI (urinary tract infection) Status: Acute Qualifiers: Urinary tract infection type: acute cystitis Hematuria presence: without hematuria Qualified Code(s): N30.00 - Acute cystitis without hematuria (6) Afib Code(s): I48.91 - UNSPECIFIED ATRIAL FIBRILLATION Status: Chronic Qualifiers: Atrial fibrillation type: chronic Qualified Code(s): I48.2 - Chronic atrial fibrillation (7) CLL (chronic lymphocytic leukemia) Code(s): C91.90 - LYMPHOID LEUKEMIA, UNSPECIFIED NOT HAVING ACHIEVED REMISSION Status: Chronic (8) Dyslipidemia Code(s): E78.5 - HYPERLIPIDEMIA, UNSPECIFIED Status: Chronic (9) HTN (hypertension) Code(s): I10 - ESSENTIAL (PRIMARY) HYPERTENSION Status: Chronic Qualifiers: Hypertension type: essential hypertension Qualified Code(s): I10 - Essential (primary) hypertension (10) Hypothyroidism Code(s): E03.9 - HYPOTHYROIDISM, UNSPECIFIED Status: Chronic Qualifiers: Hypothyroidism type: unspecified Qualified Code(s): E03.9 - Hypothyroidism , unspecified - Plan hemostable -: macrobid x 4 days -: march dc to snf * .
--- NOTE | 2018-11-09 15:52 | DIS ---
DATE OF ADMISSION: 11/06/2018 DATE OF DISCHARGE: 11/09/2018 DISCHARGE DISPOSITION: [facility] [place]. 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 Acute encephalopathy and acute respiratory failure secondary to seizures and postictal phase, both of which have resolved. Prior history of cerebrovascular accident with left hemiparesis; demand ischemia due to seizure; chronic atrial fibrillation, rate controlled; urinary tract infection; history of chronic lymphocytic leukemia; dyslipidemia; hypertension; and hypothyroidism. PROCEDURES DONE DURING HOSPITALIZATION: Chest x-ray done showed mild pulmonary vascular congestion with cardiomegaly. CT of brain done showed age-appropriate atrophy. There are malacic changes seen in the right temporal lobe compatible with evolutionary changes from prior CVA. Bilateral lower extremity venous ultrasound done showed no evidence of DVT. He had a white count of 48 with discharge white count of 22. Please note, the patient has history of CLL, platelet count 167. Hemoglobin and hematocrit of 13 and 41, with 69% neutrophils, 8% bands, and 18% lymphocytes. Discharge BUN and creatinine are 26 and 0.8. Troponin I indeterminate, peaking up to 0.05. BUN and creatinine were 30 and 1.2 on the day of admission. BNP 155. Albumin is 4.1. Urine culture grew yeast species. DISCHARGE MEDICATIONS: 1. Aspirin 81 mg p.o. daily. 2. Lipitor 20 mg p.o. daily. 3. Calcium 600 mg p.o. daily. 4. Synthroid 125 mcg p.o. daily. 5. Midodrine 5 mg p.o. 3 times daily. 6. Multivitamin one tablet once daily. 7. Oxybutynin extended release 5 mg daily. 8. Azo-Standard 97.5 mg p.o. 3 times daily. 9. Sertraline 50 mg p.o. daily. 10. Flomax 0.4 mg daily. 11. Keppra 500 mg p.o. twice daily. 12. Macrobid 100 mg p.o. twice daily for 5 days. ALLERGIES: PENICILLIN. INPATIENT CONSULT: Dr. Holliday for Pulmonology and Dr. Knutson for Neurology. BRIEF COURSE DURING HOSPITALIZATION: The patient initially was sent from halfway. The patient had witnessed grand mal seizures at [facility] and was sent to [facility] from where he was transferred here. He has known history of hemorrhagic CVA with left-sided weakness. In view of this history, the patient was admitted to [facility]. The patient also was briefly on BiPAP due to postictal phase and acute respiratory failure. He was profoundly postictal per initial H and P and documentation. He was evaluated by Dr. Martines/Miya for Pulmonology, Dr. Knutson for Neurology. He was placed on Keppra and has done remarkably well. He is eating and drinking well. The patient needs to further recuperate back at the rehab and will be shortly discharged back there. He was also found to have a fungal UTI and was given a dose of fluconazole. He will also be placed on Macrobid twice daily for a total of 5 days. He was hemodynamically and neurologically stable prior to discharge. Please see a [id number]. A total of 35 minutes was spent on discharge plan. Job ID: [id number]
== END 2018-11-09 12:15 | DRG 100 ==
LOC: ERS 13:33 → ERHOLD 15:11 → IMCU/EMU 17:16
PROVIDERS: ADMIT Internal Medicine; ATTEND Internal Medicine
DX: R56.9 Unspecified convulsions (principal); J96.00 Acute respiratory failure, unspecified whether with hypoxia or hypercapnia; C91.10 Chronic lymphocytic leukemia of B-cell type not having achieved remission; I69.354 Hemiplegia and hemiparesis following cerebral infarction affecting left non-dominant side; I24.8 Other forms of acute ischemic heart disease; N39.0 Urinary tract infection, site not specified; I69.398 Other sequelae of cerebral infarction; I10 Essential (primary) hypertension; I95.1 Orthostatic hypotension; E03.9 Hypothyroidism, unspecified; I48.2 Chronic atrial fibrillation; E78.5 Hyperlipidemia, unspecified; Z79.899 Other long term (current) drug therapy; Z79.82 Long term (current) use of aspirin; Z88.0 Allergy status to penicillin; F32.9 Major depressive disorder, single episode, unspecified; G89.29 Other chronic pain
CPT/HCPCS: 36415; 80053; 81001; 82805; 83605; 85025; 87086; 93005; 93970; 94660; G8978-GP-CL; G8979-GP-CK; G8987-GO-CL; G8988-GO-CI; J0696; J1953; J7050

== ENCOUNTER 2019-03-11 15:14 | Inpatient (IN) | payer MEDICARE, BC ==
[~2019-03-11 15:14] MED LIST: ISOVUE-370 76%-LOCM 1 ML ONE
--- NOTE | 2019-03-11 15:52 | RAD ---
EXAM: XR Chest 1 View Portable PROVIDED CLINICAL HISTORY: Dyspnea COMPARISON: 11/06/2018 FINDINGS: Cardiac silhouette remains enlarged. Vascular calcification involves the aortic arch. Mild elevation of the right hemidiaphragm. Postoperative change involving right glenohumeral joint. Advanced left glenohumeral arthrosis. No focal consolidation, pleural fluid or pneumothorax apparent. IMPRESSION: No evidence for an acute cardiopulmonary process.
[2019-03-11 16:18] LABS: Hemoglobin 10.8 g/dL (14.0-18.0); Mean Corpuscular HGB CONC 32.5 g/dL (32.0-36.0); Mean Corpuscular Hemoglobin 30.4 pg (27.0-31.0); Mean Corpuscular Volume 93.5 fL (78.0-98.0); Mean Platelet Volume 6.7 fL (7.4-10.4); Platelet Count 210 thou/uL (130-400); RBC Distribution Width 12.5 % (11.5-14.5); Red Blood Cell (RBC) Count 3.54 mill/uL (4.70-6.10); White Blood Cell (WBC) Count 15.6 thou/uL (4.8-10.8)
[2019-03-11 16:19] LABS: Actual Bicarbonate (HCO3a) 35.3 mEq/L (22-28); Analyzer IN Cardio ER; Base Excess (BEa) 9.6 mEq/L (-2.0 to +3.0); CO2 Tension 53.5 mmHg (35.0-45.0); Calcium, Ionized 1.17 mmol/L (1.12-1.30); Carboxyhemoglobin (COHb) 2.8 gm% (0.0-3.0); Potassium - ABG Lab 3.26 mmol/L (3.70-5.30); pH, Arterial 7.44 (7.35-7.45)
[2019-03-11 16:25] LABS: O2 Tension (PaO2) 24.5 mmHg (> 60.0); Puncture Site RB
[2019-03-11 16:40] LABS: ALT (SGPT) 13 U/L (8-55); AST (SGOT) 18 U/L (5-34); Alkaline Phosphatase 81 U/L (40-150); Anion Gap 12 mmol/L (10-20); BUN (Urea Nitrogen) 29 mg/dL (8.4-25.7); Bilirubin, Total 0.8 mg/dL (0.2-1.2); CK (CPK) 42 U/L (30-200); Calc. Creatinine Clearance 0 mL/min (70-130); Calcium 9.3 mg/dL (7.8-10.44); Carbon Dioxide 32 mmol/L (23-31); Chloride 98 mmol/L (98-107); Estimated GFR-MDRD 30; Globulin 2.5 g/dL (2.4-3.5); Glucose 114 mg/dL (83-110); Lipase 23 U/L (8-78); Potassium 3.2 mmol/L (3.5-5.1); Protein, Total 5.5 g/dL (5.8-8.1); Sodium 139 mmol/L (136-145)
[2019-03-11 16:42] LABS: Band 5 % (5-11); Lymphocytes 3 % (21-51); MDiff Complete? YES; Monocytes 3 % (0-10); Neutrophil 89 % (42-75); Platelet Morphology Comment Appears Adequate
[2019-03-11 16:51] LABS: Bilirubin Negative (Negative); Blood, Urine Trace (Negative); Clarity CLOUDY (Clear); Glucose, Urine (Dipstick) Negative (Negative); Leukocyte Large (Negative); Nitrite Positive (Negative); Protein, Urine (Dipstick) 30 mg/dL (Neg-Trace)
[2019-03-11 16:54] LABS: Hyaline Casts/LPF 4-6 HYALINE CAST LPF (0-3 Hyaline); Pathc Cast-AUWi Flag 1.22 (0-2.49); Squamous Epithelial 0-3 HPF (0-3)
[2019-03-11 16:55] LABS: Yeast-AUWi Flag 104.3 (0-25.0)
[2019-03-11 17:08] LABS: Bacteria/HPF 2+ HPF (None Seen); RBC/HPF 0-3 HPF (0-3); Yeast-All Forms 1+ HPF (None Seen)
--- NOTE | 2019-03-11 18:15 | CT ---
CT arteriogram chest with IV contrast and 3-D MIP imaging HISTORY: Chest pain. Dyspnea. COMPARISON: 01/01/2014. FINDINGS: There is good contrast opacification of pulmonary arteries. Contrast has not yet reached th e aorta at the time of imaging. Small amount of pericardial fluid. Nonspecific lymph nodes throughout the mediastinum. Bovine origin of the great vessels at the aortic arch. Arterial calcifica tion including coronary arteries. Moderate atelectasis at the lung bases. No evidence of pneumothorax. Distention of the right renal co llecting system and proximal ureter partially visualized. IMPRESSION: No CT evidence of pulmonary embolus. Atherosclerosis.
[2019-03-11] MEDS ORDERED: Acetaminophen 500 MG TAB ONE (19:27)
--- NOTE | 2019-03-11 20:10 | CT ---
CT abdomen and pelvis noncontrast HISTORY: Right flank pain. COMPARISON: 12/28/2014. FINDINGS: Contrast is present within the urinary collecting system from recent CT chest. There is mil d distention of the right renal collecting system and ureter to the level of a 0.3 cm calculus within the distal right ureter. Contrast is present throughout the left renal collecting system and u reter and the upper portion of the right renal collecting system. Contrast opacification precludes evaluation for other urinary tract calculi. Calcification throughout the arterial structures. Lack of current IV contrast limits evaluation of th e soft tissues. Fecal distention of the rectum up to 7.9 cm. IMPRESSION: Partial obstruction at a 3 mm distal right ureteral calculus. Fecal impaction at the rectum. Atherosclerosis.
[2019-03-11] MEDS ORDERED: Lorazepam 2 MG/ML VIAL SLOW IVP PRN (21:28)
[2019-03-11] MEDS ORDERED: hydrALAZINE 20 MG/ML VIAL SLOW IVP PRN (21:28)
[2019-03-11] MEDS ORDERED: Acetaminophen 325 MG TAB PO PRN (21:28)
[2019-03-11] MEDS ORDERED: Potassium Chloride 20 MEQ TAB PO SCH (21:28)
[2019-03-11] MEDS: Midodrine HCl 5 MG TAB PO SCH (22:14)
[2019-03-11] MEDS: levETIRAcetam 500 MG TAB PO SCH (22:14)
[2019-03-11] MEDS: Sodium Chloride 0.9% 1,000 ML IV SCH (22:15)
[2019-03-11 22:18] VITALS: BMI 31.0
[2019-03-11] MEDS ORDERED: Vancomycin HCl 1 GM in Premix Bag 1 BAG IVPB SCH (22:30)
[2019-03-11] MEDS: Vancomycin HCl 1 GM in Premix Bag 1 BAG IVPB SCH (22:39)
--- NOTE | 2019-03-12 02:07 | HP ---
PRIMARY CARE PHYSICIAN: Unknown. CHIEF COMPLAINT: "Was feeling bad and weak and I couldn't get off the bedside commode." HISTORY OF PRESENT ILLNESS: Mr. Flores is a very pleasant 89-year-old gentleman, who has a history of a hemorrhagic stroke in the right MCA distribution back in 03/2018 and then more recently developed a seizure back in October. He says that he does have some residual left-sided weakness, but got to the point of being able to walk with a walker and go to the bedside commode with some assistance. He says that in the last couple of days, he has been feeling kind of weak and a little bit nauseated and he says he got to the bedside commode, but could not get up and this was unusual for him. He also has been having some diarrhea off and on and due to his weakness, they brought him to the emergency room for evaluation. There, he was noted to be somewhat hypoxic as well as found to have findings consistent with urinary tract infection and is being admitted for further evaluation and treatment. He was also found to have an elevated creatinine above his baseline. Other than having some diarrhea, which he says alternates with constipation, he has no complaints. He says that he is typically constipated, then gets MiraLAX, and then will have diarrhea and then they will stop the MiraLAX and then he will get constipated again. He also notes some fever off and on, but no burning or dysuria. No hematuria. REVIEW OF SYSTEMS: All systems were reviewed and were negative except for that mentioned in the history of present illness. PAST MEDICAL HISTORY: Significant for cerebrovascular accident, which was hemorrhagic in the right MCA distribution, which resulted in some left-sided weakness. Also had seizure disorder, atrial fibrillation, hypertension, hypothyroidism, BPH, and arthritis. PAST SURGICAL HISTORY: He has had a cholecystectomy, right shoulder replacement surgery, cataract surgery, thyroid surgery, and a right colectomy for polyp. ALLERGIES: TO PENICILLIN. SOCIAL HISTORY: He resides in the [facility]. He is , has 2 children. His daughter is a physician in [place] and she is a yarn inspector and her name is Dr. Nidia Loyola and she is his medical power of attorney general. He would like to be a DNR. He has another son, who lives in [place]. He is a nonsmoker and nondrinker. FAMILY HISTORY: No history of any heritable diseases. He says his mother lived to be 96 and grandmother lived to be 97. CURRENT MEDICATIONS: Include, 1. Ditropan 5 mg once a day. 2. Lipitor 20 mg daily. 3. Flomax 0.4 mg daily. 4. Levothyroxine 150 mcg daily. 5. Sertraline 75 mg once a day. 6. Midodrine 10 mg three times a day. 7. Aspirin 81 mg daily. 8. Calcium carbonate 600 mg once a day. 9. Multivitamin once daily. 10. Gabapentin 100 mg daily. 11. Lasix 40 mg daily. 12. MiraLAX 17 g daily. 13. Zinc 220 mg daily. 14. Keppra 500 mg twice a day. 15. Vitamin C two tablets daily. PHYSICAL EXAMINATION: GENERAL: He is alert and oriented to person, place, and time. He appears chronically ill and very frail. VITAL SIGNS: Blood pressure was 104/67, heart rate 86, respiratory rate of 20, and temperature is 101.9 at its peak. HEENT: His pupils are equal, round, and reactive. Extraocular muscles are intact. His sclerae are anicteric. Throat, he has dry mucous membranes. There is no erythema. NECK: There is no adenopathy. No bruits. LUNGS: Clear to auscultation. There are some mild expiratory crackles at the bases, but no wheezing, no rhonchi. CARDIOVASCULAR: He has a normal S1 and S2. I did not appreciate an S3 or S4. He does have a grade 2/6 systolic murmur. ABDOMEN: Obese. It is soft. It is nontender and nondistended. Positive for bowel sounds. No rebound. No guarding. No organomegaly. EXTREMITIES: On his extremities, there is edema bilaterally in both upper and lower extremities. He has got quite a bit of bruising on both the upper and lower extremities and some skin tears on his arms. NEUROLOGIC: His cranial nerves 2 through 12 are grossly intact. His muscle strength; he is slightly weaker on the left than on the right, but it is 5/5 in both the upper and lower extremities. SKIN AND INTEGUMENT: Again, he has multiple skin tears and some edema. LABORATORY DATA: Sodium was 139, potassium 3.2, chloride is 98, CO2 is 32, BUN of 29, creatinine 2.07, and glucose is 114. Natriuretic peptide is 465. White blood cell count 15.6, hemoglobin 10.8, hematocrit is 33.1, and platelet count was 210. D-dimer was 3.09. He had a blood gas, it appears to be venous; the pH was 7.4, PO2 of 24.5, and pCO2 is 53.5. Urinalysis was nitrite positive, large leukocyte esterase, too numerous to count wbc's, and 2+ bacteria. ASSESSMENT AND PLAN: 1. Mr. Flores is a pleasant 89-year-old gentleman, who presented to the emergency room with generalized weakness and findings consistent with urinary tract infection. I suspect this is the reason for his symptoms. He had fever. He has an elevated white blood cell count, but this could be attributed to chronic lymphocytic leukemia as he has a history of this. He will be admitted to telemetry and started on broad-spectrum IV antibiotics. We will follow up on blood and urine cultures. 2. History of hemorrhagic cerebrovascular accident. Continue PT and OT as well as his statin. 3. Seizure disorder. Continue Keppra as well as seizure precautions. 4. History of atrial fibrillation, his heart rate is controlled. He is currently not on any anticoagulation likely due to his recent hemorrhagic stroke. 5. Hypertension. Currently, his blood pressure appears controlled. We will place him on p.r.n. medications as needed. 6. Acute kidney injury. I suspect this is likely due to volume depletion and we will be placing him on IV fluids and re-check his creatinine in the a.m. If there is no improvement, then consider Nephrology consultation. Job ID: [id number]
[2019-03-12] MEDS: Levothyroxine Sodium 125 MCG TAB PO SCH (05:41)
[2019-03-12] MEDS ORDERED: Ondansetron PF 4 MG/2 ML Vial IVP PRN (06:06)
[2019-03-12] MEDS ORDERED: Ondansetron ODT 4 MG TAB PO PRN (06:06)
[2019-03-12 07:47] LABS: #Basophils 0.1 thou/uL (0.0-0.2); #Eosinphils 0.1 thou/uL (0.0-0.7); #Lymphocytes 1.5 thou/uL (1.20-3.40); #Neutrophils 14.1 thou/uL (1.40-6.50); %Basophils 0.5 % (0.0-1.0); %Eosinophils 0.9 % (0.0-10.0); %Lymphocytes 8.7 % (21.0-51.0); Hemoglobin 9.8 g/dL (14.0-18.0); Mean Corpuscular HGB CONC 30.2 g/dL (32.0-36.0); Mean Corpuscular Hemoglobin 29.3 pg (27.0-31.0); Mean Corpuscular Volume 97.2 fL (78.0-98.0); Mean Platelet Volume 6.7 fL (7.4-10.4); Platelet Count 188 thou/uL (130-400); RBC Distribution Width 12.8 % (11.5-14.5); Red Blood Cell (RBC) Count 3.35 mill/uL (4.70-6.10); White Blood Cell (WBC) Count 16.8 thou/uL (4.8-10.8)
[2019-03-12 07:58] LABS: Anion Gap 12 mmol/L (10-20); BUN (Urea Nitrogen) 25 mg/dL (8.4-25.7); Calc. Creatinine Clearance 43 mL/min (70-130); Calcium 8.6 mg/dL (7.8-10.44); Carbon Dioxide 26 mmol/L (23-31); Chloride 103 mmol/L (98-107); Estimated GFR-MDRD 37; Glucose 111 mg/dL (83-110); Potassium 3.3 mmol/L (3.5-5.1); Sodium 138 mmol/L (136-145)
[2019-03-12] MEDS: Acetaminophen/Codeine 30-300mg Tablet PO PRN ×2 (09:47→20:25)
[2019-03-12] MEDS: levETIRAcetam 500 MG TAB PO SCH ×2 (09:49→21:00)
[2019-03-12] MEDS: Midodrine HCl 5 MG TAB PO SCH ×3 (09:50→21:00)
[2019-03-12] MEDS: Atorvastatin Calcium 20 MG TAB PO SCH (09:50)
[2019-03-12] MEDS: Famotidine 20 MG TAB PO SCH (09:50)
[2019-03-12] MEDS: Aspirin 81 mg Enteric Coated Tablet PO SCH (09:50)
[2019-03-12] MEDS: Tamsulosin HCl 0.4 MG CAP PO SCH (09:50)
--- NOTE | 2019-03-12 14:00 | RAD ---
KUB: HISTORY: Flank pain and hematuria. FINDINGS: The bowel gas pattern is nonobstructed. There are marked arthritic changes of the spine and hips. R esidual contrast from previous CT is present, with moderate right-sided hydronephrosis and hydrourete r noted. The bladder is also distended with contrast. IMPRESSION: Moderate right-sided hydronephrosis. The right ureter is somewhat difficult to visualize, but it whyte s appear to be dilated at least to the pelvic brim. It is obscured by the distended bladder, in the pelvis region. POS: [facility]
[2019-03-12] MEDS: Sodium Chloride 0.9% 1,000 ML IV SCH (14:48)
--- NOTE | 2019-03-12 14:56 | CON ---
DATE OF CONSULTATION: 03/12/2019 REASON FOR CONSULTATION: 1. Right ureteral calculus. 2. Elevated white blood cell count. HISTORY OF PRESENT ILLNESS: Mr. 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 He presents on this hospital admission with generalized weakness. He has a recent history of a stroke in March 2018 and a seizure in October 2018. The patient has residual left-sided weakness, but was formally able to walk. He was not able to walk when he was in his care center recently. Mr. 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 The patient at the present time is only complaining of pain in his elbows on each side and in his knees and right leg. He does not report any abdominal pain and reports that although he has had some chronic back pain, his symptoms today are no different than they have been in for many years. He does not report nausea, vomiting, or specific genitourinary tract symptoms. He does report a history of recurrent urinary tract infection as well as BPH, which is treated with tamsulosin. REVIEW OF SYSTEMS: HEAD, EYES, EARS, NOSE, AND THROAT: No complaints. NEUROLOGIC: The patient reports a previous possible seizure and stroke about 1 year ago, which resulted in left-sided weakness. PULMONARY: Negative. CARDIAC: Negative. GASTROINTESTINAL: The patient has had problems with constipation alternating with diarrhea. GENITOURINARY: Benign prostatic hypertrophy history with several urinary tract infections over the years. He does not report being followed by urologist. Hematologic and rheumatoid issues, the patient does have history of rheumatoid arthritis affecting his joints particularly elbows and knees. PAST SURGICAL HISTORY: 1. Cholecystectomy. 2. Right shoulder replacement. 3. Cataract surgery. 4. Thyroid surgery. 5. Right colectomy for polyp. ALLERGIES: PENICILLIN. MEDICATIONS: Complete medication list is as follows; 1. Tamsulosin 0.4 mg p.o. daily. 2. Ditropan 5 mg p.o. daily. 3. Lipitor 20 mg p.o. daily. 4. Levothyroxine 150 mcg p.o. daily. 5. Sertraline 100 mg once daily. 6. Midodrine 10 mg 3 times a day. 7. Aspirin 81 mg per day. 8. Calcium 300 mg p.o. daily. 9. Daily multivitamin. 10. Gabapentin 100 mg once a day. 11. Lasix 40 mg per day. 12. MiraLAX 17 g p.o. daily. 13. Zinc 100 mg tablet 220 mg per day. 14. Keppra 500 mg per day. 15. Vitamin C 500 mg chewable tablet twice daily. PAST MEDICAL HISTORY: Includes; 1. Coronary artery disease. 2. Cardiac arrhythmia. 3. Atrial fibrillation. 4. Endocrinologic disease. 5. Hypothyroidism. 6. Hyperlipidemia. 7. Hypertension. 8. History of kidney stones and thyroid cancer. 9. History of CVA with left-sided deficits as noted. 10. Chronic kidney disease. SOCIAL HISTORY: The patient resides in the [facility] since his stroke. He is and has 2 children, one of whom is a daughter in [place] and is employed as a personnel assistant. A son resides in [place]. The patient reports he is a nonsmoker and nondrinker. 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 FAMILY MEDICAL HISTORY: The patient's mother lived to be 96. Grandmother lived to be 97. No history of genitourinary disease. PHYSICAL EXAMINATION: VITAL SIGNS: The patient is afebrile on this hospitalization. Current temperature 98.4, pulse 68, respirations 21, O2 saturation on room air is 97%, and blood pressure 157/68. HEAD, EYES, EARS, NOSE, AND THROAT: Extraocular movements are intact. Sclerae anicteric. Oropharynx is clear. NECK: Supple. LUNGS: Clear to auscultation bilaterally. CARDIAC: There is a regular rhythm with occasional irregular beat. Review on technical writer suggests these are PVCs. There is some motion artifact present as well. EXTREMITIES: The patient has what appears to be venous stasis changes and likely steroid related changes to his skin, which is paper thin on both of his arms and his lower extremities. These are dressed with gauze, dressing wraps, and some of these have some oozing on to mm serum. ABDOMEN: Soft and nontender. BACK: There is no true costovertebral angle tenderness. GENITOURINARY: Phallus is without lesion. Retraction of foreskin finds no lesions beneath urethral meatus, appears adequate. There is no tenderness of the scrotum. Testes appear benign on both sides. There is no evidence of inguinal canal hernia. Digital rectal examination is deferred due to mobility issues at the present time. LABORATORY STUDIES: The patient's white count is elevated at 16.8 this morning. There is a left shift with 84% neutrophils. Hemoglobin was 9.8 with hematocrit of 32.6. ANC is elevated at 14.1. The patient reports this is often the situation since he received steroid injections last week. The patient's D-dimer is moderately elevated at 3.09. Serum chemistry show the blood urea nitrogen currently at 25, creatinine moderately elevated at 1.75. Glucose 111 and potassium at 3.3. The patient's BNP this morning was 465.2, suggesting a degree of congestive heart failure. A urinalysis was obtained in the Emergency Department by catheterization. The patient had a nitrite positive urine. There was trace blood, ketones, and protein present. Urine color was orange, who has greater than 50 white cells per high-power field. Urine bacteria were 2+ and hyaline casts 4 to 6 were observed. Urine yeast was 1+. RADIOLOGIC STUDIES: A CT scan of the abdomen and pelvis was obtained on 03/11/2019. This study shows a presence of a 3 mm what appears to be obstructing distal right ureteral calculus with proximal hydroureter. The stone is within a few cm of the patient's bladder on this imaging study. There is some sectoring of the right kidney consistent with obstruction to the urinary flow. These findings are not present on the left side. The patient's bladder distends appropriately. The patient's prostate gland makes a small indentation into the base of the patient's bladder. There were no obvious filling defects. The bladder does not seem overtly thick walled. Fecal impaction is observed as well as atherosclerosis in the patient's blood vessels. ASSESSMENT AND PLAN: 1. Right 3 mm distal right ureteral calculus with apparent partial obstruction. The patient is relatively asymptomatic at the present time, although there are infectious disease concerns in this patient. He is completely nontoxic in appearance and has stable vital signs. That being the case, medical management is the order of the day. I would recommend appropriate antibiotics be utilized and given the presence of yeast in addition to Levaquin, I think Diflucan should probably be added to his coverage. We will obtain some KUB imaging studies to observe for retained contrast or obstruction or the stone on the right side. There is appropriate clearance of contrast in this patient, so this patient's stone may have passed given the clinical presentation. There are certain risks associated with anesthesia in general, particularly in a sick patient, dropping the blood pressure or investigations does not seem prudent. Present time, I think the appropriate medical stabilization is the order of the day and I will order a couple of KUB imaging studies to be performed. Based on the results of the studies, we will decide whether we are proceeding to the operating room when the patient is appropriately stabilized. 2. Chronic constipation likely secondary to dehydration. We would recommend appropriate management. The patient has an outpatient in his nursing facility to be given adequate access to water. Mobility likely affects his risks for kidney stone formation and long-term kidney stone risk factors need to be managed. Dehydration is the principal risk factor in this patient. He reports no previous lifetime kidney stones or treatment at my exam. 3. History of recurrent urinary tract infections usually relates to some form of outlet obstruction. Cystoscopic and urodynamic assessment of the patient will be appropriate as an outpatient as well. Ditropan would be relatively contraindicated in this setting since retention is most likely cause of recurrent urinary tract infection. I would recommend long-term discontinuation of that medication as an outpatient. Over 80 minutes of consultation time was spent in evaluation and assessment of this patient today. Job ID: [id number]
--- NOTE | 2019-03-12 15:36 | PDOC.PN ---
- Subjective Encounter Start Date: 03/12/19 Encounter Start Time: 15:30 Subjective: f/u for UTI and R distal ureteral calculus, SHERRY and mild hydronephrosis -: receiving Levaquin/Vanc, IVF's and Flomax. No new complaints. No issues -: reported per nursing. - Objective Resuscitation Status - Order Detail: 03/11/19 20:04 Resuscitation Status Routine Resuscitation Status: DNAR: NO Resuscitation Discussed with: discussed with the patient Vital Signs & Weight: Vital Signs (12 hours) Temp Pulse Resp BP Pulse Ox 03/12/19 13:03 98.0 F 82 18 148/71 H 95 03/12/19 07:45 98.4 F 68 21 H 157/68 H 97 Weight Weight 229 lb Result Diagrams: 03/12/19 07:27 03/12/19 07:27 Additional Labs: Microbiology 03/12/19 10:19 Stool C. difficile GDH Antigen & Toxins - Final 03/11/19 16:30 Urine Straight Catheter Urine Culture - Preliminary 03/11/19 16:04 Venous blood - Left Hand Blood Culture - Preliminary Specimen has been received and culture in progress. No Growth to date. 03/11/19 15:55 Venous blood - Right Arm Blood Culture - Preliminary Specimen has been received and culture in progress. No Growth to date. Laboratory Tests 03/11/19 03/11/19 03/11/19 15:55 15:55 15:55 WBC Hgb Neutrophils % Neutrophils % (Manual) Potassium 3.2 L BUN 29 H Creatinine 2.07 H Troponin I 0.025 B-Natriuretic Peptide 465.2 H 03/11/19 03/12/19 15:55 07:27 WBC 15.6 H Hgb 10.8 L Neutrophils % 84.0 H Neutrophils % (Manual) 89 H Potassium BUN Creatinine Troponin I B-Natriuretic Peptide Radiology Reviewed by me: Yes (ABD x-ray - mod R-sided hydronephrosis, large amount of stool) EKG Reviewed by me: Yes (Tele - A-fib in 80's) Phys Exam - Physical Examination Constitutional: NAD alert, responsive HEENT: PERRLA, sclera anicteric, oral pharynx no lesions Neck: no nodes, no JVD, supple, full ROM Respiratory: no wheezing, no rales, no rhonchi, clear to auscultation bilateral S1, S2, II/ SANKET Cardiovascular: no significant murmur, no rub, irregular Gastrointestinal: soft, non-tender, no distention, positive bowel sounds Musculoskeletal: pulses present, edema present L-sided weakness(chronic) Neurological: normal sensation, moves all 4 limbs Psychiatric: A&O x 3 Skin: normal turgor, cap refill <2 seconds Dx/Plan (1) UTI (urinary tract infection) Status: Acute Qualifiers: Urinary tract infection type: acute cystitis Hematuria presence: without hematuria Qualified Code(s): N30.00 - Acute cystitis without hematuria Comment: Ucx pending for final identification, continue empiric Levaquin/Vanc, IVF's (2) Ureteral calculus, right Code(s): N20.1 - CALCULUS OF URETER Status: Acute Comment: Mild hypdronephrosis associated with calculus, continue Flomax and IVF's, appreciated Urology assistance (3) SHERRY (acute kidney injury) Code(s): N17.9 - ACUTE KIDNEY FAILURE, UNSPECIFIED Status: Acute Comment: Likely multifactorial including ureteral calculus, continue IVF's, avoid nephrotoxic meds and limit contrast exposure (4) Afib Code(s): I48.91 - UNSPECIFIED ATRIAL FIBRILLATION Status: Chronic Qualifiers: Atrial fibrillation type: chronic Qualified Code(s): I48.2 - Chronic atrial fibrillation Comment: Rate-controlled currently, 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
[2019-03-12] MEDS: Potassium Chloride 20 MEQ TAB PO SCH (16:39)
[2019-03-12] MEDS ORDERED: Calcium Carbonate 500 MG ChewTAB PO PRN (19:49)
[2019-03-12] MEDS: Senokot S 8.6-50 MG TAB PO SCH (21:00)
[2019-03-12] MEDS: Docusate 100 MG CAP PO SCH (21:00)
[2019-03-13] MEDS: Vancomycin HCl 1 GM in Premix Bag 1 BAG IVPB SCH ×2 (00:05→22:38)
[2019-03-13] MEDS: Sodium Chloride 0.9% 1,000 ML IV SCH ×2 (00:06→14:54)
[2019-03-13] MEDS: Levothyroxine Sodium 125 MCG TAB PO SCH (05:51)
[2019-03-13 07:59] LABS: Mean Corpuscular HGB CONC 31.6 g/dL (32.0-36.0); Mean Corpuscular Hemoglobin 29.9 pg (27.0-31.0); Mean Corpuscular Volume 94.6 fL (78.0-98.0); Mean Platelet Volume 6.8 fL (7.4-10.4); Platelet Count 203 thou/uL (130-400); RBC Distribution Width 12.7 % (11.5-14.5); Red Blood Cell (RBC) Count 3.34 mill/uL (4.70-6.10); White Blood Cell (WBC) Count 13.5 thou/uL (4.8-10.8)
[2019-03-13 08:16] LABS: Anion Gap 11 mmol/L (10-20); BUN (Urea Nitrogen) 22 mg/dL (8.4-25.7); Calc. Creatinine Clearance 47 mL/min (70-130); Calcium 8.7 mg/dL (7.8-10.44); Carbon Dioxide 26 mmol/L (23-31); Chloride 106 mmol/L (98-107); Estimated GFR-MDRD 41; Glucose 102 mg/dL (83-110); Potassium 3.4 mmol/L (3.5-5.1); Sodium 140 mmol/L (136-145)
[2019-03-13] MEDS: Potassium Chloride 20 MEQ TAB PO SCH ×2 (08:29→19:15)
[2019-03-13] MEDS: levETIRAcetam 500 MG TAB PO SCH ×2 (08:30→21:24)
[2019-03-13] MEDS: Midodrine HCl 5 MG TAB PO SCH ×3 (08:30→21:24)
[2019-03-13] MEDS: Senokot S 8.6-50 MG TAB PO SCH ×2 (08:30→21:24)
[2019-03-13] MEDS: Famotidine 20 MG TAB PO SCH (08:30)
[2019-03-13] MEDS: Docusate 100 MG CAP PO SCH ×2 (08:30→21:25)
[2019-03-13] MEDS: Atorvastatin Calcium 20 MG TAB PO SCH (08:30)
[2019-03-13] MEDS: Aspirin 81 mg Enteric Coated Tablet PO SCH (08:30)
[2019-03-13] MEDS: Tamsulosin HCl 0.4 MG CAP PO SCH (08:30)
[2019-03-13] MEDS: Acetaminophen/Codeine 30-300mg Tablet PO PRN (08:34)
[2019-03-13 09:03] LABS: Band 4 % (5-11); Eosinophils 1 % (0-10); Lymphocytes 10 % (21-51); MDiff Complete? YES; Metamyelocyte 1 % (0-0); Monocytes 2 % (0-10); Neutrophil 79 % (42-75); Platelet Morphology Comment Appears Adequate; Polychromasia SLIGHT = 2-3 cells (100X) (0-2/hpf); Reactive Lymphocytes 1 % (0-10)
--- NOTE | 2019-03-13 11:07 | PQF ---
DATE: 03-13-19 ATTN : DR. ROSE MANCINI Please exercise your independent, professional judgment in responding to the clarification form. Clinical indicators are provided on the bottom of this form for your review Please check appropriate box(s) to clarify if the following diagnosis has been ruled in or ruled out: SEPSIS [ ] Ruled in diagnosis [ ] Continue to treat [ ] Resolved [ x ] Ruled out diagnosis [ ] Other diagnosis [ ] Unable to determine In addition, please specify: Present on Admission (POA): [ ] Yes [ x ] No [ ] Unable to determine For continuity of documentation, please document condition throughout progress notes and discharge summary. Thank You. CLINICAL INDICATORS - SIGNS / SYMPTOMS / LABS ER DX: RESPIRATORY DISTRESS, SHERRY, SEPSIS, UTI WBC: 03-11-19: 15.6 03-12-19: 16.8 03-13-19: 13.5 H&P 03-11-19: UTI, HX OF HEMORRHAGIC CVA, SEIZURE DISORDER, SHERRY RISK FACTORS: H&P 03-11-19: CVA RESULTED IN SOME L SIDED WEAKNESS, SEIZURE DISORDER, A FIB, HTN, HYPOTHYROIDISM, ARTHRITIS EXTREMES OF AGE TREATMENTS: 03-11-19: IVF NS, LEVAQUIN IV, VANCOMYCIN (This form is maintained as a part of the permanent medical record) 2014 [employer]. All Rights Reserved PAT [email or web address] Office: [phone] [place]
[2019-03-13] MEDS ORDERED: Lidocaine 1% PF 5 ML VIAL ONE (13:46)
[2019-03-13] MEDS ORDERED: PROPOFOL 200 MG/20 ML VIAL ONE (13:46)
[2019-03-13] MEDS ORDERED: Dexamethasone 20 MG/5 ML VIAL ONE (13:46)
[2019-03-13] MEDS ORDERED: Ondansetron PF 4 MG/2 ML Vial ONE (13:46)
--- NOTE | 2019-03-13 14:27 | PDOC.PN ---
- Subjective Encounter Start Date: 03/13/19 Encounter Start Time: 14:20 Subjective: f/u for UTI and R distal ureteral calculus on Levaquin/Vancomycin -: Feels better overall. Less pain and no N/V. NPO currently awaiting -: cystoscopy and ureteral stenting. - Objective Resuscitation Status - Order Detail: 03/11/19 20:04 Resuscitation Status Routine Resuscitation Status: DNAR: NO Resuscitation Discussed with: discussed with the patient MAR Reviewed: Yes Vital Signs & Weight: Vital Signs (12 hours) Temp Pulse Pulse Pulse Resp BP BP 03/13/19 12:42 98.9 F 76 18 03/13/19 11:24 85 82 141/63 H 135/61 03/13/19 09:42 86 133/61 03/13/19 07:25 98.7 F 80 18 BP Pulse Ox 03/13/19 12:42 139/65 93 L 03/13/19 11:24 03/13/19 09:42 03/13/19 07:25 144/68 H 93 L Weight Admit Weight 229 lb Weight 229 lb I&O: 03/12/19 03/13/19 03/14/19 06:59 06:59 06:59 Intake Total 2440 Output Total 350 Balance 2090 Result Diagrams: 03/13/19 07:34 03/13/19 07:34 Additional Labs: Microbiology 03/12/19 10:19 Stool C. difficile GDH Antigen & Toxins - Final 03/11/19 16:30 Urine Straight Catheter Urine Culture - Preliminary YEAST 03/11/19 16:30 Urine Straight Catheter Urine Culture - Preliminary 03/11/19 16:04 Venous blood - Left Hand Blood Culture - Preliminary Specimen has been received and culture in progress. No Growth to date. 03/11/19 16:04 Venous blood - Left Hand Blood Culture - Preliminary NO GROWTH AT 48 HOURS 03/11/19 15:55 Venous blood - Right Arm Blood Culture - Preliminary Specimen has been received and culture in progress. No Growth to date. 03/11/19 15:55 Venous blood - Right Arm Blood Culture - Preliminary Coagulase Neg Staphylococcus Laboratory Tests 03/11/19 03/11/19 03/11/19 15:55 15:55 15:55 WBC Hgb Neutrophils % Neutrophils % (Manual) Potassium 3.2 L BUN 29 H Creatinine 2.07 H Troponin I 0.025 B-Natriuretic Peptide 465.2 H 03/11/19 03/12/19 15:55 07:27 WBC 15.6 H Hgb 10.8 L Neutrophils % 84.0 H Neutrophils % (Manual) 89 H Potassium BUN Creatinine Troponin I B-Natriuretic Peptide EKG Reviewed by me: Yes (Tele - A-fib in 70's) Phys Exam - Physical Examination Constitutional: NAD alert, responsive HEENT: PERRLA, sclera anicteric, oral pharynx no lesions Neck: no nodes, no JVD, supple, full ROM diminished in bases Respiratory: no wheezing S1, S2 Cardiovascular: no significant murmur, no rub, gallop, irregular Gastrointestinal: soft, non-tender, no distention, positive bowel sounds Musculoskeletal: pulses present, edema present Neurological: moves all 4 limbs Psychiatric: A&O x 3 Skin: normal turgor, cap refill <2 seconds Dx/Plan (1) UTI (urinary tract infection) Status: Acute Qualifiers: Urinary tract infection type: acute cystitis Hematuria presence: without hematuria Qualified Code(s): N30.00 - Acute cystitis without hematuria Comment: Ucx with yeast spp, start Diflucan 100mg daily, continue empiric Levaquin/Vanc, IVF's (2) Ureteral calculus, right Code(s): N20.1 - CALCULUS OF URETER Status: Acute Comment: Mild-moderate hypdronephrosis associated with calculus, continue Flomax and IVF's, cystoscopy with ureteral stent placement today (3) SHERRY (acute kidney injury) Code(s): N17.9 - ACUTE KIDNEY FAILURE, UNSPECIFIED Status: Acute Comment: Likely multifactorial including ureteral calculus, continue IVF's, avoid nephrotoxic meds and limit contrast exposure, improving (4) Afib Code(s): I48.91 - UNSPECIFIED ATRIAL FIBRILLATION Status: Chronic Qualifiers: Atrial fibrillation type: chronic Qualified Code(s): I48.2 - Chronic atrial fibrillation Comment: Rate-controlled currently, 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
[2019-03-13] MEDS: Fluconazole 100 MG TAB PO SCH (14:54)
--- NOTE | 2019-03-13 16:06 | RAD ---
KUB: 03/13/19 HISTORY: Renal stone. COMPARISON: Prior day's study. There still appears to be some contrast within the right collecting system and bladder. There is air within both small and large bowel with some gaseous distention. It is difficult to definitely demonst rate a ureteral calculus. There are vascular calcifications noted. Marked arthritic changes of the sp ine and arthritic changes of both hips are noted. Surgical clips in the right upper quadrant appear to be related to prior cholecystectomy. IMPRESSION: There still appears to be some residual contrast within the right collecting system and bladder. Righ t ureter is not well visualized on this exam. POS: TPC
[2019-03-13] MEDS ORDERED: Iothalamate Meglumine 60% 50 ML VIAL FS ONE (17:11)
[2019-03-13] MEDS ORDERED: Lidocaine 4% Topical Sol 50 ML BOT ONE (17:15)
[2019-03-13] MEDS ORDERED: Levofloxacin 500 mg/D5W 100 ml Premix Bag ONE (17:22)
[2019-03-13] MEDS ORDERED: Famotidine/PF 20 mg/2ml Vial ONE (17:37)
[2019-03-13] MEDS ORDERED: Fentanyl 100 MCG/2 ML VIAL ONE (17:42)
[2019-03-13] MEDS ORDERED: HYDROmorphone 2 MG/ML VIAL ONE (18:49)
[2019-03-13] MEDS ORDERED: B & O ONE (18:52)
[2019-03-13] MEDS ORDERED: FLUCONAZOLE IN NACL ISO OSM IVPB ONE (19:15)
[2019-03-13] MEDS ORDERED: Fluconazole In NaCl,Iso-Osm 200 MG in Premix Bag 1 BAG IVPB ONE (19:15)
--- NOTE | 2019-03-13 19:17 | RAD ---
Exam: Retrograde Polygram: HISTORY: Stent placement, distal right ureteral calculus FINDINGS: 4 Portable fluoroscopic spot images are presented. Very incomplete filling of the right ureter which appears somewhat irregular on this study. Right ureteral stent placement. IMPRESSION: Right ureteral stent placement. Very poorly defined ureter.
[2019-03-13] MEDS ORDERED: Morphine Sulfate 2 MG/ML SYRINGE SLOW IVP PRN (19:35)
[2019-03-13] MEDS ORDERED: PACU-Morphine 4MG/ML VIAL SLOW IVP PRN (19:35)
[2019-03-13] MEDS ORDERED: Ondansetron HCl/PF 4 MG/2 ML Vial IVP PRN (19:35)
[2019-03-13] MEDS ORDERED: Promethazine HCl 25 MG/ML VIAL IM PRN (19:35)
[2019-03-13] MEDS ORDERED: Promethazine HCl 25 MG/ML VIAL SLOW IVP PRN (19:35)
[2019-03-13 22:51] LABS: Vancomycin, Trough 13.4 ug/mL
--- NOTE | 2019-03-13 23:42 | CON ---
DATE OF CONSULTATION: 03/13/2019 INITIAL REASON FOR CONSULTATION: 1. Right ureteral calculus. 2. Elevated white blood cell count. HISTORY OF PRESENT ILLNESS: Mr. 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 He presented to the hospital with generalized weakness and does have a past history of stroke in March of 2018. The patient underwent evaluation which noted elevated white blood cell count, likely related to his chronic lymphocytic leukemia and recent steroid use. The patient was afebrile and did not have significant flank pain symptoms, did undergo CT scan imaging and had an elevated serum creatinine suggesting obstruction. CT scanning demonstrated a right distal ureteral calculus measuring about 3 mm in diameter. The patient continued to do reasonably well on the floor. He does have a history of multiple medical difficulties and did undergo subsequent followup KUB imaging which demonstrated persistent staining nephrogram on the right side. A KUB study yesterday and today both demonstrate persistent contrast from the patient's CT scan indicating high-grade obstruction. PHYSICAL EXAMINATION: VITAL SIGNS: The patient is afebrile. Current temperature of 98.9, pulse 76, respirations 18, O2 saturations 93% on room air, blood pressure is 139/65. GENERAL: Pleasant, awake, alert, white male, in no apparent distress. HEAD, EARS, NOSE, AND THROAT: Extraocular movements are intact. Sclerae anicteric. Oropharynx is clear. NECK: Supple. LUNGS: Clear to auscultation bilaterally. CARDIAC: There is a regular rate and rhythm. ABDOMEN: Soft and nontender. EXTREMITIES: The patient has his extremities dressed due to relatively thin skin with multiple contusions, is relatively paper-thin skin, is otherwise normal. BACK: Mild right-sided flank pain tenderness today. LABORATORY STUDIES: White count is improved to 13,500 from 15.6 on 03/11 and 16,800 yesterday. The patient's left shift has also improved to 79%. Serum chemistry showed the patient's potassium at 3.4, blood urea nitrogen is at 22, creatinine down to 1.59 today. RADIOLOGIC IMAGING STUDIES: KUB studies from yesterday and today demonstrate persistent nephrogram on the right side. ASSESSMENT: High-grade right-sided ureteral obstruction secondary to obstructing calculus. PLAN: 1. Plan will be to proceed to the operating room for ureteroscopic disposition of the stone and placement of a stent. 2. Concerns for BPH. The patient's KUB imaging study from today demonstrates a reasonably small residual after voiding, indicating that he is not currently in urinary retention. Previous imaging study showed large postvoid residual. Overall assessment evaluation time on this patient was over 35 minutes. Job ID: [id number]
--- NOTE | 2019-03-14 01:19 | OP ---
DATE OF PROCEDURE: 03/13/2019 PREOPERATIVE DIAGNOSES: 1. Right ureteral calculus with high-grade obstruction. 2. Right ureteral obstruction, high grade. 3. Elevated white blood count, believe secondary to CLL recent steroid therapy. POSTPROCEDURE DIAGNOSES: 1. Right ureteral calculus consisting of matrix calcium oxalate and uric acid. 2. Possible fungal urinary tract infection on the right side. 3. Right ureteral obstruction, high grade. PROCEDURES PERFORMED: 1. Cystourethroscopy with right ureteroscopy and stone extraction, 60812. 2. Balloon dilation of the right ureter, 16889. 3. Right ureteral stent, 61168. SPECIMENS REMOVED: 1. Stone removed for chemical analysis. 2. Right ureter urine for culture. 3. Bladder urine for culture. ESTIMATED BLOOD LOSS: Less than 5 mL. OPERATIVE FINDINGS: Apparent matrix type stone was recovered largely consisting of particles of calcium oxalate and uric acid, most which was not recoverable. In addition, the patient had a large amount of what appeared to be yeast and/or matrix filling the ureter. BRIEF HISTORY: Mr. 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 The patient had complaints of pain in his extremities and general deconditioning, was brought in and underwent evaluation which included a CT scan of the abdomen and pelvis with contrast. The patient's collecting system was filled with contrast and he had no progression of contrast to the right ureter. A distal ureteral calculus was observed on the CT scan, measuring about 3 mm in diameter. The contrast over the next 48 hours appeared to fill the patient's right ureter but did not exit due to this. We brought the patient to the operating room for treatment of high-grade obstruction, presence of elevated white count. The patient was preoperatively cared for by the medical service and adequately he was stabilized. After 48 hours of antibiotic therapy, the patient was brought to the preoperative area, he gave his informed consent for the procedure. DESCRIPTION OF PROCEDURE: The patient was subsequently brought to the operative suite, placed in a supine position. General anesthesia was established. The patient was repositioned in supine lithotomy position and prepped and draped in usual sterile fashion. Cystoscopic evaluation was performed using a 23-Vincentian cystoscope sheath with a 30-degree lens. The patient's urethra appeared to be free of significant obstructive strictures at the meatus. The patient's prostate gland was moderately enlarged and obstructive. The patient's bladder was entered. Trabeculation was grade 2. No large diverticular sacs were observed. The right ureter had no evidence of efflux, some purulent-appearing material was exiting from the right ureteric orifice, however. No stones were observed in the patient's bladder. Left ureter copiously effluxed. We accessed the right ureter using 0.035 angled Glidewire and a 5-Vincentian Pollack catheter. We advanced 2 wires up the patient's right ureter. We then performed a distal retrograde pyelogram which showed probable matrix filling the patient's right ureter. We did not observe any radiopaque calculi. After retrograde evaluation showed no evidence of significant filling defect, we performed balloon dilation of the distal ureter and transrenal ureter. Following balloon dilation, we performed ureteroscopic evaluation of the patient's right ureter using a semirigid ureteroscope. We evaluated the patient's entire ureter using the scope from large amounts of matrix material with various amounts of stones. Some of this appeared to be calcium oxalate, other uric acid. The bulk of this consisted of proteinaceous material and possible fungal elements. We cleared as much of this as we could using a Zero Tip Nitinol basket and recovered some small dark colored stones which appeared to be made of calcium oxalate for chemical analysis. A urine specimen was also collected from the right ureter during the course of the procedure and the patient's bladder. Supper culture specimens were sent for evaluation. Following ureteroscopy, we placed a 4.5-Vincentian x 28 cm double-J ureteral stent to the patient's right ureter. String was removed, leaving coil in the patient's renal pelvis and within the patient's bladder. The patient's bladder was appropriately drained at the close of the procedure. A belladonna and opioid suppository was applied per rectum 16A 60 mg. The patient was returned to supine position, was transferred to the [facility] and airway was removed. The patient tolerated the procedure well with no immediate complications in evidence. Blood loss was less than 5 mL. Complications none in evidence. Job ID: [id number]
[2019-03-14] MEDS: Sodium Chloride 0.9% 1,000 ML IV SCH ×2 (01:34→17:05)
[2019-03-14] MEDS: Levothyroxine Sodium 125 MCG TAB PO SCH (05:21)
[2019-03-14 07:28] LABS: Hemoglobin 10.5 g/dL (14.0-18.0); Mean Corpuscular HGB CONC 31.6 g/dL (32.0-36.0); Mean Corpuscular Hemoglobin 29.8 pg (27.0-31.0); Mean Corpuscular Volume 94.5 fL (78.0-98.0); Mean Platelet Volume 6.4 fL (7.4-10.4); Platelet Count 206 thou/uL (130-400); White Blood Cell (WBC) Count 17.6 thou/uL (4.8-10.8)
[2019-03-14 07:40] LABS: Anion Gap 14 mmol/L (10-20); BUN (Urea Nitrogen) 27 mg/dL (8.4-25.7); Calc. Creatinine Clearance 50 mL/min (70-130); Calcium 8.7 mg/dL (7.8-10.44); Carbon Dioxide 23 mmol/L (23-31); Chloride 109 mmol/L (98-107); Estimated GFR-MDRD 44; Glucose 124 mg/dL (83-110); Potassium 4.6 mmol/L (3.5-5.1); Sodium 141 mmol/L (136-145)
[2019-03-14] MEDS: Atorvastatin Calcium 20 MG TAB PO SCH (07:55)
[2019-03-14] MEDS: Aspirin 81 mg Enteric Coated Tablet PO SCH (07:56)
[2019-03-14] MEDS: Tamsulosin HCl 0.4 MG CAP PO SCH (07:56)
[2019-03-14] MEDS: Docusate 100 MG CAP PO SCH ×2 (07:56→20:24)
[2019-03-14] MEDS: levETIRAcetam 500 MG TAB PO SCH ×2 (07:56→20:24)
[2019-03-14] MEDS: Potassium Chloride 20 MEQ TAB PO SCH (07:56)
[2019-03-14] MEDS: Famotidine 20 MG TAB PO SCH (07:56)
[2019-03-14] MEDS: Midodrine HCl 5 MG TAB PO SCH ×3 (07:57→20:24)
[2019-03-14] MEDS: Senokot S 8.6-50 MG TAB PO SCH ×2 (07:57→20:24)
[2019-03-14 08:14] LABS: Band 13 % (5-11); Eosinophils 1 % (0-10); Hypochromia SLIGHT = 6-15 cells (100X) (0-5/hpf); Lymphocytes 8 % (21-51); MDiff Complete? YES; Monocytes 4 % (0-10); Neutrophil 74 % (42-75); Platelet Morphology Comment Appears Adequate; Polychromasia SLIGHT = 2-3 cells (100X) (0-2/hpf)
--- NOTE | 2019-03-14 08:56 | RAD ---
SUPINE ABDOMEN: Indications: Kidney stone. Comparison: Abdominal film, 03-13-19 FINDINGS/IMPRESSION: A right double pigtail ureteral stent is now noted. Bowel gas pattern is unremarkable. The previously noted tiny calculus in the distal right ureter is not definitely identified on this plain film. POS: [facility]
[2019-03-14] MEDS: Acetaminophen/Codeine 30-300mg Tablet PO PRN (09:35)
--- NOTE | 2019-03-14 14:33 | PDOC.PN ---
- Subjective Encounter Start Date: 03/14/19 Encounter Start Time: 14:20 Subjective: f/u for R ureteral calculus s/p ureteral stent placement POD #1 -: Receiving IVF, Levaquin and Diflucan. Feels ok overall. - Objective Resuscitation Status - Order Detail: 03/11/19 20:04 Resuscitation Status Routine Resuscitation Status: DNAR: NO Resuscitation Discussed with: discussed with the patient MAR Reviewed: Yes Vital Signs & Weight: Vital Signs (12 hours) Temp Pulse Resp BP Pulse Ox 03/14/19 08:00 97.6 F 80 20 160/74 H 97 03/14/19 05:00 98.2 F 82 18 132/68 95 Weight Admit Weight 229 lb Weight 229 lb I&O: 03/13/19 03/14/19 03/15/19 06:59 06:59 06:59 Intake Total 2440 840 Output Total 350 Balance 2090 840 Result Diagrams: 03/14/19 07:11 03/14/19 07:11 Additional Labs: Microbiology 03/12/19 10:19 Stool C. difficile GDH Antigen & Toxins - Final 03/11/19 16:30 Urine Straight Catheter Urine Culture - Preliminary YEAST 03/11/19 16:30 Urine Straight Catheter Urine Culture - Preliminary 03/11/19 16:04 Venous blood - Left Hand Blood Culture - Preliminary Specimen has been received and culture in progress. No Growth to date. 03/11/19 16:04 Venous blood - Left Hand Blood Culture - Preliminary NO GROWTH AT 48 HOURS 03/11/19 15:55 Venous blood - Right Arm Blood Culture - Preliminary Specimen has been received and culture in progress. No Growth to date. 03/11/19 15:55 Venous blood - Right Arm Blood Culture - Preliminary Coagulase Neg Staphylococcus Laboratory Tests 03/11/19 03/11/19 03/11/19 15:55 15:55 15:55 WBC Hgb Neutrophils % Neutrophils % (Manual) Potassium 3.2 L BUN 29 H Creatinine 2.07 H Troponin I 0.025 B-Natriuretic Peptide 465.2 H 03/11/19 03/12/19 15:55 07:27 WBC 15.6 H Hgb 10.8 L Neutrophils % 84.0 H Neutrophils % (Manual) 89 H Potassium BUN Creatinine Troponin I B-Natriuretic Peptide Phys Exam - Physical Examination Constitutional: NAD HEENT: PERRLA, sclera anicteric, oral pharynx no lesions Neck: no nodes, no JVD, supple, full ROM Respiratory: no wheezing, no rales, no rhonchi, clear to auscultation bilateral S1, S2 Cardiovascular: no significant murmur, no rub, gallop, irregular Gastrointestinal: soft, non-tender, no distention, positive bowel sounds Musculoskeletal: pulses present, edema present Neurological: normal sensation, moves all 4 limbs Skin: normal turgor, cap refill <2 seconds Dx/Plan (1) UTI (urinary tract infection) Status: Acute Qualifiers: Urinary tract infection type: acute cystitis Hematuria presence: without hematuria Qualified Code(s): N30.00 - Acute cystitis without hematuria Comment: Ucx with yeast spp, start Diflucan 100mg daily, continue empiric Levaquin, IVF's, likely de-escalate abx regimen in 24h, d/c Vancomycin (2) Ureteral calculus, right Code(s): N20.1 - CALCULUS OF URETER Status: Acute Comment: Mild-moderate hypdronephrosis associated with calculus, continue Flomax and IVF's, s/p R ureteral stent placement POD #1 (3) SHERRY (acute kidney injury) Code(s): N17.9 - ACUTE KIDNEY FAILURE, UNSPECIFIED Status: Acute Comment: Likely multifactorial including ureteral calculus, continue IVF's, avoid nephrotoxic meds and limit contrast exposure, improving (4) Afib Code(s): I48.91 - UNSPECIFIED ATRIAL FIBRILLATION Status: Chronic Qualifiers: Atrial fibrillation type: chronic Qualified Code(s): I48.2 - Chronic atrial fibrillation Comment: Rate-controlled currently, 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
[2019-03-14] MEDS: Fluconazole 100 MG TAB PO SCH (14:44)
[2019-03-14] MEDS ORDERED: Vancomycin HCl 1.25 GM in Sodium Chloride 0.9% 250 ML 250 ML IVPB SCH (23:00)
[2019-03-15] MEDS: Sodium Chloride 0.9% 1,000 ML IV SCH (03:01)
[2019-03-15] MEDS: Levothyroxine Sodium 125 MCG TAB PO SCH (05:19)
[2019-03-15 07:59] LABS: BUN (Urea Nitrogen) 31 mg/dL (8.4-25.7); Calc. Creatinine Clearance 49 mL/min (70-130); Calcium 8.3 mg/dL (7.8-10.44); Carbon Dioxide 18 mmol/L (23-31); Chloride 111 mmol/L (98-107); Estimated GFR-MDRD 43; Glucose 113 mg/dL (83-110); Sodium 140 mmol/L (136-145)
[2019-03-15] MEDS: Docusate 100 MG CAP PO SCH ×3 (08:04→20:30)
[2019-03-15] MEDS: Aspirin 81 mg Enteric Coated Tablet PO SCH (08:04)
[2019-03-15] MEDS: levETIRAcetam 500 MG TAB PO SCH ×2 (08:04→20:33)
[2019-03-15] MEDS: Potassium Chloride 20 MEQ TAB PO SCH ×2 (08:04→08:06)
[2019-03-15] MEDS: Famotidine 20 MG TAB PO SCH (08:06)
[2019-03-15] MEDS: Senokot S 8.6-50 MG TAB PO SCH ×3 (08:07→20:30)
[2019-03-15] MEDS: Atorvastatin Calcium 20 MG TAB PO SCH (08:10)
[2019-03-15] MEDS: Midodrine HCl 5 MG TAB PO SCH ×4 (08:10→20:32)
[2019-03-15] MEDS: Tamsulosin HCl 0.4 MG CAP PO SCH (08:10)
[2019-03-15 10:44] LABS: Anion Gap 17 mmol/L (10-20)
[2019-03-15] MEDS: Fluconazole 100 MG TAB PO SCH (14:38)
--- NOTE | 2019-03-15 14:45 | PDOC.PN ---
- Subjective Encounter Start Date: 03/15/19 Encounter Start Time: 14:44 Mr. Flores was seen today in follow-up of UTI and renal stones. - Objective Resuscitation Status - Order Detail: 03/11/19 20:04 Resuscitation Status Routine Resuscitation Status: DNAR: NO Resuscitation Discussed with: discussed with the patient MAR Reviewed: Yes Vital Signs & Weight: Vital Signs (12 hours) Temp Pulse Resp BP BP Pulse Ox 03/15/19 08:00 97.9 F 73 20 165/80 H 100 03/15/19 04:00 97.7 F 73 20 129/77 97 Weight Admit Weight 229 lb Weight 229 lb I&O: 03/14/19 03/15/19 03/16/19 06:59 06:59 06:59 Intake Total 840 2300 Balance 840 2300 Result Diagrams: 03/14/19 07:11 03/15/19 06:24 Phys Exam - Physical Examination HEENT: PERRLA Respiratory: no wheezing, no rales, no rhonchi, clear to auscultation bilateral Cardiovascular: RRR, no significant murmur, no rub Gastrointestinal: soft, non-tender, no distention, positive bowel sounds Musculoskeletal: pulses present, edema present + massive edema in both upper extremities, and bruising 1+ edema in oth lower extremities Dx/Plan (1) UTI (urinary tract infection) Status: Acute Qualifiers: Urinary tract infection type: acute cystitis Hematuria presence: without hematuria Qualified Code(s): N30.00 - Acute cystitis without hematuria Comment: Ucx with yeast spp, start Diflucan 100mg daily, continue empiric Levaquin, IVF's, likely de-escalate abx regimen in 24h, d/c Vancomycin (2) Ureteral calculus, right Code(s): N20.1 - CALCULUS OF URETER Status: Acute Comment: Mild-moderate hypdronephrosis associated with calculus, continue Flomax and IVF's, s/p R ureteral stent placement POD #1 (3) Afib Code(s): I48.91 - UNSPECIFIED ATRIAL FIBRILLATION Status: Chronic Qualifiers: Atrial fibrillation type: chronic Qualified Code(s): I48.2 - Chronic atrial fibrillation Comment: Rate-controlled currently, 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 * Hypothyroidism- stable * Continue PT/OT * Home when cleared by Urology
[2019-03-15] MEDS: Acetaminophen/Codeine 30-300mg Tablet PO PRN ×2 (15:05→21:32)
[2019-03-15 17:37] LABS: Potassium 4.5 mmol/L (3.5-5.1)
--- NOTE | 2019-03-15 22:56 | CON ---
DATE OF CONSULTATION: 03/15/2019 REASON FOR CONSULTATION: 1. Right ureteral obstruction with calculus. 2. Candidal urinary tract infection. 3. Elevated white blood cell count. HISTORY OF PRESENT ILLNESS: Mr. 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 He has chronic lymphocytic leukemia and in addition has had a recent history of stroke in March of 2018 and a seizure in October of 2018. The patient has been hospitalized twice in the last year and now 3rd time. 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 He lives in the [facility] since the stroke. The patient is and has 2 children, one of whom is a daughter in [place] who is employed as a payroll supervisor with whom I have discussed his care in the past. Mr. Flores is making reasonable progress. He did not have a CBC performed today, but did have elevated white blood cell count on postoperative day #1 from his right-sided stent placement and right ureteroscopy. We found a large amount of probable fungal material in his right ureter and removed some small stone like particles associated with the ureteral cast filling his right ureter. We did place a stent. The patient has been stable since the operation. He is on Diflucan as he was prior to surgery. The patient has had a interval KUB imaging studies, which do not demonstrate the presence of calculus and showed the patient's stent in proper position for appropriate drainage. The patient has been troubled postoperatively by hyperkalemia and has received some Kayexalate today, which has resulted in some diarrhea. His potassium is down to 4.5 from 6.0 yesterday. The patient's renal function was stable on today's evaluation with a blood urea nitrogen of 31, creatinine of 1.52. Mr. Flores only has complaints about his joint discomfort, which has been his only complaint during hospitalization. PHYSICAL EXAMINATION: VITAL SIGNS: Temperature is 98.3, pulse 77, respirations 20, O2 saturation is 96%, blood pressure is 147/69. GENERAL: He is awake, alert, white male, in no apparent distress. HEAD, EARS, NOSE, AND THROAT: Extraocular movements are intact. Sclerae are anicteric. Oropharynx is clear. NECK: Supple. LUNGS: Clear to auscultation bilaterally. CARDIAC: Regular rate and rhythm. ABDOMEN: Soft, nontender. GENITOURINARY: Phallus is without lesions. There is no catheter in place. EXTREMITIES: The patient's bilateral upper extremities are wrapped and the patient has relatively paper thin skin. There are multiple contusions and bruising present on bilateral arms. There is some weeping to the associated dressings. Lower extremity shows a small degree of edema. RECTAL: Rectal examination was not repeated on exam. GASTROINTESTINAL: The patient is having diarrhea secondary to the Kayexalate administration. ASSESSMENT: 1. Upper urinary tract candidal infection with cast forming of the right ureter. The patient did not apparently have culture, but cytology was performed of the urine recovered and did have yeast species compatible with Julia. This is from above the level of obstructing calculus. 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 2. Based on those findings, I think it may be valuable to have Infectious Disease evaluation of this patient and it would be appropriate to consult Dr. Vidales prior to the patient's discharge, to see if further optimization in the setting of chronic lymphocytic leukemia and upper tract infection is indicated. The patient is a difficult IV access and PICC line may also be considered. 3. Nephrolithiasis. Stone fragments were sent for chemical analysis. In this patient's case, most of the obstruction seems to be secondary to fungal involvement of the patient's ureter. 4. Hyperkalemia. The patient's potassium supplementation has been terminated and he did receive Kayexalate with appropriate recovery of his potassium level. 5. Further management, the patient will need to follow up in my office in 3-[address] scan results to evaluate whether the stent can be removed. On KUB imaging, there is no evidence of calculus, but this is only about 60% sensitive in a patient with body edema and overall size of this patient, a 3 mm calculus would not be easily visible. Job ID: [id number]
[2019-03-16] MEDS: Levothyroxine Sodium 125 MCG TAB PO SCH (05:11)
[2019-03-16] MEDS: Acetaminophen/Codeine 30-300mg Tablet PO PRN ×2 (05:11→18:32)
[2019-03-16 07:14] LABS: Anion Gap 12 mmol/L (10-20); BUN (Urea Nitrogen) 30 mg/dL (8.4-25.7); Calc. Creatinine Clearance 60 mL/min (70-130); Calcium 8.6 mg/dL (7.8-10.44); Carbon Dioxide 24 mmol/L (23-31); Chloride 111 mmol/L (98-107); Estimated GFR-MDRD 54; Glucose 103 mg/dL (83-110); Potassium 3.8 mmol/L (3.5-5.1); Sodium 143 mmol/L (136-145)
[2019-03-16] MEDS: Tamsulosin HCl 0.4 MG CAP PO SCH (08:37)
[2019-03-16] MEDS: Midodrine HCl 5 MG TAB PO SCH ×3 (08:37→21:01)
[2019-03-16] MEDS: Docusate 100 MG CAP PO SCH ×2 (08:37→21:02)
[2019-03-16] MEDS: Famotidine 20 MG TAB PO SCH (08:37)
[2019-03-16] MEDS: Senokot S 8.6-50 MG TAB PO SCH ×2 (08:37→21:02)
[2019-03-16] MEDS: Atorvastatin Calcium 20 MG TAB PO SCH (08:37)
[2019-03-16] MEDS: levETIRAcetam 500 MG TAB PO SCH ×2 (08:38→21:01)
[2019-03-16] MEDS: Aspirin 81 mg Enteric Coated Tablet PO SCH (08:38)
[2019-03-16] MEDS: Fluconazole 100 MG TAB PO SCH (14:28)
--- NOTE | 2019-03-16 15:49 | PDOC.PN ---
- Subjective Encounter Start Date: 03/16/19 Encounter Start Time: 15:48 Mr. Flores was seen today in follow-up of UTI and Nephrolithiasis. He does not have any new complaints today. - Objective Resuscitation Status - Order Detail: 03/11/19 20:04 Resuscitation Status Routine Resuscitation Status: DNAR: NO Resuscitation Discussed with: discussed with the patient MAR Reviewed: Yes Vital Signs & Weight: Vital Signs (12 hours) Temp Pulse Resp BP BP Pulse Ox 03/16/19 11:19 97.9 F 76 18 175/90 H 97 03/16/19 08:00 97 03/16/19 07:38 97.9 F 84 16 166/75 H 97 03/16/19 05:17 98.1 F 79 18 130/80 97 Weight Admit Weight 229 lb Weight 229 lb I&O: 03/15/19 03/16/19 03/17/19 06:59 06:59 06:59 Intake Total 2300 1880 Balance 2300 1880 Result Diagrams: 03/14/19 07:11 03/16/19 06:44 Phys Exam - Physical Examination HEENT: PERRLA Respiratory: no wheezing, no rales, no rhonchi Cardiovascular: RRR, no significant murmur, no rub Gastrointestinal: soft, non-tender, no distention, positive bowel sounds Musculoskeletal: edema present + bilateral upper extremity edema, and brusing on both arms Dx/Plan (1) UTI (urinary tract infection) Status: Acute Qualifiers: Urinary tract infection type: acute cystitis Hematuria presence: without hematuria Qualified Code(s): N30.00 - Acute cystitis without hematuria Comment: Ucx with yeast spp, start Diflucan 100mg daily, continue empiric Levaquin, IVF's, likely de-escalate abx regimen in 24h, d/c Vancomycin (2) Ureteral calculus, right Code(s): N20.1 - CALCULUS OF URETER Status: Acute Comment: Mild-moderate hypdronephrosis associated with calculus, continue Flomax and IVF's, s/p R ureteral stent placement POD #1 (3) Afib Code(s): I48.91 - UNSPECIFIED ATRIAL FIBRILLATION Status: Chronic Qualifiers: Atrial fibrillation type: chronic Qualified Code(s): I48.2 - Chronic atrial fibrillation Comment: Rate-controlled currently, 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 Vidales- he can be discharged on Diflucan for 3 weeks * Nephrolithiasis- he has undergone stone extraction and STENT placement * AFIB- his heart rate is stable * Likely home in the AM.
--- NOTE | 2019-03-16 21:25 | CON ---
DATE OF CONSULTATION: 03/16/2019 REASON FOR CONSULT: Pyelonephritis with obstruction. 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 He was brought for evaluation and was found hypoxemic and was admitted for management. Initial findings included BP 104/67, heart rate 86, respirations 20, and temperature 101.9. He had dry oral mucosa. A few basilar inspiratory crackles, right and left lung base. Heart exam was normal. Abdomen with no tenderness. There is edema in the lower extremities. Initial labs; sodium 139, creatinine 2.07. BNP 465. White cell count 15.6, hemoglobin 10.8, platelets 210. PH 7.4, PO2 24, pCO2 53. Urinalysis with greater than 50 wbc's, 30 protein, 0-3 rbc's. Imaging studies; there is a chest x-ray with no acute cardiopulmonary process. Abdomen and pelvis CT showed contrast within the urinary collecting system, distention of the right renal collecting system and 0.3 cm calculus within the distal right ureter. Chest CT angio with no evidence of pulmonary embolism. Small amount of pericardial fluid. Currently, Mr. Flores appears chronically ill, but in no acute distress. He knows where he is. Follows commands. Oriented. Denies any headaches. No shortness of breath or chest pain. The abdominal pain has resolved. PAST MEDICAL HISTORY: Includes CVA, hemorrhagic, right MCA distribution; left-sided weakness; seizure disorder; atrial fibrillation; hypertension; hypothyroidism; BPH. PAST SURGICAL HISTORY: Cholecystectomy, shoulder replacement, thyroid surgery, colectomy for removal of polyp. ALLERGIES: PENICILLIN. SOCIAL HISTORY: Lives in [facility], window, two children. FAMILY HISTORY: Noncontributory. CURRENT MEDICATIONS: 1. Tylenol. 2. Ecotrin. 3. Lipitor. 4. Tums. 5. Colace. 6. Pepcid. 7. Diflucan. 8. Keppra. 9. Levofloxacin. 10. Tamsulosin. PHYSICAL EXAMINATION: VITAL SIGNS: T-max 98.8, blood pressure 170/90, pulse 76, respirations 18. SKIN: Shows extensive areas of bruising in the upper extremities, area of gluteal skin abrasion stage 1-2, areas of pressure damage, and evidence of onycholysis toenails, bruising in the knees and ankles and legs, probably from fall, an extensive area of abrasion with laceration of the skin of the right forearm from fall as well. In the dorsal aspect of the right hand, there is an area of dark eschar noted. The patient is voiding in the diaper. NECK: He has a peripheral IV access in the left neck, external jugular. HEENT: Ocular movements conjugate. The patient has no remaining teeth. Moist mucosa. LUNGS: Symmetric, clear breath sounds. HEART: S1 and S2, regular rate. ABDOMEN: Soft, not distended. Tenderness that present in the right side has resolved. 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 Pulses are 1+ in dorsalis pedis. He is able to move extremities, but is diffusely weak. He has pretty good strength in the left upper extremity. NEUROLOGIC: He is awake, oriented, little sluggish responses, but he knows where he is, a little hesitant speech pattern, but no trouble finding words. LABORATORY DATA: His white cell count was 15.6 and now 17.6, hemoglobin 10, platelets [id number] with 74% neutrophils, 13% bands. Creatinine is at 1.26, which is down from admission and sodium 143. Urinalysis has been discussed. Microbiology with Julia tropicalis from urine culture, 10-25 CFUs per mL. Two sets of blood cultures with 1/2 with coagulase negative Staphylococcus, probably contaminant. He did have Julia tropicalis in urine culture from October and had a Pseudomonas aeruginosa from June, that Pseudomonas was resistant to quinolones. ASSESSMENT: 1. 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 2. Nephrolithiasis with mild hydronephrosis, status post removal of stone and stent placement. 3. Neutrophilia with a left shift and fever. 4. Julia tropicalis retrieved from the urine culture. DISCUSSION: The patient has had the urological procedure and now that the obstruction is relieved, he can be switched to oral Diflucan. I would recommend increase the dose to 400 mg and continue treatment for a total of 3 weeks. The other culture have been finalized, so I think we can discontinue the levofloxacin. Job ID: [id number]
[2019-03-17] MEDS: Levothyroxine Sodium 125 MCG TAB PO SCH (05:55)
[2019-03-17] MEDS: Acetaminophen/Codeine 30-300mg Tablet PO PRN ×2 (05:57→13:13)
[2019-03-17] MEDS: Famotidine 20 MG TAB PO SCH (09:44)
[2019-03-17] MEDS: Tamsulosin HCl 0.4 MG CAP PO SCH (09:45)
[2019-03-17] MEDS: Atorvastatin Calcium 20 MG TAB PO SCH (09:45)
[2019-03-17] MEDS: Aspirin 81 mg Enteric Coated Tablet PO SCH (09:45)
[2019-03-17] MEDS: Docusate 100 MG CAP PO SCH (09:45)
[2019-03-17] MEDS: Midodrine HCl 5 MG TAB PO SCH ×3 (09:45→16:03)
[2019-03-17] MEDS: Senokot S 8.6-50 MG TAB PO SCH (09:47)
[2019-03-17] MEDS: levETIRAcetam 500 MG TAB PO SCH (09:47)
[2019-03-17] MEDS ORDERED: Fluconazole 100 MG TAB PO SCH (15:00)
--- NOTE | 2019-03-17 15:22 | PDOC.PN ---
- Subjective Encounter Start Date: 03/17/19 Encounter Start Time: 11:15 Mr. Flores was seen today in follow-up of UTI and Nephrolithiasis. He says he feels " blah" today. No new complaints, he continues with chronic joint pains. - Objective Resuscitation Status - Order Detail: 03/11/19 20:04 Resuscitation Status Routine Resuscitation Status: DNAR: NO Resuscitation Discussed with: discussed with the patient MAR Reviewed: Yes Vital Signs & Weight: Vital Signs (12 hours) Temp Pulse Resp BP Pulse Ox 03/17/19 08:00 99 03/17/19 07:54 97.0 F L 78 16 159/73 H 99 03/17/19 05:46 98.3 F 80 18 158/72 H 100 Weight Admit Weight 229 lb Weight 229 lb I&O: 03/16/19 03/17/19 03/18/19 06:59 06:59 06:59 Intake Total 1880 747 Balance 1880 747 Result Diagrams: 03/14/19 07:11 03/16/19 06:44 Phys Exam - Physical Examination HEENT: PERRLA Respiratory: no wheezing, no rales, no rhonchi, clear to auscultation bilateral Cardiovascular: RRR, no significant murmur, no rub Gastrointestinal: soft, non-tender, no distention, positive bowel sounds Musculoskeletal: pulses present, edema present + both upper and lower extremity edema scattered bruising over his extremities Dx/Plan (1) UTI (urinary tract infection) Status: Acute Qualifiers: Urinary tract infection type: acute cystitis Hematuria presence: without hematuria Qualified Code(s): N30.00 - Acute cystitis without hematuria Comment: Ucx with yeast spp, start Diflucan 100mg daily, continue empiric Levaquin, IVF's, likely de-escalate abx regimen in 24h, d/c Vancomycin (2) Ureteral calculus, right Code(s): N20.1 - CALCULUS OF URETER Status: Acute Comment: Mild-moderate hypdronephrosis associated with calculus, continue Flomax and IVF's, s/p R ureteral stent placement POD #1 (3) Afib Code(s): I48.91 - UNSPECIFIED ATRIAL FIBRILLATION Status: Chronic Qualifiers: Atrial fibrillation type: chronic Qualified Code(s): I48.2 - Chronic atrial fibrillation Comment: Rate-controlled currently, 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
[2019-03-17 17:32] VITALS: BP 167/86; TEMP 98.4
--- NOTE | 2019-03-18 01:01 | DIS ---
DATE OF ADMISSION: 03/11/2019 DATE OF DISCHARGE: 03/17/2019 PRIMARY CARE PHYSICIAN: Dr. Zakia Soni. DISCHARGE DIAGNOSES: 1. Complicated urinary tract infection. 2. Nephrolithiasis with obstruction. 3. History of recent cerebrovascular accident. 4. Seizure disorder. 5. Atrial fibrillation. 6. Hypertension. DISCHARGE MEDICATIONS: 1. Diflucan 400 mg one p.o. daily for 3 weeks. 2. Keppra 500 mg twice daily. 3. Zinc sulfate 220 mg daily. 4. Kenalog cream. 5. Flomax 0.4 mg daily. 6. Fleet enema p.r.n. 7. Zoloft 75 mg daily. 8. Senna 8.6 mg twice daily. 9. MiraLAX 17 g p.o. daily. 10. Azo 97.5 mg t.i.d. 11. Ditropan XL 5 mg daily. 12. Zofran 4 mg q.6 as needed. 13. Nitrostat 0.4 sublingual. 14. Multivitamin once a day. 15. ProAmatine 10 mg t.i.d. 16. Synthroid 150 mcg daily. 17. Gabapentin 200 mg t.i.d. 18. Furosemide 40 mg daily. 19. Vitamin D3 2000 units daily. 20. Calcium carbonate 600 mg daily. 21. Dulcolax 10 mg per rectum daily. 22. Lipitor 20 mg at bedtime. 23. Aspirin 81 mg daily. 24. Vitamin C 500 mg twice a day. 25. Tylenol with codeine or Tylenol No.3 q.4 hours as needed. PROCEDURES DONE DURING ADMISSION: The patient had a CT scan of the abdomen and pelvis. This revealed fecal impaction and a partial obstruction of the right ureter by a 3 mm stone. The patient had a CT angiogram of the chest, which was negative for pulmonary embolism. The patient had a cystourethroscopy with right ureteroscopy and stone extraction and a right ureteral stent placement. CODE STATUS: DNAR. ALLERGIES: PENICILLIN. HOSPITAL COURSE: Mr. Flores is a pleasant 89-year-old gentleman, who was brought to the emergency room as he was having generalized weakness and feeling bad. He was found to have a urinary tract infection and also was found to have a right ureteral stone. He was admitted and started on IV antibiotics. Urology Service was consulted. He was seen by Dr. Demarco who performed a retrograde pyelogram and ultimately, he underwent a cystourethroscopy with stone extraction and stent placement on the right ureter. Cultures from the urine and pathology from the cystourethroscopy revealed fungal elements and the culture grew Julia tropicalis. For this reason, ID was consulted and it was recommended that he be changed to Diflucan 400 mg daily for 3 weeks. Levaquin could be discontinued. Once he was stabilized, he was able to be discharged back to the [facility]. Job ID: [id number]
[2019-03-19 16:08] LABS: Color Orange (.); Comment Note: (.); Stone Weight 2.3 mg (.); Uric Acid 100 % (.)
== END 2019-03-17 17:12 | DRG 660 ==
LOC: ERS 15:14 → 2NO 19:00 → T4-B 03-13 23:35
PROVIDERS: ADMIT Internal Medicine; ATTEND Internal Medicine
PROC: 0TC68ZZ Extirpation of Matter from Right Ureter, Via Natural or Artificial Opening Endoscopic (ICD-10-PCS; principal; 2019-03-13)
PROC: 0T768DZ Dilation of Right Ureter with Intraluminal Device, Via Natural or Artificial Opening Endoscopic (ICD-10-PCS; 2019-03-13)
PROC: BT1DYZZ Fluoroscopy of Right Kidney, Ureter and Bladder using Other Contrast (ICD-10-PCS; 2019-03-13)
DX: N13.6 Pyonephrosis (principal); I69.354 Hemiplegia and hemiparesis following cerebral infarction affecting left non-dominant side; C91.90 Lymphoid leukemia, unspecified not having achieved remission; B37.49 Other urogenital candidiasis; Z66 Do not resuscitate; N17.9 Acute kidney failure, unspecified; K21.9 Gastro-esophageal reflux disease without esophagitis; E86.0 Dehydration; K59.09 Other constipation; I48.2 Chronic atrial fibrillation; G40.909 Epilepsy, unspecified, not intractable, without status epilepticus; J44.9 Chronic obstructive pulmonary disease, unspecified; I25.10 Atherosclerotic heart disease of native coronary artery without angina pectoris; E03.9 Hypothyroidism, unspecified; E78.5 Hyperlipidemia, unspecified; I12.9 Hypertensive chronic kidney disease with stage 1 through stage 4 chronic kidney disease, or unspecified chronic kidney disease; N18.9 Chronic kidney disease, unspecified; Z88.0 Allergy status to penicillin; Z79.82 Long term (current) use of aspirin; Z79.899 Other long term (current) drug therapy; Z90.49 Acquired absence of other specified parts of digestive tract; Z98.49 Cataract extraction status, unspecified eye
CPT/HCPCS: 36415; 51701; 71045; 71275; 74018; 74176; 74420; 80048; 80053; 80202; 81003; 81015; 82365; 82550; 82805; 83605; 83690; 83880; 84484; 85007; 85025; 85027; 85379; 87040; 87086; 87149; 87324; 87449; 88112; 88300; 93005; 94760; 96361; 96365; C1758; C1769; J0360; J1100; J1170; J1450; J1956; J2001; J2405; J2704; J3010; J3370; Q9961; Q9966; S0028